=== PATIENT | male | born 1945 | race Caucasian/White ===

== ENCOUNTER 2019-12-29 09:58 | Outpatient (REF) | payer OTHER, MEDICARE, SELFPAY ==
[2019-12-29 11:57] LABS: Prostate Specific Antigen 2.06 ng/mL (<0.05-4.0)
== END 2019-12-29 09:59 | disposition home or self-care (01) ==
LOC: HO.LAB 09:58
PROVIDERS: PCP Internal Medicine; Visit Provider Urology
DX: C61 Malignant neoplasm of prostate (principal)
CPT/HCPCS: 84153

== ENCOUNTER 2020-01-21 16:55 | Outpatient (REF) | payer OTHER, MEDICARE, SELFPAY | END 2020-01-21 16:56 | disposition home or self-care (01) | LOC: HO.LAB 16:55 | PROVIDERS: Visit Provider Internal Medicine | DX: Z20.828 Contact with and (suspected) exposure to other viral communicable diseases (principal) | CPT/HCPCS: U0003 ==

== ENCOUNTER 2020-01-23 10:54 | Outpatient (REF) | payer OTHER, MEDICARE, SELFPAY | END 2020-01-23 10:55 | disposition home or self-care (01) | LOC: HO.LAB 10:54 | PROVIDERS: Visit Provider Internal Medicine | DX: Z20.828 Contact with and (suspected) exposure to other viral communicable diseases (principal) | CPT/HCPCS: C9803; U0003 ==

== ENCOUNTER 2020-03-13 07:36 | Outpatient (REF) | payer OTHER, MEDICARE, SELFPAY | END 2020-03-13 07:37 | disposition home or self-care (01) | LOC: HO.LAB 07:36 | PROVIDERS: Visit Provider Internal Medicine | DX: Z20.828 Contact with and (suspected) exposure to other viral communicable diseases (principal) | CPT/HCPCS: C9803; U0003 ==

== ENCOUNTER 2020-04-07 16:53 | Outpatient (REF) | payer OTHER, MEDICARE, SELFPAY ==
[2020-04-07 19:07] LABS: Prostate Specific Antigen 2.17 ng/mL (<0.05-4.0)
== END 2020-04-07 16:54 | disposition home or self-care (01) ==
LOC: HO.LAB 16:53
PROVIDERS: PCP Internal Medicine; Visit Provider Urology
DX: C61 Malignant neoplasm of prostate (principal)
CPT/HCPCS: 36415; 84153

== ENCOUNTER 2020-04-12 11:00 | Outpatient (REF) | payer OTHER, MEDICARE, SELFPAY | END 2020-04-12 11:01 | disposition home or self-care (01) | LOC: HO.LAB 11:00 | PROVIDERS: PCP Internal Medicine; Visit Provider Internal Medicine | DX: Z20.822 Contact with and (suspected) exposure to COVID-19 (principal) | CPT/HCPCS: 36415; C9803; U0003 ==

== ENCOUNTER → 2020-06-04 15:07 | Outpatient (BNVA) | payer MEDICARE, OTHER, SELFPAY | PROVIDERS: PCP Internal Medicine; Visit Provider Urology | CPT/HCPCS: Q3014 ==

== ENCOUNTER 2020-07-11 07:40 | Outpatient (REF) | payer OTHER, MEDICARE, SELFPAY ==
[2020-07-11 08:16] LABS: COVID-19 Test Negative (Negative); IDNOW Serial# 55D5AD1C
== END 2020-07-11 07:41 | disposition home or self-care (01) ==
LOC: HO.LAB 07:40
PROVIDERS: Visit Provider Internal Medicine
DX: Z20.822 Contact with and (suspected) exposure to COVID-19 (principal)
CPT/HCPCS: 36415; 87635; C9803

== ENCOUNTER 2020-12-04 07:24 | Outpatient (REF) | payer OTHER, MEDICARE, SELFPAY ==
[2020-12-04 09:37] LABS: Prostate Specific Antigen 2.95 ng/mL (<0.05-4.0)
== END 2020-12-04 07:25 | disposition home or self-care (01) ==
LOC: HO.LAB 07:24
PROVIDERS: PCP Internal Medicine; Visit Provider Urology
DX: Z12.5 Encounter for screening for malignant neoplasm of prostate (principal); N13.8 Other obstructive and reflux uropathy; N40.1 Benign prostatic hyperplasia with lower urinary tract symptoms
CPT/HCPCS: 36415; 84153

== ENCOUNTER → 2020-12-09 13:29 | Outpatient (BNVA) | payer OTHER, MEDICARE, SELFPAY | PROVIDERS: PCP Internal Medicine; Visit Provider Urology ==

== ENCOUNTER 2021-03-03 11:50 | Emergency (ER) | payer OTHER, MEDICARE, SELFPAY ==
--- NOTE | ~2021-03-03 | US_ITS ---
EXAMINATION: US VENOUS ULTRASOUND WITH DOPPLER LOWER EXTREMITY, RIGHT CLINICAL INFORMATION: Right leg pain. Suspected DVT. COMPARISON: None TECHNIQUE: Ultrasound of the deep veins is performed from the hip to the calf with compression sonography and color and pulse Doppler assessment. Spectral analysis with color-flow imaging is performed. FINDINGS: There is normal venous compression and respiratory variation and augmented flow. The visualized common femoral vein, superficial femoral vein, profunda femoral vein, popliteal vein, and the trifurcation region shows no evidence of deep venous thrombosis. There is no significant popliteal fossa cyst. If the patient's symptoms persist, followup ultrasound in 5 days 7 days might be of value to exclude proximal propagation from a non-visualized calf vein. US/US venous duplex LE RT IMPRESSION: No DVT demonstrated in the right lower extremity.
--- NOTE | ~2021-03-03 | XR_ITS ---
EXAMINATION: XR KNEE, RIGHT CLINICAL INFORMATION: Right knee pain COMPARISON: None TECHNIQUE: Four views of the right knee. FINDINGS: There is no fracture or dislocation or destructive process. There is thickening of the distal quadriceps with spurring at the patellar insertion. Hoffa's fat pad appears normal. There is no focal joint narrowing or erosive change or chondrocalcinosis. Scattered atherosclerotic calcifications vasculature is seen. XR/XR knee RT 4V IMPRESSION: Spurring at quadriceps insertion patella.
[2021-03-03 11:57] VITALS: BP 146/74; PULSE 65; RESP 18; TEMP 36.6; O2SAT 98; BMI 23.3
[2021-03-03 15:47] LABS: Basophils Percent Auto 0.1 % (0-2); Eosinophils Absolute Auto 0.7 X10*3/uL (0.0-0.4); Eosinophils Percent Auto 10.7 % (0-4); Hematocrit 43.6 % (42.0-52.0); Hemoglobin 14.9 g/dl (14.0-18.0); Imm Gran Abs Auto 0.01 X10*3/uL (0.00-0.03); Imm Gran Pct Auto 0.1 % (0.0-0.4); Lymphocytes Absolute Auto 1.3 X10*3/uL (1.2-4.9); Lymphocytes Percent Auto 18.5 % (20-40); MANUAL DIFF FLAG NO; Mean Corpuscular HGB Conc 34.2 g/dl (31.0-36.0); Mean Corpuscular Hemoglobin 30.8 pg (27.0-33.0); Mean Corpuscular Volume 90.3 fL (80.0-98.0); Monocytes Absolute Auto 0.5 X10*3/uL (0.1-1.2); Monocytes Percent Auto 7.9 % (2-11); Neutrophils Absolute Auto 4.3 x10*3/uL (2.0-8.3); Neutrophils Percent Auto 62.7 % (45-73); Platelet Count 191 X10*3/uL (160-400); Red Blood Count 4.83 X10*6/uL (4.60-5.80); Red Cell Distribution Width 12.9 % (11.0-16.0); White Blood Count 6.9 X10*3/uL (4.8-10.8)
[2021-03-03 15:53] LABS: Partial Thromboplastin Time 36.4 SEC (24.1-38.0)
[2021-03-03 16:09] VITALS: BP 137/77; PULSE 60; RESP 17; TEMP 36.2; O2SAT 98
[2021-03-03 16:18] LABS: Anion Gap 11 (12-20); Blood Urea Nitrogen 16 mg/dL (9-16); Calcium 9.2 mg/dL (8.4-10.2); Carbon Dioxide 29 mmol/L (22-29); Chloride 105 mmol/L (96-108); Creatinine Clr Calc Pharmacy 57.9; Estimated Glomerular Filt Rate > 60; Glucose Random 93 mg/dL (60-115); Potassium 4.8 mmol/L (3.3-5.1); Sodium 140 mmol/L (135-145)
--- NOTE | 2021-03-03 16:44 | ED_ITS ---
HPI - Extremity Problem General Chief complaint: General Medical Stated complaint: Blood clot R leg? 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 Denies any fevers, chills, dizziness, headaches, neck pain / stiffness, chest pain or shortness of breath, dyspnea on exertion, orthopnea, palpitations, nausea/ vomiting/ diarrhea, abdominal pain, lower extremity edema or calf tenderness, recent travel or sick contacts, recent falls, paresthesias, numbness / tingling, rashes, surrounding erythema, swelling, Cyanosis, trauma or any other symptoms complaints or concerns at this time. MD Complaint: extremity pain Onset (ago): day(s) (5) Pain Consistency: constant Location: right Quality: aching Radiation: none Relieving factors: nothing Exacerbating factors: palpation ( or flexion of the knee) Associated symptoms: denies other symptoms Context: history of DVT ( on Eliquis due to DVT to left lower extremity) Related Data Home Medications Medication Instructions Recorded Confirmed apixaban 5 mg tablet 5 mg PO BID 06/04/20 peg 3350-electrolytes 236 8 ml PO DIRECTED 06/04/20 gram-22.74 gram-6.74 gram-5.86 gram solution Previous Rx's Medication Instructions Recorded tramadol 50 mg tablet 50 mg PO Q8H PRN #14 tab 03/03/21 Allergies Allergy/AdvReac Type Severity Reaction Status Date / Time No Known Allergies Allergy Verified 06/04/20 15:31 Review of Systems Review of Systems: Constitutional : No Weight loss, No Fever, No Chills, No Night Sweats, No Fatigue, No Malaise ENT/Mouth : No Hearing loss, No Ear Pain, No Nasal Congestion, No Sinus Pain, No Hoarseness, No sore throat, No Rhinorrhea, No Swallowing Difficulty Eyes: No Eye Pain, No Swelling, No Redness, No Foreign Body, No Discharge, No Vision Changes Cardiovascular : No Chest Pain, No SOB, No Dyspnea on Exertion, No Orthopnea, No Edema, No Palpitations Respiratory : No Cough, No Sputum, No Wheezing, No Smoke Exposure, No Dyspnea Gastrointestinal : No Nausea, No Vomiting, No Diarrhea, No Constipation, No abdominal Pain, No Hematochezia, No Melena Genitourinary : no irregular bleeding, No Dysuria, No Urinary Frequency, No Hematuria, No Urinary Incontinence, No Urgency, No Flank Pain, No Urinary Flow Changes, No Hesitancy Musculoskeletal : + right knee joint pain, No Myalgias, No Joint Swelling Skin : No Skin Lesions, No rash Neuro : No Weakness, No Numbness, No Paresthesias, No Loss of Consciousness, No Dizziness, No Headache Psych : No Anxiety/Panic, No Depression, No SI/HI/AH/VH, No Social Issues, Heme/Lymph: No Bruising, No Bleeding,No Lymphadenopathy Endocrine : No Polyuria, No Polydipsia, No Temperature Intolerance Yes all other systems are reviewed and are negative [facility] Past Medical History Attestation statement: The following information was validated with the patient. Medical History Elevated PSA Prostate cancer Social History Social History Advance Directives: No Advance Directives Information Provided: No Physical Exam Vital Signs: Vital Signs: Last Vital Signs Temp 97.2 F 03/03/21 16:09 Pulse 60 03/03/21 16:09 Resp 17 03/03/21 16:09 BP 137/77 03/03/21 16:09 Pulse Ox 98 03/03/21 16:09 BMI result Body Mass Index 23.3 vital signs have been reviewed as normal and appeared to be correct. Blood pressure 146/74. Heart rate normal. Respiration rate normal. Temperature normal. Oxygen saturation normal. Appearance: Alert. Oriented X3. No acute distress. Head: Normal external exam. Normocephalic. Atraumatic. Eyes: PERRLA. EOMI. Conjunctiva and sclera normal. Eyelids normal. ENT: Pharynx normal. Uvula midline. Moist mucous membranes. Neck: Normal inspection. Neck supple. FROM. No adenopathy. No meningeal signs. CVS: Normal heart rate and rhythm. Heart sound normal. Pulses normal throughout. No murmurs/rales/gallops. Respiratory: No respiratory distress. Painless inspiration. Breath sounds normal. No wheezes/rales/rhonchi noted. Chest nontender. No accessory muscle usage noted or decreased air movement noted. Back: Full range of motion noted. No rashes/lesion/induration/fluctuance or signs of infection noted. Skin: Skin warm and dry. Normal skin color. Normal skin turgor. No rashes/lesions/lacerations noted. Extremities: No lower extremity edema. no calf tenderness is noted. Patient noted to have mild tenderness to palpation with flexion of the knee at the medial aspect no obvious ligamentous or tendon injury. No signs of infection. No joint effusion noted. No fluctuance/induration/ rashes noted. Otherwise patient has full range of motion of the right knee. And otherwise all other Extremities exhibit normal range of motion and nontender. Neuro: Oriented X 3. No motor deficit. No sensory deficit. Reflexes normal. Normal steady gait. No focal neuro deficits noted. Vascular: + radial pulses/+ 2 distal pedal pulses/+2 dorsalis pedis b/l. Normal cap refill. No cyanosis noted to upper extremity nails and lower extremity toes nails. Course Course Course Narrative: x-ray revealed bone spur/chronic changes no acute processes. Therefore will DC home with symptomatic treatment instructions follow-up with PCP. Patient understands agrees with this plan. 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 on exam patient has mild tenderness no obvious ligamentous to tenderness or signs of infection no joint effusion. No calf tenderness. No lower extremity edema noted. ultrasound ordered while the patient was in the waiting room and negative for DVT. Therefore x-ray of right knee ordered at this time. Will re- evaluate. If x-ray negative will DC home with symptomatic treatment instructions follow up with his PCP and to return if any new or worsening symptoms. Patient understands agrees this time. Differential Diagnosis Differential diagnosis: Likely gout, superficial thrombophlebitis and deep vein thrombosis of lower extremity Medical Records Attestation: I reviewed the patient's medical records. Lab Data Result diagrams: 03/03/21 15:38 03/03/21 15:38 Labs: Lab Results 03/03/21 03/03/21 03/03/21 Range/Units 15:38 15:38 15:38 WBC 6.9 (4.8-10.8) X10*3/uL RBC 4.83 (4.60-5.80) X10*6/uL Hgb 14.9 (14.0-18.0) g/dl Hct 43.6 (42.0-52.0) % MCV 90.3 (80.0-98.0) fL MCH 30.8 (27.0-33.0) pg MCHC 34.2 (31.0-36.0) g/dl RDW 12.9 (11.0-16.0) % Plt Count 191 (160-400) X10*3/uL MPV 10.0 (9.4-12.4) fL Immature Gran % (Auto) 0.1 (0.0-0.4) % Neut % (Auto) 62.7 (45-73) % Lymph % (Auto) 18.5 L (20-40) % [place] % (Auto) 7.9 (2-11) % Eos % (Auto) 10.7 H (0-4) % Baso % (Auto) 0.1 (0-2) % Lymph # (Auto) 1.3 (1.2-4.9) X10*3/uL [place] # (Auto) 0.5 (0.1-1.2) X10*3/uL Eos # (Auto) 0.7 H (0.0-0.4) X10*3/uL Baso # (Auto) 0.0 (0.0-0.2) X10*3/uL Abs Immat Gran (auto) 0.01 (0.00-0.03) X10*3/uL Absolute Neuts (auto) 4.3 (2.0-8.3) x10*3/uL Absolute Nucleated RBC 0.000 (0.0-0.012) X10*3/uL Nucleated RBC % (auto) 0.0 (0.0-0.2) /100WBC APTT 36.4 (24.1-38.0) SEC Sodium 140 (135-145) mmol/L Potassium 4.8 (3.3-5.1) mmol/L Chloride 105 (96-108) mmol/L Carbon Dioxide 29 (22-29) mmol/L Anion Gap 11 L (12-20) BUN 16 (9-16) mg/dL Creatinine 1.01 (0.5-1.4) mg/dL Estim Creat Clear Calc 57.9 Estimated GFR > 60 Random Glucose 93 (60-115) mg/dL Calcium 9.2 (8.4-10.2) mg/dL Imaging Data Right knee x-ray: Attestation: I personally reviewed and interpreted this imaging study as follows: Radiologist's impression: FINDINGS: There is no fracture or dislocation or destructive process. There is thickening of the distal quadriceps with spurring at the patellar insertion. Hoffa's fat pad appears normal. There is no focal joint narrowing or erosive change or chondrocalcinosis. Scattered atherosclerotic calcifications vasculature is seen.? XR/XR knee RT 4V IMPRESSION: Spurring at quadriceps insertion patella. venous duplex ultrasound of right lower extremity: Attestation: I personally reviewed and interpreted this imaging study as follows: Radiologist's impression: FINDINGS: There is normal venous compression and respiratory variation and augmented flow. The visualized common femoral vein, superficial femoral vein, profunda femoral vein, popliteal vein, and the trifurcation region shows no evidence of deep venous thrombosis. ? There is no significant popliteal fossa cyst. If the patient's symptoms persist, followup ultrasound in 5 days 7 days might be of value to exclude proximal propagation from a non-visualized calf vein. US/US venous duplex LE RT IMPRESSION: No DVT demonstrated in the right lower extremity. Discharge Plan Discharge Clinical Impression: Osteoarthritis, Bone spur Patient Disposition: Home, Self-Care Instructions: Osteoarthritis (ED), Tendinitis (ED) Prescriptions: New tramadol 50 mg tablet 50 mg PO Q8H PRN (Reason: pain) Qty: 14 RF: 0 Referrals: Zeke Herrera MD [Primary Care Provider] - 2 days Print Language: Ukrainian
== END 2021-03-03 18:25 | disposition home or self-care (01) ==
PROVIDERS: Emergency Provider Emergency Medicine; PCP Internal Medicine
DX: M25.561 Pain in right knee (principal); M17.11 Unilateral primary osteoarthritis, right knee; M77.9 Enthesopathy, unspecified; Z86.718 Personal history of other venous thrombosis and embolism; Z79.01 Long term (current) use of anticoagulants; Z85.46 Personal history of malignant neoplasm of prostate
CPT/HCPCS: 36415; 73564; 80048; 85025; 85730; 93971; 99284

== ENCOUNTER 2021-03-16 09:13 | Outpatient (REF) | payer OTHER, MEDICARE, SELFPAY ==
[2021-03-16 11:04] LABS: COVID-19 Test Negative (Negative)
== END 2021-03-16 09:14 | disposition home or self-care (01) ==
LOC: HO.LAB 09:13
PROVIDERS: Visit Provider Internal Medicine
DX: Z20.822 Contact with and (suspected) exposure to COVID-19 (principal)
CPT/HCPCS: 36415; 87635; C9803

== ENCOUNTER 2021-03-18 11:44 | Outpatient (REF) | payer OTHER, MEDICARE, SELFPAY ==
[2021-03-18 14:31] LABS: COVID-19 Test Positive (Negative)
== END 2021-03-18 11:45 | disposition home or self-care (01) ==
LOC: HO.LAB 11:44
PROVIDERS: Visit Provider Internal Medicine
DX: Z20.822 Contact with and (suspected) exposure to COVID-19 (principal)
CPT/HCPCS: 36415; 87635; C9803

== ENCOUNTER 2021-04-09 07:17 | Outpatient (REF) | payer OTHER, MEDICARE, SELFPAY | END 2021-04-09 07:18 | disposition home or self-care (01) | LOC: HO.LAB 07:17 | PROVIDERS: PCP Internal Medicine; Visit Provider Urology | DX: Z12.5 Encounter for screening for malignant neoplasm of prostate (principal); C61 Malignant neoplasm of prostate | CPT/HCPCS: 36415; 84153 ==

== ENCOUNTER 2021-04-10 13:54 | Outpatient (REF) | payer OTHER, MEDICARE, SELFPAY ==
[2021-04-10 16:19] LABS: Urine Cytology See Pathology rpt
== END 2021-04-10 13:55 | disposition home or self-care (01) ==
LOC: HO.LAB 13:54
PROVIDERS: PCP Internal Medicine; Visit Provider Urology
DX: C61 Malignant neoplasm of prostate (principal); Z13.9 Encounter for screening, unspecified
CPT/HCPCS: 88112

== ENCOUNTER 2021-04-27 14:58 | Outpatient (REF) | payer OTHER, MEDICARE, SELFPAY ==
[2021-04-29 13:54] LABS: Vitamin B12 572 pg/mL (200-900)
== END 2021-04-27 14:59 | disposition home or self-care (01) ==
LOC: HO.LAB 14:58
PROVIDERS: PCP Internal Medicine; Visit Provider Psychiatry & Neurology Neurology
DX: G31.84 Mild cognitive impairment of uncertain or unknown etiology (principal)
CPT/HCPCS: 36415; 82607

== ENCOUNTER 2021-06-25 09:37 | Emergency (ER) | payer OTHER, MEDICARE, SELFPAY ==
--- NOTE | ~2021-06-25 | XR_ITS ---
EXAMINATION: XR CHEST CLINICAL INFORMATION: Cough COMPARISON: None TECHNIQUE: 2 views of the chest were obtained. FINDINGS: The lungs are well expanded. There is no focal consolidation, edema, or effusion. No pneumothorax. The cardiomediastinal silhouette is within normal limits. No acute osseous abnormality. Degenerative changes of the spine. XR/XR chest 2V IMPRESSION: Unremarkable examination.
[2021-06-25 09:50] VITALS: BP 137/76; PULSE 82; RESP 16; TEMP 37.2; O2SAT 98; BMI 22.8
[2021-06-25 10:42] LABS: COVID-19 Test Negative (Negative)
[2021-06-25 10:46] LABS: Influenza A Negative (Negative); Influenza B2 Negative (Negative)
[2021-06-25 12:42] VITALS: PULSE 69; RESP 20; O2SAT 99
[2021-06-25] MEDS: Albuterol/Iprat 2.5/0.5MG 3 ML AMPUL.NEB INHALE (12:42)
[2021-06-25] MEDS: Benzonatate 100 MG CAPSULE PO (12:50)
[2021-06-25] MEDS: HYDROcodone/Homat 5/1.5/5 ML 5 ML SYRUP PO (12:50)
--- NOTE | 2021-06-25 14:22 | ED.URI ---
HPI - URI/Sore Throat General Chief Complaint: Upper Respiratory Symptoms Stated Complaint: cough Time Seen by Provider: 06/25/21 12:18 Source: patient Mode of arrival: ambulatory History of Present Illness HPI Narrative: 76-year-old male with a past medical history of prostate CA, presenting to the ED complaining of nonproductive cough, rhinorrhea/nasal congestion x few days. Admits to taking at home COVID test that was negative. Denies fever, chills, ear pain, sore throat, SOB, CP, pedal edema, calf pain, recent travel, sick contacts. MD elicited complaint: cough, rhinorrhea and nasal congestion Onset (ago): day(s) Related Data Home Medications Medication Instructions Recorded Confirmed apixaban 5 mg tablet 5 mg PO BID 06/04/20 peg 3350-electrolytes 236 8 ml PO DIRECTED 06/04/20 gram-22.74 gram-6.74 gram-5.86 gram solution Previous Rx's Medication Instructions Recorded tramadol 50 mg tablet 50 mg PO Q8H PRN #14 tab 03/03/21 albuterol sulfate 90 mcg/actuation 2 puff INHALATION Q4-6H PRN #6.7 g 06/25/21 aerosol inhaler azithromycin 250 mg tablet See Rx Instructions .ROUTE 06/25/21 .COMPLEX #6 tab benzonatate 100 mg capsule 100 mg PO TID PRN #14 cap 06/25/21 fluticasone propionate 50 2 spray INTRANASAL DAILY #16 g 06/25/21 mcg/actuation nasal spray,suspension (Flonase Allergy Relief) Allergies Allergy/AdvReac Type Severity Reaction Status Date / Time No Known Allergies Allergy Verified 04/10/21 14:02 Review of Systems Review of Systems: Constitutional: No Fever, No Chills ENT/Mouth: No Ear Pain, + Nasal Congestion, No Sinus Pain, No Hoarseness, No sore throat, + Rhinorrhea, No Swallowing Difficulty Cardiovascular: No Chest Pain, No SOB Respiratory: + Cough, No Sputum, No Wheezing Gastrointestinal: No Nausea, No Vomiting, No Diarrhea, No Constipation, No Abdominal pain Genitourinary: No Dysuria, No Urinary Frequency, No Urgency, No Flank Pain Musculoskeletal: No joint pain, No Myalgias, No Joint Swelling Skin: No Skin Lesions, No rash Neuro: No Weakness, No Numbness, No Paresthesias Yes all other systems are reviewed and are negative COUNTS INCLUDE 234 BEDS AT THE [facility] Past Medical History Attestation statement: The following information was validated with the patient. Medical History Elevated PSA Prostate cancer Social History Social History Advance Directives: Yes Advance Directives Information Provided: Yes Advance Directives on File: No Physical Exam Vital Signs: Vital Signs: Last Vital Signs Temp 98.9 F 06/25/21 09:50 Pulse 69 06/25/21 12:42 Resp 20 06/25/21 12:42 BP 137/76 06/25/21 09:50 Pulse Ox 98 06/25/21 09:50 BMI result Body Mass Index 22.8 Const: General: cooperative, healthy appearing and no acute distress Orientation/consciousness: patient oriented x3 Limitations: no limitations HEENT: Head: Yes normal to inspection Ears: hearing grossly normal bilaterally, external ears normal, TM's normal bilaterally and mastoids normal General nose exam: Normal external nose present Face and sinus: Yes normal facial exam Mouth: Normal oral and palatal mucosa present Throat: Yes posterior oropharynx normal, Yes uvula midline, No peritonsillar mass, No uvula laterally displaced and No uvular edema Eyes: General: appearance normal, both eyes and all related structures EOM: EOMs intact bilaterally Neck: Neck: Yes normal visual inspection and Yes no meningeal signs Resp: Other: Coarse lung sounds throughout. Good air movement. Effort & Inspection: normal respiratory effort, no respiratory distress, no stridor and not tachypneic Auscultation: no wheezes Cardio: Rate: regular rate Heart sounds: S1 normal heart sound present and S2 normal heart sound present Skin: Rashes: no rashes Wounds: no wounds Neuro: General: patient oriented x3 and no meningeal signs Gait exam (Neuro): Normal gait present Extrem: General: Yes normal to inspection, Yes no pedal edema and Yes no calf tenderness Course Course Course Narrative: -COVID-19/influenza negative XR chest 2V IMPRESSION: Unremarkable examination. >> results discussed with patient including worrisome signs and symptoms and strict return precautions MDM - URI/Sore Throat MDM Narrative Medical decision making narrative: 76-year-old male with a past medical history of prostate CA, presenting to the ED complaining of nonproductive cough, rhinorrhea/nasal congestion x few days. On exam vital signs stable, NAD/nontoxic-appearing, physical exam as above. Concern for viral syndrome including COVID-19/influenza vs pneumonia vs bronchitis. Low concern for ACS/PE Plan: CXR, COVID-19/influenza testing, DuoNeb, Tessalon Perles/Hycodan Differential Diagnosis Differential diagnosis: Likely upper respiratory infection, sinusitis, viral infection, bronchitis and influenza Medical Records Attestation: I reviewed the patient's medical records. Lab Data Attestation: I reviewed the patient's lab results. Labs: Lab Results 06/25/21 06/25/21 Range/Units 09:56 09:56 COVID-19 ([facility]) Negative (Negative) COVID-19 Clin Com See Note Influenza Type A (CUONG) Negative (Negative) Influenza Type B (CUONG) Negative (Negative) Influenza A & B Note See Note Discharge Plan Discharge Clinical Impression: Upper respiratory infection Patient Disposition: Home, Self-Care Instructions: Upper Respiratory Infection (DC) Additional Instructions: You tested negative for COVID-19 and the flu. your chest x-ray was unremarkable Azithromycin is an antibiotic please take as prescribed. Tessalon Perles are for cough. Flonase is a nasal decongestion, take as needed Albuterol is an inhaler which will help open your airways, use for wheezing/shortness of breath If her symptoms persist or worsen, you develop fever, shortness of breath, chest pain please return to the emergency department. Please follow-up with your doctor Prescriptions: New azithromycin 250 mg tablet See Rx Instructions .ROUTE .COMPLEX Qty: 6 0RF Rx Instructions: take 500 mg today (day 1), then 250 mg for 4 days (days 2-5) albuterol sulfate 90 mcg/actuation HFA aerosol inhaler 2 puff inhalation Q4-6H PRN (Reason: shortness of breath or wheezing) Qty: 6.7 0RF fluticasone propionate [Flonase Allergy Relief] 50 mcg/actuation spray,suspension 2 spray intranasal DAILY Qty: 16 0RF Rx Instructions: administer into each nostril benzonatate 100 mg capsule 100 mg PO TID PRN (Reason: cough) Qty: 14 0RF No Action tramadol 50 mg tablet 50 mg PO Q8H PRN (Reason: pain) Qty: 14 0RF Rx Instructions: May partially fill upon patient request Eliquis 5 mg tablet 5 mg PO BID 0RF peg 3350-electrolytes 236-22.74-6.74 -5.86 gram recon soln 8 ml PO DIRECTED 0RF Referrals: Zeke Herrera III, MD [Primary Care Provider] - 3 days Stand Alone Forms: Work/School Release Interventions: ED Discharge Assessment Last Done: 06/25/21 14:35 Discharge Date/Time: 06/25/21 14:36
== END 2021-06-25 14:36 | disposition home or self-care (01) ==
PROVIDERS: Emergency Provider Emergency Medicine Emergency Medical Services; PCP Internal Medicine
DX: J06.9 Acute upper respiratory infection, unspecified (principal); Z20.822 Contact with and (suspected) exposure to COVID-19
CPT/HCPCS: 71046; 87502; 87635; 94640; 99284

== ENCOUNTER 2021-08-06 06:56 | Outpatient (REF) | payer OTHER, MEDICARE, SELFPAY ==
[2021-08-06 07:58] LABS: Prostate Specific Antigen 2.68 ng/mL (<0.05-4.0)
== END 2021-08-06 06:57 | disposition home or self-care (01) ==
LOC: HO.LAB 06:56
PROVIDERS: PCP Internal Medicine; Visit Provider Urology
DX: Z12.5 Encounter for screening for malignant neoplasm of prostate (principal); C61 Malignant neoplasm of prostate
CPT/HCPCS: 36415; 84153

== ENCOUNTER → 2021-08-07 14:51 | Outpatient (BNVA) | payer OTHER, MEDICARE, SELFPAY | PROVIDERS: PCP Internal Medicine; Visit Provider Urology | DX: C61 Malignant neoplasm of prostate (principal) ==

== ENCOUNTER 2021-11-25 14:36 | Outpatient (REF) | payer OTHER, MEDICARE, SELFPAY ==
[2021-11-25 16:12] LABS: Vitamin B12 566 pg/mL (200-900)
[2021-11-27 05:56] LABS: Prolactin 5.5 ng/mL (2.0-18.0)
== END 2021-11-25 14:37 | disposition home or self-care (01) ==
LOC: HO.LAB 14:36
PROVIDERS: PCP Internal Medicine; Visit Provider Psychiatry & Neurology Neurology
DX: G31.84 Mild cognitive impairment of uncertain or unknown etiology (principal); E23.7 Disorder of pituitary gland, unspecified
CPT/HCPCS: 36415; 82607; 84146

== ENCOUNTER 2022-02-08 09:52 | Outpatient (REF) | payer OTHER, MEDICARE, SELFPAY | END 2022-02-08 09:53 | disposition home or self-care (01) | LOC: HO.LAB 09:52 | PROVIDERS: PCP Internal Medicine; Visit Provider Urology | DX: Z12.5 Encounter for screening for malignant neoplasm of prostate (principal); C61 Malignant neoplasm of prostate; N40.1 Benign prostatic hyperplasia with lower urinary tract symptoms; N13.8 Other obstructive and reflux uropathy | CPT/HCPCS: 36415; 84153 ==

== ENCOUNTER 2022-02-27 11:41 | Emergency (ER) | payer OTHER, MEDICARE, SELFPAY ==
--- NOTE | ~2022-02-27 | XR_ITS ---
EXAMINATION: XR FOOT, RIGHT CLINICAL INFORMATION: Right foot pain. COMPARISON: None TECHNIQUE: AP, lateral, and oblique views of the right foot. FINDINGS: There is no acute fracture or dislocation. Mild first metatarsophalangeal degenerative joint changes are seen. The tarsal bones are normally aligned. Very small plantar and retrocalcaneal spurs are seen. Moderate to severe atherosclerosis is seen. XR/XR foot RT 2V IMPRESSION: 1. Mild first metatarsophalangeal osteoarthritis. 2. Very small degenerative calcaneal spurs. 3. Moderate to severe atherosclerosis.
[2022-02-27 11:47] VITALS: BP 167/86; PULSE 70; RESP 18; TEMP 36.9; O2SAT 99; BMI 23.9
--- NOTE | 2022-02-27 11:57 | ED_ITS ---
HPI - Extremity Problem General Chief complaint: Extremity Injury, Lower Stated complaint: r foot pain Time Seen by Provider: 02/27/22 11:55 Source: patient Mode of arrival: ambulatory Limitations: no limitations History of Present Illness HPI Narrative: 76 yo male with history of LLE DVT on Eliquis and prostate cancer who presents to the ER for evaluation of nontraumatic right foot pain that started a couple of days ago. He states yesterday the pain was worse after he was on his feet all day. 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 He states the pain is right in the arch of his foot and he denies any injury. Denies any numbness, tingling or coolness of the extremity. He states it is tender to touch and tender when he plantar flexes. No swelling or redness. He is ambulatory. MD Complaint: extremity pain Onset (ago): day(s) Location: right and lower extremity Quality: aching Radiation: none Relieving factors: immobilization and rest Exacerbating factors: weight bearing, walking and palpation Associated symptoms: denies other symptoms Related Data Home Medications Medication Instructions Recorded Confirmed apixaban 5 mg tablet 5 mg PO BID 06/04/20 02/09/22 peg 3350-electrolytes 236 8 ml PO DIRECTED 06/04/20 02/09/22 gram-22.74 gram-6.74 gram-5.86 gram solution Previous Rx's Medication Instructions Recorded tramadol 50 mg tablet 50 mg PO Q8H PRN pain #14 tabs 03/03/21 albuterol sulfate 90 mcg/actuation 2 puff inhalation Q4-6H PRN 06/25/21 aerosol inhaler shortness of breath or wheezing #6.7 grams azithromycin 250 mg tablet See Rx Instructions PO .COMPLEX #6 06/25/21 tabs benzonatate 100 mg capsule 100 mg PO TID PRN cough #14 caps 06/25/21 fluticasone propionate 50 2 spray intranasal DAILY #16 grams 06/25/21 mcg/actuation nasal spray,suspension (Flonase Allergy Relief) finasteride 5 mg tablet 5 mg PO DAILY 90 days #90 tabs 02/09/22 Allergies Allergy/AdvReac Type Severity Reaction Status Date / Time No Known Allergies Allergy Verified 02/09/22 14:33 Review of Systems Review of Systems: Constitutional: No Fever, No Chills Cardiovascular: No Chest Pain, No SOB Gastrointestinal: No Nausea, No Vomiting Musculoskeletal: + joint pain, + Myalgias Skin: No Skin Lesions, No rash Neuro: No Weakness, No Numbness, No Dizziness, No Headache Heme/Lymph: No Bruising, No Lymphadenopathy PMFSH Past Medical History Medical History Elevated PSA Prostate cancer Social History Social History Advance Directives: No Advance Directives Information Provided: No Physical Exam Vital Signs: Vital Signs: Last Vital Signs Temp 98.5 F 02/27/22 11:47 Pulse 70 02/27/22 11:47 Resp 18 02/27/22 11:47 BP 167/86 H 02/27/22 11:47 Pulse Ox 99 02/27/22 11:47 O2 Del Method 02/27/22 11:47 BMI result Body Mass Index 23.9 Appearance: Alert. Oriented X3. No acute distress. HEENT: normal inspection CVS: Normal heart rate and rhythm. Pulses normal. Respiratory: No respiratory distress. Skin: Skin warm and dry. Normal skin color. Normal skin turgor. No rashes. Extremities: Normal inspection of the right foot. Foot is warm and well perfused with 2+ DP pulses. There is tenderness of the arch without any overlying skin changes or wounds. No sensory deficit. Normal range of motion of the foot and ankle with pain upon plantar flexion. Normal inspection and pal pation of the ankle. Neuro: Oriented X 3. No motor deficit. No sensory deficit. Steady gait. 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 X-ray reviewed. Showing some osteoarthritis, degenerative changes and atherosclerosis. His foot is warm and well perfused with no evidence of vascular compromise. His signs and symptoms are most consistent with plantar fasciitis. We discussed management of this and will provide plantar fasciitis exercises. He was encouraged to get inserts for his shoes and follow-up with the news library director if pain process. Stable for discharge home. Discharge Plan Discharge Clinical Impression: Plantar fasciitis Patient Disposition: Home, Self-Care Instructions: Plantar Fasciitis (ED), Plantar Fasciitis Exercises (ED) Additional Instructions: Your x-ray today showed: 1.? Mild first metatarsophalangeal osteoarthritis. 2.? Very small degenerative calcaneal spurs. 3.? Moderate to severe atherosclerosis. Recommend getting Dr. Maxwell inserts for your shoes and work boots. You may be better wearing supportive sneaker to work rather than the boots. You can roll your foot on a tennis ball or a frozen water bottle to help stretch out the foot and the plantar fascia. Take Tylenol as needed for pain Recommend following up with your doctor and a Tour Driver if pain persists. Prescriptions: No Action tramadol 50 mg tablet 50 mg PO Q8H PRN (Reason: pain) Qty: 14 0RF Rx Instructions: May partially fill upon patient request azithromycin 250 mg tablet See Rx Instructions .ROUTE .COMPLEX Qty: 6 0RF Rx Instructions: take 500 mg today (day 1), then 250 mg for 4 days (days 2-5) albuterol sulfate 90 mcg/actuation HFA aerosol inhaler 2 puff inhalation Q4-6H PRN (Reason: shortness of breath or wheezing) Qty: 6.7 0RF fluticasone propionate [Flonase Allergy Relief] 50 mcg/actuation spray,suspension 2 spray intranasal DAILY Qty: 16 0RF Rx Instructions: administer into each nostril benzonatate 100 mg capsule 100 mg PO TID PRN (Reason: cough) Qty: 14 0RF Eliquis 5 mg tablet 5 mg PO BID peg 3350-electrolytes 236-22.74-6.74 -5.86 gram recon soln 8 ml PO DIRECTED finasteride 5 mg tablet 5 mg PO DAILY 90 Days Qty: 90 1RF Referrals: Carlos Tracy MD [Physician] -
== END 2022-02-27 12:38 | disposition home or self-care (01) ==
PROVIDERS: Emergency Provider Emergency Medicine; PCP Internal Medicine
DX: M72.2 Plantar fascial fibromatosis (principal); Z86.718 Personal history of other venous thrombosis and embolism; Z79.01 Long term (current) use of anticoagulants; Z85.46 Personal history of malignant neoplasm of prostate
CPT/HCPCS: 73620; 99282; 99283

== ENCOUNTER 2022-07-29 09:43 | Emergency (ER) | payer OTHER, MEDICARE, SELFPAY ==
--- NOTE | ~2022-07-29 | CT_ITS ---
CT ANGIOGRAM BRAIN, HEAD CLINICAL INFORMATION: Double vision. COMPARISON: None available. TECHNIQUE: Test bolus sequences followed by intravenous administration 70 mL of Omnipaque 350 intravenous contrast. Helical imaging was performed in the axial plane from the skull base to the vertex. Delayed postcontrast imaging of the head was also performed. The data was processed at the technologist infectious disease workstation for generation of MIP sequences. Three-dimensional volume rendered reformatted images were also generated at an offline 3-D workstation. The degree of stenosis determined by NASCET criteria. This CT examination was performed using dose optimization techniques as appropriate, variously including the following: *Automated exposure control *Adjustment of mA and/or kV according to patient size (this includes techniques or standardized protocols for targeted exams where dose is matched to indication/reason for exam; i.e. extremities or head) *Use of iterative reconstruction technique FINDINGS: The anterior and posterior intracranial arterial circulations are normal in caliber. No significant arterial stenoses and no acute arterial occlusions. No aneurysms and no high flow vascular malformations. Possible nodular thickening of the lower infundibular stalk that would be better assessed with a pituitary protocol MRI with and without IV contrast. There is no intracranial hemorrhage, hydrocephalus, extra-axial surface collection, midline shift, or other herniation pattern. Payne to white matter differentiation is diffusely maintained without evidence of an evolved acute territorial infarct. The basilar cisterns are preserved. No significant soft tissue abnormality. No acute osseous abnormality. The paranasal sinuses and the mastoid air cells are well aerated. CT/CT angio head IMPRESSION: - Possible nodular thickening of the lower infundibular stalk that would be better assessed with a pituitary protocol MRI with and without IV contrast. - Otherwise unremarkable CTA of the head.
[2022-07-29 09:51] VITALS: BP 133/72; PULSE 64; RESP 17; TEMP 36.6; O2SAT 98; BMI 23.7
[2022-07-29 10:00] VITALS: BP 124/65; PULSE 51; O2SAT 96
--- NOTE | 2022-07-29 10:25 | ED_ITS ---
HPI - General Adult General Chief complaint: Eye Problems Stated complaint: seeing double Time Seen by Provider: 07/29/22 10:11 Source: patient Mode of arrival: ambulatory Limitations: no limitations History of Present Illness HPI narrative: 77-year-old male presents with double vision. Symptoms started 2 days ago. There is no clear relieving or exacerbating features. The symptoms are intermittent. Denies any focal deficits. Denies any nausea vomiting. Denies any recent weight loss media or cold intolerance or anterior neck pain. He is describing some slight left-sided eye pain/headache. Patient describes the symptoms as mild to moderate nature. He has never had this before. He reports that if he closes each eye, his vision is fine but when he opens both eyes, that is when he develops a double vision. Related Data Home Medications Medication Instructions Recorded Confirmed apixaban 5 mg tablet 5 mg PO BID 06/04/20 02/09/22 peg 3350-electrolytes 236 8 ml PO DIRECTED 06/04/20 02/09/22 gram-22.74 gram-6.74 gram-5.86 gram solution Previous Rx's Medication Instructions Recorded tramadol 50 mg tablet 50 mg PO Q8H PRN pain #14 tabs 03/03/21 albuterol sulfate 90 mcg/actuation 2 puff inhalation Q4-6H PRN 06/25/21 aerosol inhaler shortness of breath or wheezing #6.7 grams azithromycin 250 mg tablet See Rx Instructions PO .COMPLEX #6 06/25/21 tabs benzonatate 100 mg capsule 100 mg PO TID PRN cough #14 caps 06/25/21 fluticasone propionate 50 2 spray intranasal DAILY #16 grams 06/25/21 mcg/actuation nasal spray,suspension (Flonase Allergy Relief) finasteride 5 mg tablet 5 mg PO DAILY 90 days #90 tabs 02/09/22 Allergies Allergy/AdvReac Type Severity Reaction Status Date / Time No Known Allergies Allergy Verified 02/09/22 14:33 [facility] Past Medical History Medical History Elevated PSA Prostate cancer Social History Social History Smoked in Last 30 Days: No Use of substances other than those prescribed or required for medical reasons: No Advance Directives: No Physical Exam ED Vital Signs: Vital Signs - 24 hr 07/29/22 09:51 07/29/22 10:00 Temperature 97.8 F Pulse Rate 64 51 Respiratory Rate 17 Blood Pressure 133/72 124/65 Pulse Oximetry 98 96 Oxygen Delivery Method Room Air Room Air BMI result Body Mass Index 23.7 GEN: Well developed, no acute distress, alert, oriented HEENT: Normocephalic, atraumatic, normal external ears, nose appears normal, no oropharyngeal edema or exudates Eyes: Normal to appearance, EOMI Neck: Supple, no lymphadenopathy Respiratory: Talks in complete sentences, no respiratory distress, clear to auscultation bilaterally Cardiovascular: Regular rate and rhythm, no murmurs rubs or gallops Abdomen: Soft, nontender, nondistended, no guarding, no rebound Back: No CVA tenderness Extremities: No clubbing cyanosis or edema Neurologic: No focal neurologic deficits, cranial nerves 2-12 intact, strength is 5/5 bilaterally, no nystagmus, no exophthalmos, visual pickett intact Skin: No rash Course Course Course Narrative: Patient presents with double vision. The symptoms are intermittent. Does describe white left-sided headache. Patient will require some imaging and laboratory analysis. Patient denies any active symptoms at this time patient is on blood thinning medications Reevaluation(s) Reevaluation #1: CT scan only identified possible nodular thickening of the lower infundibular stock. Recommended follow-up with an MRI. I doubt this is the etiology of his diplopia. At this point there is no indication that there is temporal arteritis, mass, aneurysm causing the double vision. I would recommend following up with an director long term care and neurologist. I will discuss this with the patient. Time: 13:15 Medications Administered Discontinued Medications Generic Name Dose Route Start Last Admin Trade Name Freq PRN Reason Stop Dose Admin Iohexol 100 ml 07/29/22 12:04 07/29/22 12:05 Iohexol 350 Mg/Ml 100 Ml Infus..Btl IV 07/29/22 12:05 75 ml ONCE ONE Administration Medical Decision Making Medical Decision Making MDM Narrative: Patient presents with double vision. Symptoms started 2 days ago. They are intermittent. His examination is benign without any evidence of exophthalmos, nystagmus, his extraocular muscles are in fact intact. There is no focal deficits, no cerebellar symptoms. Differential diagnosis includes ocular etiology, thyroid dysfunction, temporal arteritis, intracranial mass, mass effect, aneurysm, migraine Plan: CT scan angiogram of the head, TSH, ESR Differential Diagnosis Differential Diagnoses: The differential diagnosis associated with the presentation includes (See above) Lab Data MDM Lab Attestation statement: I reviewed the patient's lab results. 07/29/22 10:54 07/29/22 10:54 Labs: Lab Results 07/29/22 07/29/22 07/29/22 Range/Units 10:54 10:54 10:54 WBC 5.2 (4.8-10.8) X10*3/uL RBC 4.78 (4.60-5.80) X10*6/uL Hgb 14.6 (14.0-18.0) g/dl Hct 42.5 (42.0-52.0) % MCV 88.9 (80.0-98.0) fL MCH 30.5 (27.0-33.0) pg MCHC 34.4 (31.0-36.0) g/dl RDW 12.6 (11.0-16.0) % Plt Count 182 (160-400) X10*3/uL MPV 10.3 (9.4-12.4) fL Immature Gran % (Auto) 0.2 (0.0-0.4) % Neut % (Auto) 48.9 (45-73) % Lymph % (Auto) 19.8 L (20-40) % Morrill % (Auto) 12.8 H (2-11) % Eos % (Auto) 18.1 H (0-4) % Baso % (Auto) 0.2 (0-2) % Lymph # (Auto) 1.0 L (1.2-4.9) X10*3/uL Morrill # (Auto) 0.7 (0.1-1.2) X10*3/uL Eos # (Auto) 0.9 H (0.0-0.4) X10*3/uL Baso # (Auto) 0.0 (0.0-0.2) X10*3/uL Abs Immat Gran (auto) 0.01 (0.00-0.03) X10*3/uL Absolute Neuts (auto) 2.5 (2.0-8.3) x10*3/uL Absolute Nucleated RBC 0.000 (0.0-0.012) X10*3/uL Nucleated RBC % (auto) 0.0 (0.0-0.2) /100WBC ESR 6 (0-15) MM/HR Sodium 139 (135-145) mmol/L Potassium 4.4 (3.3-5.1) mmol/L Chloride 105 (96-108) mmol/L Carbon Dioxide 30 H (22-29) mmol/L Anion Gap 8 L (12-20) BUN 22 H (9-16) mg/dL Creatinine 0.96 (0.5-1.4) mg/dL Estim Creat Clear Calc 59.0 Estimated GFR > 60 Random Glucose 95 (60-115) mg/dL Calcium 8.8 (8.4-10.2) mg/dL C-Reactive Protein 0.35 (< or = 0.50) mg/dL TSH (0.32-4.0) uIU/mL 07/29/22 Range/Units 10:54 WBC (4.8-10.8) X10*3/uL RBC (4.60-5.80) X10*6/uL Hgb (14.0-18.0) g/dl Hct (42.0-52.0) % MCV (80.0-98.0) fL MCH (27.0-33.0) pg MCHC (31.0-36.0) g/dl RDW (11.0-16.0) % Plt Count (160-400) X10*3/uL MPV (9.4-12.4) fL Immature Gran % (Auto) (0.0-0.4) % Neut % (Auto) (45-73) % Lymph % (Auto) (20-40) % Morrill % (Auto) (2-11) % Eos % (Auto) (0-4) % Baso % (Auto) (0-2) % Lymph # (Auto) (1.2-4.9) X10*3/uL Morrill # (Auto) (0.1-1.2) X10*3/uL Eos # (Auto) (0.0-0.4) X10*3/uL Baso # (Auto) (0.0-0.2) X10*3/uL Abs Immat Gran (auto) (0.00-0.03) X10*3/uL Absolute Neuts (auto) (2.0-8.3) x10*3/uL Absolute Nucleated RBC (0.0-0.012) X10*3/uL Nucleated RBC % (auto) (0.0-0.2) /100WBC ESR (0-15) MM/HR Sodium (135-145) mmol/L Potassium (3.3-5.1) mmol/L Chloride (96-108) mmol/L Carbon Dioxide (22-29) mmol/L Anion Gap (12-20) BUN (9-16) mg/dL Creatinine (0.5-1.4) mg/dL Estim Creat Clear Calc Estimated GFR Random Glucose (60-115) mg/dL Calcium (8.4-10.2) mg/dL C-Reactive Protein (< or = 0.50) mg/dL TSH 0.60 (0.32-4.0) uIU/mL Independent Interpretation I performed an independent interpretation of an: CT Scan ( CT/CT angio head IMPRESSION: - Possible nodular thickening of the lower infundibular stalk that would be better assessed with a pituitary protocol MRI with and without IV contrast. - Otherwise unremarkable CTA of the head.) Radiology Impression Discussion of test interpretation with radiology: I have reviewed the radiologist's reading. Tests considered The following testing was considered but not selected: MRI brain Discharge Plan Discharge Clinical Impression: Diplopia, Abnormal CT of the head Patient Disposition: Home, Self-Care Instructions: Computed Tomography Scan (ED), Diplopia (ED) Additional Instructions: You were seen today for double vision. The symptoms are intermittent. Our workup has not clearly identified a cause of your symptoms. However, I am recommending follow-up with a neurologist and a an director long term care. It should be noted that you did have an abnormal finding on the CT scan which may in fact be artifact at. Is recommended that you follow-up with an MRI dedicated to the pituitary. Skin or be ordered by your primary care provider or 1 of the consultants I am referring you to. I do not believe this finding is the etiology of your double vision. Should her symptoms worsen or developing any other concerning symptoms, please return immediately to the emergency department for re-evaluation. Prescriptions: No Action tramadol 50 mg tablet 50 mg PO Q8H PRN (Reason: pain) Qty: 14 0RF Rx Instructions: May partially fill upon patient request azithromycin 250 mg tablet See Rx Instructions .ROUTE .COMPLEX Qty: 6 0RF Rx Instructions: take 500 mg today (day 1), then 250 mg for 4 days (days 2-5) albuterol sulfate 90 mcg/actuation HFA aerosol inhaler 2 puff inhalation Q4-6H PRN (Reason: shortness of breath or wheezing) Qty: 6.7 0RF fluticasone propionate [Flonase Allergy Relief] 50 mcg/actuation spray,suspension 2 spray intranasal DAILY Qty: 16 0RF Rx Instructions: administer into each nostril benzonatate 100 mg capsule 100 mg PO TID PRN (Reason: cough) Qty: 14 0RF Eliquis 5 mg tablet 5 mg PO BID peg 3350-electrolytes 236-22.74-6.74 -5.86 gram recon soln 8 ml PO DIRECTED finasteride 5 mg tablet 5 mg PO DAILY 90 Days Qty: 90 1RF Referrals: Zeke Herrera III, MD [Primary Care Provider] - 5 days Abel Iqbal [Physician] - 1 week Khushbu Alfonso MD [Physician] - 1 week
[2022-07-29 11:04] LABS: MANUAL DIFF FLAG NO
--- NOTE | 2022-07-29 11:06 | PC.NURSE ---
pt c/o 2/10 L eye pain and blurriness that has been happening on and off for a while. he reports that his vision has gotten progressively blurred to the point of not seeing without squinting. denies headache/dizziness/numbness/tingling. hx of prostate cancer. vss. 20g iv inserted L forearm, labs drawn. pt's at his bedside.
[2022-07-29 11:11] LABS: Basophils Percent Auto 0.2 % (0-2); Eosinophils Absolute Auto 0.9 X10*3/uL (0.0-0.4); Eosinophils Percent Auto 18.1 % (0-4); Hematocrit 42.5 % (42.0-52.0); Hemoglobin 14.6 g/dl (14.0-18.0); Imm Gran Abs Auto 0.01 X10*3/uL (0.00-0.03); Imm Gran Pct Auto 0.2 % (0.0-0.4); Lymphocytes Percent Auto 19.8 % (20-40); Mean Corpuscular HGB Conc 34.4 g/dl (31.0-36.0); Mean Corpuscular Hemoglobin 30.5 pg (27.0-33.0); Mean Corpuscular Volume 88.9 fL (80.0-98.0); Mean Platelet Volume 10.3 fL (9.4-12.4); Monocytes Absolute Auto 0.7 X10*3/uL (0.1-1.2); Monocytes Percent Auto 12.8 % (2-11); Neutrophils Absolute Auto 2.5 x10*3/uL (2.0-8.3); Neutrophils Percent Auto 48.9 % (45-73); Platelet Count 182 X10*3/uL (160-400); Red Blood Count 4.78 X10*6/uL (4.60-5.80); Red Cell Distribution Width 12.6 % (11.0-16.0); White Blood Count 5.2 X10*3/uL (4.8-10.8)
[2022-07-29 11:23] LABS: Anion Gap 8 (12-20); Blood Urea Nitrogen 22 mg/dL (9-16); C Reactive Protein 0.35 mg/dL (< or = 0.50); Calcium 8.8 mg/dL (8.4-10.2); Carbon Dioxide 30 mmol/L (22-29); Chloride 105 mmol/L (96-108); Estimated Glomerular Filt Rate > 60; Glucose Random 95 mg/dL (60-115); Potassium 4.4 mmol/L (3.3-5.1); Sodium 139 mmol/L (135-145)
[2022-07-29] MEDS: iohexoL 350 MG/ML 100 ML INFUS..BTL IV (12:05)
[2022-07-29 12:08] LABS: Erythrocyte Sedimentation Rate 6 MM/HR (0-15)
[2022-07-29 13:39] VITALS: BP 139/79; PULSE 71; O2SAT 97
== END 2022-07-29 13:40 | disposition home or self-care (01) ==
PROVIDERS: Emergency Provider Emergency Medicine; PCP Internal Medicine
DX: H53.2 Diplopia (principal); R93.0 Abnormal findings on diagnostic imaging of skull and head, not elsewhere classified; Z79.899 Other long term (current) drug therapy
CPT/HCPCS: 36415; 70496; 80048; 84443; 85025; 85652; 86140; 99284; Q9967

== ENCOUNTER 2022-07-29 13:44 | Outpatient (REF) | payer OTHER, MEDICARE, SELFPAY ==
[2022-07-29 15:55] LABS: Prostate Specific Antigen 2.45 ng/mL (<0.05-4.0)
== END 2022-07-29 13:45 | disposition home or self-care (01) ==
LOC: HO.LAB 13:44
PROVIDERS: PCP Internal Medicine; Visit Provider Urology
DX: Z12.5 Encounter for screening for malignant neoplasm of prostate (principal); C61 Malignant neoplasm of prostate
CPT/HCPCS: 36415; 84153

== ENCOUNTER 2022-08-02 11:32 | Outpatient (REF) | payer OTHER, MEDICARE, SELFPAY ==
[2022-08-06 19:49] LABS: Acetylcholine Recept. Blocking <15 (<15)
[2022-08-08 17:54] LABS: Acetylcholine Recep Modulating 4
[2022-08-10 20:12] LABS: Acetylcholine Receptor Binding <0.30 nmol/L
== END 2022-08-02 11:33 | disposition home or self-care (01) ==
LOC: HO.LDS 11:32
PROVIDERS: Visit Provider Psychiatry & Neurology Neurology
DX: H53.2 Diplopia (principal)
CPT/HCPCS: 36415; 83519

== ENCOUNTER → 2022-08-11 14:06 | Outpatient (BNVA) | payer OTHER, MEDICARE, SELFPAY | PROVIDERS: PCP Internal Medicine; Visit Provider Urology ==

== ENCOUNTER 2022-09-01 09:18 | Outpatient (REF) | payer OTHER, MEDICARE, SELFPAY ==
[2022-09-10 19:44] LABS: Acetylcholine Receptor Binding <0.30 nmol/L
[2022-09-11 16:33] LABS: Acetylcholine Recept. Blocking <15 (<15)
[2022-09-22 16:14] LABS: Acetylcholine Recep Modulating 22
== END 2022-09-01 09:19 | disposition home or self-care (01) ==
LOC: HO.LAB 09:18
PROVIDERS: Psychiatry & Neurology Neurology; PCP Internal Medicine; Visit Provider Internal Medicine
DX: H53.2 Diplopia (principal)
CPT/HCPCS: 36415; 83519

== ENCOUNTER 2023-02-08 16:54 | Outpatient (REF) | payer OTHER, MEDICARE, SELFPAY ==
[2023-02-08 18:17] LABS: Prostate Specific Antigen 3.13 ng/mL (<0.05-4.0)
== END 2023-02-08 16:55 | disposition home or self-care (01) ==
LOC: HO.LAB 16:54
PROVIDERS: PCP Internal Medicine; Visit Provider Urology
DX: Z12.5 Encounter for screening for malignant neoplasm of prostate (principal); C61 Malignant neoplasm of prostate
CPT/HCPCS: 36415; 84153

== ENCOUNTER 2023-02-16 10:54 | Outpatient (AMB) | payer OTHER, MEDICARE, SELFPAY ==
--- NOTE | 2023-02-16 10:58 | A.OFFVIS_ITS ---
Intake Intake Visit Reasons: 6M PSA(set) Intake Note: Patient is present for Telephone PSA Results: 02/08/23 PSA: 3.13 ng/mL, Total 2.40 ng/mL Urology Med: Finasteride, Antibiotic Allergy: None Blood Thinner: Eliquis Scraper Tender Required: No Accompanied by: Self / Same As Patient Allergies No Known Allergies Allergy (Verified 02/16/23 10:59) HPI HPI Comments History of Present Illness Details Jn is a pleasant male. He is a patient of Dr. Herrera. He is seen for the following urologic conditions - prostate cancer low volume low-grade d isease PSA remains stable Discussed with patient and Slight rise on PSA Recommend prostate MRI with repeat PSA 4 months Restart finasteride Prostate cancer - grade group 1 low volume disease 12/05 Current therapy finasteride and surveillance Prostate cancer diagnosed by Dr. Cagle Pathology at diagnosis 2 cores. Lawn 3 + 3. No more than 10%. PSA at diagnosis 4.6 Family history prostate cancer Current therapy active surveillance - 2nd opinion obtained at [facility] agreement for course of action PSA - 10/07 3.2, 12/09 2.9, 04/11 2.6, 08/09 2.7 , 02/09 2.4, 08/10 2.4, 03/12 3.1 Therapeutic plan -above [facility] Medical History Prostate cancer Elevated PSA Review of Systems Const Denies chills and Denies fever(s) Card Reports no additional complaints and Denies syncope Resp Denies cough GI Denies abdominal pain and Denies heartburn Reports as per HPI and Denies change in libido Neuro Denies syncope Psych Denies change in libido Endo Denies change in libido Physical Exam Const General: cooperative, healthy appearing, comfortable and no acute distress Orientation/consciousness: patient oriented x3 HEENT Face and sinus: Yes normal facial exam Mouth: moist mucous membranes Neck Neck: Yes normal visual inspection, Yes full ROM and Yes trachea midline Chest Chest palpation & inspection: normal inspection of the chest Resp Effort & Inspection: normal respiratory effort, able to speak in complete sentences and no respiratory distress GI Inspection: Yes normal to inspection Back/Spine/Pelvis Cervical Spine: normal cervical lordosis Thoracic/Lumbar Spine: thoracic and lumbar spine normal to inspection Skin General skin exam: no rashes or lesions noted Neuro General: patient oriented x3, gait normal, tone normal and moves all extremities Extrem General: Yes normal to inspection and Yes capillary refill normal Assessment & Plan Assessment & Plan (1) Prostate cancer: Comment: [id number] Grade group 1 low volume Code(s): C61 - Malignant neoplasm of prostate Plan Four month follow-up PSA with prostate MRI Orders: Orders Prostate Specific Antigen 4 Months C61 - Malignant neoplasm of prostate Blood Urea Nitrogen 4 Months C61 - Malignant neoplasm of prostate Creatinine 4 Months C61 - Malignant neoplasm of prostate MR pelvis wo/w con 4 Months C61 - Malignant neoplasm of prostate Patient Instructions: Imaging studies, laboratory and physical exam results were discussed and reviewed in detail. No major barriers to patient understanding were identified. An opportunity to ask questions regarding the treatment plan was provided. All questions were answered. The patient expressed understanding and agreement with the above treatment plan. The patient is aware they should contact our office by phone for worsening of their current condition or the appearance of new urologic symptoms. Compliance is encouraged with any medications and followup testing that is ordered. It is a privilege to participate in the urologic care of your patient. If you have any questions or concerns regarding treatment for the above conditions, or other urologic issues, please do not hesitate to contact me. The office telephone contact is [phone]. This note is constructed using voice recognition software. While every effort has been made to ensure accuracy nursery attendant errors may have been included. Yours sincerely, Dr Johnny Pearson MD, [facility] - Urology Providers of Expert, Compassionate Care for the Genitourinary System Coding Level of Care Code Est Pt Level 4 (81530) Diagnoses Prostate cancer C61
== END 2023-02-16 11:22 | disposition home or self-care (01) ==
LOC: HO.HUSH 10:54
PROVIDERS: PCP Internal Medicine; Visit Provider Urology
DX: C61 Malignant neoplasm of prostate (principal)
CPT/HCPCS: 99214

== ENCOUNTER → 2023-02-16 10:54 | Outpatient (BNVA) | payer OTHER, MEDICARE, SELFPAY | PROVIDERS: PCP Internal Medicine; Visit Provider Urology ==

== ENCOUNTER 2023-06-14 12:23 | Outpatient (REF) | payer OTHER, MEDICARE, SELFPAY ==
[2023-06-14 14:28] LABS: Prostate Specific Antigen 1.83 ng/mL (<0.05-4.0)
== END 2023-06-14 12:24 | disposition home or self-care (01) ==
LOC: HO.LAB 12:23
PROVIDERS: PCP Internal Medicine; Visit Provider Urology
DX: Z12.5 Encounter for screening for malignant neoplasm of prostate (principal); C61 Malignant neoplasm of prostate
CPT/HCPCS: 36415; 84153

== ENCOUNTER 2023-06-17 11:19 | Outpatient (AMB) | payer OTHER, MEDICARE, SELFPAY ==
--- NOTE | 2023-06-17 11:53 | A.OFFVIS_ITS ---
Intake Intake Visit Reasons: 4m/MRI/PSA([place] 04/04 psa?) Intake Note: Patient presents today for a telehealth follow up on MRI/PSA Meds- Finasteride Allergies to Antibiotic- No Known Allergies Blood Thinner- Apixaban Lead Custodian Required: No Allergies No Known Allergies Allergy (Verified 06/17/23 11:56) Medication List - Last Reconciled 06/17/23 by Johnny Pearson MD albuterol sulfate 90 mcg/actuation 2 puffs inhalation Q4-6H PRN apixaban 5 mg PO BID azithromycin take 500 mg today (day 1), then 250 mg for 4 days (days 2-5) benzonatate 100 mg PO TID PRN finasteride 5 mg PO DAILY 90 days fluticasone propionate 50 mcg/actuation (Flonase Allergy Relief) 2 sprays intranasal DAILY peg 3350-electrolytes 236-22.74-6.74 -5.86 gram 8 mL PO DIRECTED tramadol 50 mg PO Q8H PRN HPI HPI Comments History of Present Illness Details Jn is a pleasant male. He is a patient of Dr. Herrera. He is seen for the following urologic conditions - prostate cancer low volume low-grade d isease Telemedicine Evaluation 15 min Consultation Doximity Logan Video attempted PSA remains stable Prostate MRI shows no disease consistent with PI-RADS 2 or greater Six-month follow-up PSA Prostate cancer - grade group 1 low volume disease 12/05 Current therapy finasteride and surveillance Prostate cancer diagnosed by Dr. Cagle Pathology at diagnosis 2 cores. Subhash 3 + 3. No more than 10%. PSA at diagnosis 4.6 Family history prostate cancer Current therapy active surveillance - 2nd opinion obtained at [facility] agreement for course of action PSA - 10/07 3.2, 12/09 2.9, 04/11 2.6, 08/09 2.7 , 02/09 2.4, 08/10 2.4, 03/12 3.1, 06/11 1.8 Imaging 06/11 prostate MRI. 35 g gland. No susp icious lesion PI-RADS 2 or greater shown on imaging Therapeutic plan -above [facility] Medical History Prostate cancer Elevated PSA Review of Systems Const All systems reviewed & are unremarkable except as noted in HPI and below Reports no additional complaints Resp Reports no additional complaints GI Reports no additional complaints Reports as per HPI Musc Reports no additional complaints Physical Exam Telemedicine evaluation Appropriate responses Regular breathing rate and rhythm HEENT Head: Yes normal to inspection Ears: hearing grossly normal bilaterally Eyes General: appearance normal, both eyes and all related structures Neck Neck: Yes normal visual inspection Chest Chest palpation & inspection: normal inspection of the chest Resp Effort & Inspection: normal respiratory effort and able to speak in complete sentences Assessment & Plan Assessment & Plan (1) Prostate cancer: Comment: 11/201617 Grade group 1 low volume Code(s): C61 - Malignant neoplasm of prostate Plan Six-month follow-up Orders: Orders Prostate Specific Antigen 6 Months C61 - Malignant neoplasm of prostate Medications: Refilled finasteride 5 mg PO DAILY 90 tabs 1RF 90 days C61 - Malignant neoplasm of prostate, N13.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 No major barriers to patient understanding were identified. An opportunity to ask questions regarding the treatment plan was provided. All questions were answered. The patient expressed understanding and agreement with the above treatment plan. The patient is aware they should contact our office by phone for worsening of their current condition or the appearance of new urologic symptoms. Compliance is encouraged with any medications and followup testing that is ordered. It is a privilege to participate in the urologic care of your patient. If you have any questions or concerns regarding treatment for the above conditions, or other urologic issues, please do not hesitate to contact me. The office telephone contact is [phone]. This note is constructed using voice recognition software. While every effort has been made to ensure accuracy business services analyst errors may have been included. Yours sincerely, Dr Johnny Pearson MD, [facility] - Urology Providers of Expert, Compassionate Care for the Genitourinary System Telehealth Telehealth Location of provider rendering services: practice address Location of patient: address on file Patient Identification confirmed using: Name, : Yes Telehealth method: video Patient verbally consented to treatment: Yes Patient verbally consented to billing insurance company: Yes Patient informed of any privacy concerns related to visit: Yes Coding Level of Care Code Tele Est Pt Level 3 (70006) Diagnoses Prostate cancer C61
== END 2023-06-17 12:20 | disposition home or self-care (01) ==
LOC: HO.HUSH 11:31
PROVIDERS: PCP Internal Medicine; Visit Provider Urology
DX: C61 Malignant neoplasm of prostate (principal)
CPT/HCPCS: 99213

== ENCOUNTER → 2023-06-17 11:19 | Outpatient (BNVA) | payer OTHER, MEDICARE, SELFPAY | PROVIDERS: PCP Internal Medicine; Visit Provider Urology ==

== ENCOUNTER 2023-08-12 10:18 | Emergency (ER) | payer OTHER, SELFPAY ==
[2023-08-12 11:04] VITALS: BP 124/79; PULSE 63; RESP 18; TEMP 35.9; O2SAT 96; BMI 24.5
--- NOTE | 2023-08-12 11:09 | ED_ITS ---
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 Patient states that while he was at work a small chain fell off a door and hit him in the right cheek. Patient denies loss of consciousness. He is feeling well, denies any dizziness, changes in vision, headaches, blurred vision, chest pain, shortness breath, abdominal pain, nausea, vomiting or diarrhea. He is unsure when his last tetanus was. No other complaints or concerns at this time. MD complaint: laceration Onset (ago): day(s) Tetanus up to date: unsure Location: face Severity: mild Relieving factors: none Exacerbating factors: none Context: none Associated symptoms: denies other symptoms Treatments prior to arrival: none Related Data Home Medications ?Medication ?Instructions ?Recorded ?Confirmed apixaban 5 mg tablet 5 mg PO BID 06/04/20 06/17/23 peg 3350-electrolytes 236 8 ml PO DIRECTED 06/04/20 06/17/23 gram-22.74 gram-6.74 gram-5.86 gram solution Previous Rx's ?Medication ?Instructions ?Recorded tramadol 50 mg tablet 50 mg PO Q8H PRN pain #14 tabs 03/03/21 albuterol sulfate 90 mcg/actuation 2 puff inhalation Q4-6H PRN 06/25/21 aerosol inhaler shortness of breath or wheezing #6.7 grams azithromycin 250 mg tablet See Rx Instructions PO .COMPLEX #6 06/25/21 tabs benzonatate 100 mg capsule 100 mg PO TID PRN cough #14 caps 06/25/21 fluticasone propionate 50 2 spray intranasal DAILY #16 grams 06/25/21 mcg/actuation nasal spray,suspension (Flonase Allergy Relief) finasteride 5 mg tablet 5 mg PO DAILY 90 days #90 tabs 06/17/23 Allergies Allergy/AdvReac Type Severity Reaction Status Date / Time No Known Allergies Allergy Verified 08/12/23 11:06 Review of Systems Review of Systems: Yes all other systems are reviewed and are negative Constitutional: Constitutional: Reports as per [facility] Past Medical History Attestation statement: The following information was validated with the patient. Medical History Prostate cancer Elevated PSA Social History Social History Advance Directives: No Physical Exam Vital Signs: Vital Signs: Last Vital Signs Temp 96.7 F L 08/12/23 11:41 Pulse 63 08/12/23 11:41 Resp 18 08/12/23 11:41 BP 124/79 08/12/23 11:41 Pulse Ox 96 08/12/23 11:41 O2 Del Method Room Air 08/12/23 11:41 BMI result Body Mass Index 24.5 Const: General: cooperative, comfortable and no acute distress Orientation/consciousness: patient oriented x3 Limitations: no limitations HEENT: Head: Yes normal to inspection, Yes normocephalic and Yes atraumatic Ears: hearing grossly normal bilaterally General nose exam: Normal external nose present Face and sinus: Yes normal facial exam Mouth: Normal oral and palatal mucosa present, oropharynx normal and moist mucous membranes Throat: Yes posterior oropharynx normal Eyes: General: appearance normal, both eyes and all related structures Eyelids: Yes eyelids normal Conjunctivae: conjunctivae normal Sclerae: sclerae normal Pupils: Equal, round and reactive pupils present EOM: EOMs intact bilaterally Neck: Neck: Yes normal visual inspection, Yes full ROM and Yes no lymphadenopathy Lymphatic: no lymphadenopathy noted Chest: Chest palpation & inspection: normal inspection of the chest Resp: Effort & Inspection: normal respiratory effort and able to speak in complete sentences Auscultation: clear to auscultation bilaterally, no crackles, no rales, no rhonchi and no wheezes Cardio: Rate: regular rate Rhythm: regular rhythm Heart sounds: S1 norm al heart sound present and S2 normal heart sound present GI: Inspection: Yes normal to inspection Skin: Other: 2.5cm superficial laceration noted to ri ght side of face, no active bleeding General skin exam: no rashes or lesions noted Trauma: no lacerations or abrasions Wounds: no wounds Neuro: General: patient oriented x3 and moves all extremities Cranial nerves: Yes Equal, round and reactive pupils present Extrem: General: Yes normal to inspection Right upper extremity: normal to inspection Left upper extremity: normal to inspection Right lower extremity: normal to inspection Left lower extremity: normal to inspection Medications Administered Discontinued Medications Generic Name Dose Route Start Last Admin Trade Name Freq PRN Reason Stop Dose Admin Diphtheria/Tetanus/Acell Pertussis 0.5 ml 08/12/23 11:08 08/12/23 11:36 Diphth,Pertus(Acell),Tet Adult 0.5 Ml Syringe IM 08/12/23 11:09 0.5 ml .ONCE ONE Administration Medical Decision Making Medical Decision Making MDM Narrative: This is a 78-year-old male, with a history of DVT on Eliquis, who presents emergency department with complaints of right facial laceration since today. Patient is oriented x4. He did not lose consciousness. He has headaches. Wound appears to be superficial, it was cleansed, and closed with Dermabond. Patient tolerated procedure well, see procedure note. Patient did not lose consciousness, he has no dizziness, lightheadedness, blurred vision, therefore CT head was not indicated at this time. Given strict return precautions. He understands and agrees with plan. Updated tetanus. Stable for discharge Differential Diagnosis Differential Diagnoses: The differential diagnosis associated with the pre sentation includes Laceration, abrasion, contusion, puncture wound Procedures Laceration Laceration 1: Site: face Side (If applicable): right Size (cm): 2.5 Description: linear Depth: simple, single layer Skin layer closed with: other (Dermabond) Discharge Plan Discharge Clinical Impression: Abrasion of face Qualifiers: Encounter type: initial encounter Qualified Code(s): S00.81XA - Abrasion of other part of head, initial encounter Patient Disposition: Home, Self-Care Instructions: Abrasion (ED) Additional Instructions: You were seen in the emergency department after cutting your face on a metal chain at work. This wound was able to be closed with skin glue. Please allow wound to heal on its own with the skin glue and Steri-Strips. Do not pick at wound. Do not submerge wound, you may use gentle soap and water, pat dry. No swimming until this heals. If any new or worsening symptoms occur including but not limited to severe headache, dizziness, increased redness or swelling to your face, please return for re-evaluation. Prescriptions: No Action tramadol 50 mg tablet 50 mg PO Q8H PRN (Reason: pain) Qty: 14 0RF Rx Instructions: May partially fill upon patient request azithromycin 250 mg tablet See Rx Instructions .ROUTE .COMPLEX Qty: 6 0RF Rx Instructions: take 500 mg today (day 1), then 250 mg for 4 days (days 2-5) albuterol sulfate 90 mcg/actuation HFA aerosol inhaler 2 puff inhalation Q4-6H PRN (Reason: shortness of breath or wheezing) Qty: 6.7 0RF fluticasone propionate [Flonase Allergy Relief] 50 mcg/actuation spray,suspension 2 spray intranasal DAILY Qty: 16 0RF Rx Instructions: administer into each nostril benzonatate 100 mg capsule 100 mg PO TID PRN (Reason: cough) Qty: 14 0RF Eliquis 5 mg tablet 5 mg PO BID peg 3350-electrolytes 236-22.74-6.74 -5.86 gram recon soln 8 ml PO DIRECTED finasteride 5 mg tablet 5 mg PO DAILY 90 Days Qty: 90 1RF Interventions: ED Discharge Assessment Last Done: 08/12/23 11:41 Discharge Date/Time: 08/12/23 11:42 Print Language: Setswana
[2023-08-12] MEDS: Diphth,Pertus(ACell),Tet Adult 0.5 ML SYRINGE IM (11:36)
[2023-08-12 11:41] VITALS: BP 124/79; PULSE 63; RESP 18; TEMP 35.9; O2SAT 96
== END 2023-08-12 11:42 | disposition home or self-care (01) ==
PROVIDERS: Emergency Provider Emergency Medicine Emergency Medical Services; PCP Internal Medicine
DX: S01.411A Laceration without foreign body of right cheek and temporomandibular area, initial encounter (principal); W45.8XXA Other foreign body or object entering through skin, initial encounter; W22.8XXA Striking against or struck by other objects, initial encounter; Y93.9 Activity, unspecified; Y92.9 Unspecified place or not applicable; Y99.0 Civilian activity done for income or pay; Z23 Encounter for immunization
CPT/HCPCS: 12001; 90471; 90715; 99282; 99284

== ENCOUNTER 2023-11-15 13:31 | Inpatient (IN) | payer OTHER, MEDICARE, SELFPAY ==
[2023-11-15] VITALS (7 sets, daily range): BP systolic 114–134; BP diastolic 61–82; PULSE 52–75; RESP 12–24; TEMP 36.6–37.1; O2SAT 95–98; BMI 23.5
--- NOTE | ~2023-11-15 | FL_ITS ---
EXAMINATION: FLUOROSCOPY GUIDANCE FOR ORIF LEFT HIP CLINICAL INFORMATION: Fracture left hip. COMPARISON: CT left hip November 15, 2023. TECHNIQUE: C-arm imaging. DOSE-14.5 mGy DAP-0.251 mGym2 TIME-0.5 min IMAGES-4 Findings/ FL/FL guidance in OR impression: Intraoperative imaging.. Placement of compression screw transfixing intertrochanteric fracture of the hip. Electronically signed by: John Salas MD 11/18/2023 09:21 PM EDT
--- NOTE | ~2023-11-15 | CT_ITS ---
EXAMINATION: CT HEAD WITHOUT CONTRAST CLINICAL INFORMATION: Head pain after falling COMPARISON: None available. TECHNIQUE: Contiguous axial imaging was performed from the skull base to vertex without intravenous administration of contrast. This CT examination was performed using dose optimization techniques as appropriate, variously including the following: *Automated exposure control *Adjustment of mA and/or kV according to patient size (this includes techniques or standardized protocols for targeted exams where dose is matched to indication/reason for exam; i.e. extremities or head) *Use of iterative reconstruction technique DLP: 633 mGy-cm FINDINGS: Very subtle tiny areas of high density are seen, midline near the vertex and falx. (). It is uncertain whether this reflects petechial hemorrhage but I suspect this most likely reflects perforating vessels. I would recommend an MRI for further evaluation. If no intra or extra-axial fluid collection, mass, or mass effect. Sulci and ventricles are slightly prominent and there is mild deep white matter clearances. Calvarium is intact. No fracture seen. CT/CT head/brain wo IV con IMPRESSION: Probable dense perforating vessels near the vertex and falx. Petechial bleed is considered less likely. MRI advised for further evaluation. Electronically signed by: Jeremi Trejo MD 11/15/2023 04:29 PM EDT
--- NOTE | ~2023-11-15 | CT_ITS ---
EXAMINATION: CT CERVICAL SPINE WITHOUT CONTRAST CLINICAL INFORMATION: Pain after falling COMPARISON: None available. TECHNIQUE: Thin section axial images with sagittal and coronal reformats. This CT examination was performed using dose optimization techniques as appropriate, variously including the following: *Automated exposure control *Adjustment of mA and/or kV according to patient size (this includes techniques or standardized protocols for targeted exams where dose is matched to indication/reason for exam; i.e. extremities or head) *Use of iterative reconstruction technique DLP: 276 mGy-cm FINDINGS: There is advanced disc space narrowing C5-6 and C6-7 with anterior and posterior spurring. No fracture or destructive lesion. No significant encroachment on the spinal canal. Prevertebral soft tissues are normal. CT/CT cervical spine wo IV con IMPRESSION: Degenerative changes observed without acute abnormalities noted. Fleischner guidelines were followed. Electronically signed by: Jeremi Trejo MD 11/15/2023 04:25 PM EDT
--- NOTE | ~2023-11-15 | MR_ITS ---
EXAMINATION: MR BRAIN WITHOUT CONTRAST CLINICAL INFORMATION: Evaluate for intracranial hemorrhage COMPARISON: Same day CT head without contrast TECHNIQUE: Multiplanar multisequence MR imaging of the brain was obtained without intravenous contrast. FINDINGS: There is no acute infarct on diffusion-weighted imaging. There is no intracranial hemorrhage on iron-sensitive imaging. No extra-axial collection or mass effect/herniation. Scattered periventricular and deep white matter T2 FLAIR hyperintensities consistent with mild underlying microangiopathy. No hydrocephalus. Mild generalized cerebral volume loss with commensurate sulcal and ventricular prominence. The major flow voids at the skull base are preserved. The midline structures are normal. The cerebellar tonsils are normally positioned. The craniocervical junction is normal. Marrow signal is within normal limits. The visualized soft tissues are without significant abnormality. Small bilateral mastoid fluid and mild ethmoid sinus mucosal thickening. MR/MR head/brain wo con IMPRESSION: No evidence of acute intracranial hemorrhage or other acute intracranial abnormality. Electronically signed by: Blue Alvarado MD 11/15/2023 08:46 PM EDT
--- NOTE | ~2023-11-15 | CT_ITS ---
EXAMINATION: CT HIP WITHOUT CONTRAST, LEFT CLINICAL INFORMATION: Fall pain COMPARISON: None available. TECHNIQUE: Multidetector volumetric imaging was obtained through the left hip without contrast material. Multiplanar reformatted images were submitted in coronal and sagittal planes. This CT examination was performed using dose optimization techniques as appropriate, variously including the following: *Automated exposure control *Adjustment of mA and/or kV according to patient size (this includes techniques or standardized protocols for targeted exams where dose is matched to indication/reason for exam; i.e. extremities or head) *Use of iterative reconstruction technique DLP: 1098 mGy-cm FINDINGS: There is a moderate to severely comminuted displaced intertrochanteric fracture of the femur. The lesser trochanteric fragment is displaced medially by 8 mm. A greater tuberosity fragment is displaced posteriorly 4 mm. No surrounding soft tissue changes compatible with hemorrhage/hematoma related to the fracture. 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 Additional findings: There is bridging osteophytes along the anterior aspect of the partially visualized left sacroiliac joint. Mild degenerative changes of the symphysis pubis. Small left fat-containing inguinal hernia. CT/CT hip LT wo IV con IMPRESSION: Moderate to severely comminuted displaced intertrochanteric left femur fracture. Electronically signed by: Abimael Becerra MD 11/15/2023 04:19 PM EDT
--- NOTE | ~2023-11-15 | XR_ITS ---
EXAMINATION: XR PELVIS CLINICAL INFORMATION: Left hip pain. Fracture COMPARISON: 11/15/2023 TECHNIQUE: AP view of the pelvis. FINDINGS: Previously noted left hip intertrochanteric fracture, with involvement of the greater and lesser trochanters is again observed. The left hip itself is intact and not dislocated. Pelvis and right hip intact. XR/XR pelvis 1-2V IMPRESSION: Stable left hip fracture. Pelvis intact. Electronically signed by: Jeremi Trejo MD 11/16/2023 08:09 AM EDT
--- NOTE | ~2023-11-15 | XR_ITS ---
EXAMINATION: XR CHEST CLINICAL INFORMATION: Fall COMPARISON: Chest radiograph 06/25/2021 TECHNIQUE: Frontal view of the chest was obtained. FINDINGS: The lungs are hypoexpanded. Mild bilateral interstitial thickening. No focal consolidation. No pleural effusions or pneumothorax. 1.8 cm rounded opacity at the right lower paratracheal region. The cardiomediastinal silhouette is mildly prominent likely exaggerated by low lung volumes. Degenerative changes of the thoracic spine and bilateral acromioclavicular joints. No acute osseous abnormality. XR/XR chest 1V IMPRESSION: Mild bilateral interstitial thickening which can be seen with reactive airways disease, atypical/viral infection or mild edema. 1.8 cm rounded opacity in the right lower paratracheal region. Unclear if this represents a lymph node. Correlation with CT chest can be considered as clinically dictated. Electronically signed by: Stewart Bergeron MD 11/15/2023 04:07 PM EDT
[2023-11-15 14:08] LABS: MANUAL DIFF FLAG NO
[2023-11-15 14:13] LABS: Basophils Percent Auto 0.1 % (0-2); Eosinophils Absolute Auto 0.5 X10*3/uL (0.0-0.4); Eosinophils Percent Auto 7.1 % (0-4); Hematocrit 41.5 % (42.0-52.0); Hemoglobin 14.6 g/dl (14.0-18.0); Imm Gran Abs Auto 0.02 X10*3/uL (0.00-0.03); Imm Gran Pct Auto 0.3 % (0.0-0.4); Lymphocytes Absolute Auto 0.9 X10*3/uL (1.2-4.9); Lymphocytes Percent Auto 12.6 % (20-40); Mean Corpuscular HGB Conc 35.2 g/dl (31.0-36.0); Mean Corpuscular Hemoglobin 31.8 pg (27.0-33.0); Mean Corpuscular Volume 90.4 fL (80.0-98.0); Mean Platelet Volume 10.2 fL (9.4-12.4); Monocytes Absolute Auto 0.6 X10*3/uL (0.1-1.2); Monocytes Percent Auto 8.8 % (2-11); Neutrophils Absolute Auto 4.9 x10*3/uL (2.0-8.3); Neutrophils Percent Auto 71.1 % (45-73); Platelet Count 199 X10*3/uL (160-400); Red Blood Count 4.59 X10*6/uL (4.60-5.80); White Blood Count 6.9 X10*3/uL (4.8-10.8)
[2023-11-15 14:23] LABS: Alanine Aminotransferase 20 U/L (0-40); Albumin Level 3.6 g/dL (3.5-5.0); Alkaline Phosphatase 115 U/L (39-117); Anion Gap 9 (12-20); Aspartate Amino Transferase 22 U/L (5-37); Bilirubin Total 0.3 mg/dL (0.0-1.0); Blood Urea Nitrogen 17 mg/dL (9-16); Calcium 8.7 mg/dL (8.4-10.2); Carbon Dioxide 29 mmol/L (22-29); Chloride 106 mmol/L (96-108); Creatinine Clr Calc Pharmacy 49.4; Estimated Glomerular Filt Rate > 60; Glucose Random 201 mg/dL (60-115); Potassium 4.4 mmol/L (3.3-5.1); Sodium 140 mmol/L (135-145); Total Protein 6.3 g/dL (6.5-8.0)
--- NOTE | 2023-11-15 14:52 | ED_ITS ---
HPI - Fall General Chief Complaint: Fall Stated Complaint: MECH FALL,LT HIP PAIN,-HS,+THIN PER EMS Time Seen by Provider: 11/15/23 14:44 Source: patient and EMS Mode of arrival: EMS Limitations: no limitations History of Present Illness ED Provider: Dr. Margoth Paez HPI Narrative: Patient comes to the emergency room complaining of a fall. Patient states that he was at work, patient was trying to open a drawer, as he was opening it, he slipped backwards and landed on the right side of his hip. Patient states that he was not able to get up due to localized pain. Patient takes Eliquis for history of DVTs. Patient states that he does not believe he hit his head or lost consciousness. Related Data Home Medications ?Medication ?Instructions ?Recorded ?Confirmed apixaban 5 mg tablet 5 mg PO BID 06/04/20 06/17/23 peg 3350-electrolytes 236 8 ml PO DIRECTED 06/04/20 06/17/23 gram-22.74 gram-6.74 gram-5.86 gram solution Previous Rx's ?Medication ?Instructions ?Recorded tramadol 50 mg tablet 50 mg PO Q8H PRN pain #14 tabs 03/03/21 albuterol sulfate 90 mcg/actuation 2 puff inhalation Q4-6H PRN 06/25/21 aerosol inhaler shortness of breath or wheezing #6.7 grams azithromycin 250 mg tablet See Rx Instructions PO .COMPLEX #6 06/25/21 tabs benzonatate 100 mg capsule 100 mg PO TID PRN cough #14 caps 06/25/21 fluticasone propionate 50 2 spray intranasal DAILY #16 grams 06/25/21 mcg/actuation nasal spray,suspension (Flonase Allergy Relief) finasteride 5 mg tablet 5 mg PO DAILY 90 days #90 tabs 06/17/23 Allergies Allergy/AdvReac Type Severity Reaction Status Date / Time No Known Allergies Allergy Verified 11/15/23 13:49 Review of Systems 2 Review of Systems: Constitutional : No Weight loss, No Fever, No Chills, No Night Sweats, No Fatigue, No Malaise ENT/Mouth : No Hearing loss, No Ear Pain, No Nasal Congestion, No Sinus Pain, No Hoarseness, No sore throat, No Rhinorrhea, No Swallowing Difficulty Eyes: No Eye Pain, No Swelling, No Redness, No Foreign Body, No Discharge, No Vision Changes Cardiovascular : No Chest Pain, No SOB, No Dyspnea on Exertion, No Orthopnea, No Edema, No Palpitations Respiratory : No Cough, No Sputum, No Wheezing, No Smoke Exposure, No Dyspnea Gastrointestinal : No Nausea, No Vomiting, No Diarrhea, No Constipation, No abdominal Pain, No Hematochezia, No Melena Genitourinary : no irregular bleeding, No Dysuria, No Urinary Frequency, No Hematuria, No Urinary Incontinence, No Urgency, No Flank Pain, No Urinary Flow Changes, No Hesitancy Musculoskeletal : Complaining of left hip pain No Myalgias, No Joint Swelling Skin : No Skin Lesions, No rash Neuro : No Weakness, No Numbness, No Paresthesias, No Loss of Consciousness, No Dizziness, No Headache Psych : No Anxiety/Panic, No Depression, No SI/HI/AH/VH, No Social Issues, Heme/Lymph: No Bruising, No Bleeding,No Lymphadenopathy Endocrine : No Polyuria, No Polydipsia, No Temperature Intolerance [facility] Past Medical History Medical History (Updated 11/15/23 @ 16:48 by Margoth Paez MD) Chronic anticoagulation Left leg DVT Prostate cancer Elevated PSA Social History Social History Smoked in Last 30 Days: No Use of substances other than those prescribed or required for medical reasons: No Advance Directives: Yes Advance Directives Information Provided: Yes Advance Directives on File: No Do you have a plan to hurt others: No Plan Physical Exam 2 Vital Signs: Vital Signs: Last Vital Signs Temp 98.8 F 11/15/23 16:00 Pulse 69 11/15/23 16:00 Resp 16 11/15/23 16:00 BP 128/65 11/15/23 16:00 Pulse Ox 97 11/15/23 16:00 O2 Del Method Room Air 11/15/23 16:00 BMI result Body Mass Index 23.5 Const: Other: Appearance: Alert. Oriented X3. No acute distress. Eyes: Pupils equal, round and reactive to light. ENT: Pharynx normal. Neck: Normal inspection. Neck supple. No lymph nodes noted. No crepitus CVS: Normal heart rate and rhythm. Pulses normal. Normal S1 and S2 Respiratory: No respiratory distress. Breath sounds normal. No Wheezing. No rales Abdomen: Soft and nontender. No rigidity. No distention. Skin: Skin warm and dry. Normal skin color. Normal skin turgor. Extremities: No lower extremity edema. No Lacerations. No Rash as an externally rotated left lower extremity, patient unable to move his leg due to pain. Neuro: Oriented X 3. No motor deficit. No sensory deficit. Moving all extremities. No slurred speech. CN 2 through 12 grossly intact Psych: calm, cooperative, normal affect Course Course Course Narrative: -giving IV morphine -labs and imaging pending Medications Administered Discontinued Medications Generic Name Dose Route Start Last Admin Trade Name Nuvia PRN Reason Stop Dose Admin Morphine Sulfate 4 mg 11/15/23 14:44 11/15/23 15:00 Morphine Sulfate 4 Mg/Ml Cartridge IVPUSH 11/15/23 14:45 4 mg ONCE ONE Administration Protocol Medical Decision Making Medical Decision Making [facility] Narrative: My interpretation of labs: Hematology and chemistry did not show any significant abnormality. LFTs within normal limits -my interpretation of CT scan of the head: No acute intracranial abnormality. -my interpretation of CT scan of the left hip: Comminuted displaced fracture of the femur -I discussed the patient with orthopedics, to be admitted by medicine, Eliis to be held -I discussed the patient with Dr. Koenig, patient being admitted -The radiology report for the head CT was read as probable dense perforating vessels near the vertex and falls, petechial bleed is considered but less likely. Patient did not hit his head, no headache. Logical deficits Differential Diagnosis Differential Diagnoses: The differential diagnosis associated with the presentation includes (Hip fracture, contusion, dislocation) Admission/Observation Consideration of admission/observation: Escalation of care including admission/observation considered Consult Healthcare Provider Management of the patient was discussed with: Hospitalist and Water Treatment Plant Engineer Lab Data [facility] Lab Attestation statement: I reviewed the patient's lab results. 11/15/23 14:04 11/15/23 14:04 Labs: Lab Results 11/15/23 Range/Units 14:04 WBC 6.9 (4.8-10.8) X10*3/uL RBC 4.59 L (4.60-5.80) X10*6/uL Hgb 14.6 (14.0-18.0) g/dl Hct 41.5 L (42.0-52.0) % MCV 90.4 (80.0-98.0) fL MCH 31.8 (27.0-33.0) pg MCHC 35.2 (31.0-36.0) g/dl RDW 13.0 (11.0-16.0) % Plt Count 199 (160-400) X10*3/uL MPV 10.2 (9.4-12.4) fL Immature Gran % (Auto) 0.3 (0.0-0.4) % Neut % (Auto) 71.1 (45-73) % Lymph % (Auto) 12.6 L (20-40) % [place] % (Auto) 8.8 (2-11) % Eos % (Auto) 7.1 H (0-4) % Baso % (Auto) 0.1 (0-2) % Lymph # (Auto) 0.9 L (1.2-4.9) X10*3/uL [place] # (Auto) 0.6 (0.1-1.2) X10*3/uL Eos # (Auto) 0.5 H (0.0-0.4) X10*3/uL Baso # (Auto) 0.0 (0.0-0.2) X10*3/uL Abs Immat Gran (auto) 0.02 (0.00-0.03) X10*3/uL Absolute Neuts (auto) 4.9 (2.0-8.3) x10*3/uL Absolute Nucleated RBC 0.000 (0.0-0.012) X10*3/uL Nucleated RBC % (auto) 0.0 (0.0-0.2) /100WBC Sodium 140 (135-145) mmol/L Potassium 4.4 (3.3-5.1) mmol/L Chloride 106 (96-108) mmol/L Carbon Dioxide 29 (22-29) mmol/L Anion Gap 9 L (12-20) BUN 17 H (9-16) mg/dL Creatinine 1.17 (0.5-1.4) mg/dL Estim Creat Clear Calc 49.4 Estimated GFR > 60 Random Glucose 201 H (60-115) mg/dL Calcium 8.7 (8.4-10.2) mg/dL Total Bilirubin 0.3 (0.0-1.0) mg/dL AST 22 (5-37) U/L ALT 20 (0-40) U/L Alkaline Phosphatase 115 (39-117) U/L Total Protein 6.3 L (6.5-8.0) g/dL Albumin 3.6 (3.5-5.0) g/dL Independent Interpretation I performed an independent interpretation of an: CT Scan Radiology Impression Discussion of test interpretation with radiology: I have reviewed the radiologist's reading. Radiologist Impression: There is advanced disc space narrowing C5-6 and C6-7 with anterior and posterior spurring. No fracture or destructive lesion. No significant encroachment on the spinal canal. Prevertebral soft tissues are normal. CT/CT cervical spine wo IV con IMPRESSION: Degenerative changes observed without acute abnormalities noted. Fleischner guidelines were followed. Probable dense perforating vessels near the vertex and falx. Petechial bleed is considered less likely. MRI advised for further evaluation. FINDINGS: There is a moderate to severely comminuted displaced intertrochanteric fracture of the femur. The lesser trochanteric fragment is displaced medially by 8 mm. A greater tuberosity fragment is displaced posteriorly 4 mm. No surrounding soft tissue changes compatible with hemorrhage/hematoma related to the fracture. 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 Additional findings: There is bridging osteophytes along the anterior aspect of the partially visualized left sacroiliac joint. Mild degenerative changes of the symphysis pubis. Small left fat-containing inguinal hernia. CT/CT hip LT wo IV con IMPRESSION: Moderate to severely comminuted displaced intertrochanteric left femur fracture. Independent Historian Clinical information obtained from an independent historian. History obtained from or confirmed by: Spouse Critical Care Time Critical Care Time Critical Care Time: Yes Total Critical Care Time: 60 Attestation: I have personally provided critical care time. Time includes review of lab data, radiology results, discussion with consultants, and monitoring for potential decompensation. Intervention performed as documented. Discharge Plan Discharge Clinical Impression: Closed intertrochanteric fracture of left femur Patient Disposition: Admitted As Inpatient Prescriptions: No Action tramadol 50 mg tablet 50 mg PO Q8H PRN (Reason: pain) Qty: 14 0RF Rx Instructions: May partially fill upon patient request azithromycin 250 mg tablet See Rx Instructions .ROUTE .COMPLEX Qty: 6 0RF Rx Instructions: take 500 mg today (day 1), then 250 mg for 4 days (days 2-5) albuterol sulfate 90 mcg/actuation HFA aerosol inhaler 2 puff inhalation Q4-6H PRN (Reason: shortness of breath or wheezing) Qty: 6.7 0RF fluticasone propionate [Flonase Allergy Relief] 50 mcg/actuation spray,suspension 2 spray intranasal DAILY Qty: 16 0RF Rx Instructions: administer into each nostril benzonatate 100 mg capsule 100 mg PO TID PRN (Reason: cough) Qty: 14 0RF Eliquis 5 mg tablet 5 mg PO BID peg 3350-electrolytes 236-22.74-6.74 -5.86 gram recon soln 8 ml PO DIRECTED finasteride 5 mg tablet 5 mg PO DAILY 90 Days Qty: 90 1RF Print Language: Italian
[2023-11-15] MEDS: Morphine Sulfate 4 MG/ML CARTRIDGE IVPUSH ×2 (15:00→17:41)
[2023-11-15 17:17] LABS: INTERNATIONAL NORM RATIO 1.2 (0.9-1.1)
[2023-11-15 17:20] LABS: Partial Thromboplastin Time 27.1 SEC (26.0-36.8)
--- NOTE | 2023-11-15 17:41 | P.HPHOSP_ITS ---
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 He sustained a moderate to severely comminuted displaced intertrochanteric fracture of the femur. with pain of 6/10 now, worst with movment Review of Systems 2 Review of Systems: left hip pain with movment [facility] Medical History Chronic anticoagulation Left leg DVT Prostate cancer Elevated PSA Social History Household Members: Family and Children Housing: House Do you presently have visiting nurse or other home services: No Patient Tobacco Use Status: Never used Tobacco Advance Directives Date on File: 11/16/23 service: No Meds Allergies Allergy/AdvReac Type Severity Reaction Status Date / Time No Known Allergies Allergy Verified 11/15/23 13:49 Home Medications ?Medication ?Instructions ?Recorded ?Confirmed ?Last Taken ?Type apixaban 5 mg tablet 5 mg PO BID 06/04/20 11/15/23 11/15/23 08:00 History calcium carbonate (Calcium 600) 600 mg PO BID 11/15/23 11/15/23 11/15/23 08:00 History memantine 7 mg capsule 7 mg PO BEDTIME 11/15/23 11/15/23 11/14/23 History sprinkle,extended release 24hr Physical Exam 2 Vital Signs and Narrative: Vital Signs: Last Vital Signs Temp 98.8 F 11/15/23 16:00 Pulse 69 11/15/23 17:40 Resp 18 11/15/23 17:40 BP 134/67 11/15/23 17:40 Pulse Ox 97 11/15/23 17:40 O2 Del Method Room Air 11/15/23 17:40 BMI result Body Mass Index 23.5 Const: Other: General: AO X 3, no acute distress Resp: CTA bilateral CVS: S1,S2,RRR GI: +BS, NT, no distention Skin: No rash MSK: external rotation of the LLE, and shortening of the leg Neuro: motor grossly intact Psych: appropriate affect Results Labs 11/16/23 05:05 11/16/23 05:05 Labs: Laboratory Results - last 24 hr 11/15/23 11/15/23 14:04 17:04 MCV 90.4 MCH 31.8 MCHC 35.2 RDW 13.0 Plt Count 199 MPV 10.2 Immature Gran % (Auto) 0.3 Neut % (Auto) 71.1 Lymph % (Auto) 12.6 L [place] % (Auto) 8.8 Eos % (Auto) 7.1 H Baso % (Auto) 0.1 Lymph # (Auto) 0.9 L [place] # (Auto) 0.6 Eos # (Auto) 0.5 H Baso # (Auto) 0.0 Abs Immat Gran (auto) 0.02 Absolute Neuts (auto) 4.9 Absolute Nucleated RBC 0.000 Nucleated RBC % (auto) 0.0 PT 14.0 H INR 1.2 H APTT 27.1 Anion Gap 9 L Estim Creat Clear Calc 49.4 Estimated GFR > 60 Random Glucose 201 H Calcium 8.7 Total Bilirubin 0.3 AST 22 ALT 20 Alkaline Phosphatase 115 Total Protein 6.3 L Albumin 3.6 Imaging Radiologist's Impressions: Impressions Head CT 11/15/23 14:45 IMPRESSION: Probable dense perforating vessels near the vertex and falx. Petechial bleed is considered less likely. MRI advised for further evaluation. Electronically signed by: Jeremi Trejo MD 11/15/2023 04:29 PM EDT RP Hip CT 11/15/23 14:45 IMPRESSION: Moderate to severely comminuted displaced intertrochanteric left femur fracture. Electronically signed by: Abimael Becerra MD 11/15/2023 04:19 PM EDT RP Cervical Spine CT 11/15/23 15:13 IMPRESSION: Degenerative changes observed without acute abnormalities noted. Fleischner guidelines were followed. Electronically signed by: Jeremi Trejo MD 11/15/2023 04:25 PM EDT RP Chest X-Ray 11/15/23 15:24 IMPRESSION: Mild bilateral interstitial thickening which can be seen with reactive airways disease, atypical/viral infection or mild edema. 1.8 cm rounded opacity in the right lower paratracheal region. Unclear if this represents a lymph node. Correlation with CT chest can be considered as clinically dictated. Electronically signed by: Stewart Bergeron MD 11/15/2023 04:07 PM EDT RP Assessment and Plan (1) Closed intertrochanteric fracture of left femur: Status: Acute Plan 78/m with h/o DVT on xarelto here with accidental fall resulting in left hip fracture Left hip fracture d/t accidental fall -ortho consult -morphine for pain -hold eliquis h/o DVT--xarelto -levenox for mild intermittent asthma--inhaler Probable dense perforating vessels near the vertex and falx. Petechial bleed is considered less likely. MRI advised for further evaluation. -MRI of brain dvt compression device, resume xarelto after surgery full code admission for at least 2 midnights for management fall with left hip fracture Quality Stroke Does the patient have a stroke diagnosis?: No VTE Prior VTE?: No VTE Risk Level:: Surgical - very high VTE Device Contraindication: Treatment Not Indicated VTE Drug Contraindication: N/A - Med Ordered
--- NOTE | 2023-11-15 19:36 | PHA.MEDREC ---
Addendum entered by Cornelius Matos [facility] 11/15/23 19:40: med rec reviewed Original Note: Pharmacy Consult ? Medication Reconciliation Pharmacy has completed the medication reconciliation. Confirmed medications with patient and then came in with some family and she was able to help confirm more. The patient confirmed his Eliquis 5mg tab BID, Finasteride 5mg tab once daily in the AM and his confirmed his Memantine 7mg at bedtime and a Calcium 600mg tab BID. The patient states he took his medicine this morning.
--- NOTE | 2023-11-15 19:36 | PC.NURSE ---
pt to MRI at this time.
[2023-11-15 21:11] LABS: Glucose, Whole Blood 150 mg/dL (60-115)
[2023-11-15] MEDS: Morphine Sulfate 4 MG/ML CARTRIDGE 2 MG IVPUSH (23:05)
--- NOTE | 2023-11-15 23:06 | PC.NURSE ---
pt reporting 10/10 pain at this time, pt is tearful. pt medicated per mar with PRN pain medication.
[2023-11-16 02:40] VITALS: BP 112/60; PULSE 64; RESP 16; TEMP 36.6; O2SAT 95
[2023-11-16 05:58] VITALS: BP 122/63; PULSE 58; RESP 16; TEMP 36.4; O2SAT 96
[2023-11-16 06:21] LABS: Hematocrit 40.9 % (42.0-52.0); Hemoglobin 13.8 g/dl (14.0-18.0); Mean Corpuscular HGB Conc 33.7 g/dl (31.0-36.0); Mean Corpuscular Hemoglobin 30.9 pg (27.0-33.0); Mean Corpuscular Volume 91.5 fL (80.0-98.0); Mean Platelet Volume 10.1 fL (9.4-12.4); Platelet Count 200 X10*3/uL (160-400); Red Blood Count 4.47 X10*6/uL (4.60-5.80); Red Cell Distribution Width 13.1 % (11.0-16.0); White Blood Count 11.9 X10*3/uL (4.8-10.8)
--- NOTE | 2023-11-16 06:21 | MHC.EDTECH ---
Pt placed into hospital bed for comfort. Call fisher within reach.
--- NOTE | 2023-11-16 06:23 | PC.NURSE ---
pt placed on hospital bed for comfort, pt reporting 10/10 pain from movement at this time. pt medicated per may.
[2023-11-16] MEDS: Morphine Sulfate 4 MG/ML CARTRIDGE 2 MG IVPUSH ×4 (06:24→20:31)
[2023-11-16 06:29] LABS: Anion Gap 13 (12-20); Blood Urea Nitrogen 13 mg/dL (9-16); Calcium 8.7 mg/dL (8.4-10.2); Carbon Dioxide 25 mmol/L (22-29); Chloride 105 mmol/L (96-108); Creatinine Clr Calc Pharmacy 58.4; Estimated Glomerular Filt Rate > 60; Glucose Random 137 mg/dL (60-115); Potassium 4.3 mmol/L (3.3-5.1); Sodium 139 mmol/L (135-145)
--- NOTE | 2023-11-16 07:24 | PM.EVENT ---
Event Note Date of Service: 11/16/23 Event Note: No x-rays obtained, only CT scan ordered X-Rays ordered Attempted to see patient, not in ED bay, likely taken for hip x-rays. Will reattempt consult later today Time Spent With Patient Time: Total time managing care of this patient today ____ minutes.
--- NOTE | 2023-11-16 07:43 | PM.HPOR ---
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 The door was stuck closed and caused him to lose his balance and fall backwards landing on the left hip. He felt immediate left hip pain and was unable to ambulate. He presented to the ED were a CT scan was obtained and he was found to have a left hip intertrochanteric fracture. The patient was admitted to the medicine service with orthopedic consult. Plain films were ordered this morning. Review of Systems Review of Systems: Yes all other systems are reviewed and are negative PMFSH Past Medical History Medical History Chronic anticoagulation Left leg DVT Prostate cancer Elevated PSA Social History Social History Patient Tobacco Use Status: Never used Tobacco Smoked in Last 30 Days: No Use of substances other than those prescribed or required for medical reasons: No Advance Directives: Yes Advance Directives Information Provided: Yes Advance Directives on File: No Do you have a plan to hurt others: No Plan Nutrition Risks: No Nutritional Risk Meds Allergies Allergy/AdvReac Type Severity Reaction Status Date / Time No Known Allergies Allergy Verified 11/15/23 13:49 Active Medications: Current Medications Acetaminophen (Acetaminophen 325 Mg Tablet) 650 mg PO Q6H PRN PRN Reason: Pain, Mild (Pain Scale 1-3), fever or headache Al Hydroxide/Mg Hydroxide (Magnesium Hydrox/Alum Hydrox 30 Ml Oral.Susp) 30 ml PO Q4H PRN PRN Reason: Heartburn Calcium Carbonate (Calcium Carbonate 750 Mg Tab.Chew) 750 mg PO Q4H PRN PRN Reason: Heartburn Magnesium Hydroxide (Milk Of Magnesia 30 Ml Oral.Susp) 30 ml PO DAILY PRN PRN Reason: Constipation Melatonin (Melatonin 3 Mg Tablet) 6 mg PO BEDTIME PRN PRN Reason: Insomnia Morphine Sulfate (Morphine Sulfate 4 Mg/Ml Cartridge) 2 mg IVPUSH Q4H PRN; Protocol PRN Reason: Pain, Severe (Pain Scale 7-10) Last Admin: 08/28/24 06:24 Dose: 2 mg Ondansetron HCl (Ondansetron Hcl 4 Mg/2 Ml Vial) 4 mg IVPUSH Q8H PRN PRN Reason: Nausea and Vomiting Polyethylene Glycol (Polyethylene Glycol 3350 17 Gm Powd.Pack) 17 gm PO DAILY PRN PRN Reason: Constipation Sodium Chloride (0.9 % Sodium Chloride Flush 3 Ml Syringe) [facility] Last Admin: 11/16/23 00:00 Dose: 3 ml Home Medications ?Medication ?Instructions ?Recorded ?Confirmed ?Last Taken ?Type apixaban 5 mg tablet 5 mg PO BID 06/04/20 11/15/23 11/15/23 08:00 History calcium carbonate (Calcium 600) 600 mg PO BID 11/15/23 11/15/23 11/15/23 08:00 History memantine 7 mg capsule 7 mg PO BEDTIME 11/15/23 11/15/23 11/14/23 History sprinkle,extended release 24hr Physical Exam Vital Signs: Vital Signs: Last Vital Signs Temp 97.5 F 11/16/23 05:58 Pulse 58 11/16/23 05:58 Resp 16 11/16/23 05:58 BP 122/63 11/16/23 05:58 Pulse Ox 96 11/16/23 05:58 O2 Del Method Room Air 11/16/23 05:58 BMI result Body Mass Index 23.5 Const: General: cooperative, healthy appearing and no acute distress Resp: Effort & Inspection: normal respiratory effort and able to speak in complete sentences Cardio: Rate: regular rate Peripheral pulses: Peripheral pulses 2+ throughout GI: Palpation (GI): Soft to palpation Skin: Lesions: no lesions Rashes: no rashes Extrem: Other: Left lower extremity is shortened and externally rotated. Able to dorsi/plantar flex. NVI. Results Labs 11/16/23 05:05 11/16/23 05:05 Labs: Abnormal lab results 11/15/23 11/15/23 11/15/23 Range/Units 14:04 17:04 21:05 WBC (4.8-10.8) X10*3/uL RBC 4.59 L (4.60-5.80) X10*6/uL Hgb (14.0-18.0) g/dl Hct 41.5 L (42.0-52.0) % Lymph % (Auto) 12.6 L (20-40) % Eos % (Auto) 7.1 H (0-4) % Lymph # (Auto) 0.9 L (1.2-4.9) X10*3/uL Eos # (Auto) 0.5 H (0.0-0.4) X10*3/uL PT 14.0 H (11.1-13.3) SEC INR 1.2 H (0.9-1.1) Anion Gap 9 L (12-20) BUN 17 H (9-16) mg/dL POC Glucose 150 H (60-115) mg/dL Random Glucose 201 H (60-115) mg/dL Total Protein 6.3 L (6.5-8.0) g/dL 11/16/23 Range/Units 05:05 WBC 11.9 H (4.8-10.8) X10*3/uL RBC 4.47 L (4.60-5.80) X10*6/uL Hgb 13.8 L (14.0-18.0) g/dl Hct 40.9 L (42.0-52.0) % Lymph % (Auto) (20-40) % Eos % (Auto) (0-4) % Lymph # (Auto) (1.2-4.9) X10*3/uL Eos # (Auto) (0.0-0.4) X10*3/uL PT (11.1-13.3) SEC INR (0.9-1.1) Anion Gap (12-20) BUN (9-16) mg/dL POC Glucose (60-115) mg/dL Random Glucose 137 H (60-115) mg/dL Total Protein (6.5-8.0) g/dL H & H 11/15/23 11/16/23 Range/Units 14:04 05:05 Hgb 14.6 13.8 L (14.0-18.0) g/dl Hct 41.5 L 40.9 L (42.0-52.0) % Coagulation 11/15/23 Range/Units 17:04 INR 1.2 H (0.9-1.1) All other labs normal. Assessment and Plan (1) Closed intertrochanteric fracture of left femur: Status: Acute I discussed the case with Dr. Churchill and explained the extent of the injury to the patient and options available which include surgical intervention. I explained the procedure in detail along with the length of recovery and rehab course. I explained the risk, benefits and alternatives. Risk including, but not limited to infection, blood clots, bleeding, non union or malunion and nerve/tissue damage to surrounding areas. I answered all their questions and with their understanding they have consented to move forward with Operative Fixation of the left hip. The patient will be T&S, med clearance obtained and hold Everest. Plan for OR Tuesday due to anticoagulant use. Quality Stroke Does the patient have a stroke diagnosis?: No VTE Prior VTE?: No VTE Risk Level:: Surgical - very high VTE Device Contraindication: Treatment Not Indicated VTE Drug Contraindication: N/A - Med Ordered Procedures Date of Service Date of Service: 11/16/23
--- NOTE | 2023-11-16 07:47 | PC.NURSE ---
patient resting quietly in bed, respirations equal and unlabored, skin dry and intact. patient is alert and oriented. patient denies any needs at this time, call fisher within reach. ate a banana this morning for breakfast, does not want to eat anymore.
[2023-11-16 09:23] VITALS: BP 134/72; PULSE 70; RESP 18; TEMP 36.8; O2SAT 94
--- NOTE | 2023-11-16 09:28 | MHC.CM.PN ---
CM spoke with Daughter @ listed #. 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 Patient will benefit from a PT EVal to assist with disposition; Daughter & are agreeable to a local SNF search (STR appears likely r/t Hip FX). Daughter & are HCPs, copy requested.PCP is Dr. Zeke Herrera.
--- NOTE | 2023-11-16 10:21 | HO.PM.IMPN ---
Subjective Subjective Date of Service: 11/16/23 Interval History: f/u on hip fracture pain is controlled Review of Systems left hip pain with movment Physical Exam Vital Signs: Vital Signs: Last Vital Signs Temp 98.2 F 11/16/23 09:23 Pulse 70 11/16/23 09:23 Resp 18 11/16/23 09:23 BP 134/72 11/16/23 09:23 Pulse Ox 94 11/16/23 09:23 O2 Del Method Room Air 11/16/23 09:23 BMI result Body Mass Index 23.5 Const: Other: General: AO X 3, no acute distress Resp: CTA bilateral CVS: S1,S2,RRR GI: +BS, NT, no distention Skin: No rash MSK: external rotation of the LLE, and shortening of the leg Neuro: motor grossly intact Psych: appropriate affect Objective Data Active Medications Acetaminophen (Acetaminophen 325 Mg Tablet) 650 mg PO Q6H PRN PRN Reason: Pain, Mild (Pain Scale 1-3), fever or headache Al Hydroxide/Mg Hydroxide (Magnesium Hydrox/Alum Hydrox 30 Ml Oral.Susp) 30 ml PO Q4H PRN PRN Reason: Heartburn Calcium Carbonate (Calcium Carbonate 750 Mg Tab.Chew) 750 mg PO Q4H PRN PRN Reason: Heartburn Cefazolin Sodium/Dextrose (Ancef) 2 gm in 50 mls @ 100 mls/hr IV PREOP ONE Stop: 11/18/23 05:33 Magnesium Hydroxide (Milk Of Magnesia 30 Ml Oral.Susp) 30 ml PO DAILY PRN PRN Reason: Constipation Melatonin (Melatonin 3 Mg Tablet) 6 mg PO BEDTIME PRN PRN Reason: Insomnia Morphine Sulfate (Morphine Sulfate 4 Mg/Ml Cartridge) 2 mg IVPUSH Q4H PRN; Protocol PRN Reason: Pain, Severe (Pain Scale 7-10) Last Admin: 11/16/23 06:24 Dose: 2 mg Documented By: NAILA Ondansetron HCl (Ondansetron Hcl 4 Mg/2 Ml Vial) 4 mg IVPUSH Q8H PRN PRN Reason: Nausea and Vomiting Polyethylene Glycol (Polyethylene Glycol 3350 17 Gm Powd.Pack) 17 gm PO DAILY PRN PRN Reason: Constipation Sodium Chloride (0.9 % Sodium Chloride Flush 3 Ml Syringe) 3 ml IVFLUSH [facility] Last Admin: 11/16/23 07:49 Dose: Not Given Documented By: STEVE Non-Admin Reason: See Note Labs 11/16/23 05:05 11/16/23 05:05 Labs: Laboratory Results - last 24 hr 11/15/23 11/15/23 11/15/23 14:04 17:04 17:18 MCV 90.4 MCH 31.8 MCHC 35.2 RDW 13.0 Plt Count 199 MPV 10.2 Immature Gran % (Auto) 0.3 Neut % (Auto) 71.1 Lymph % (Auto) 12.6 L [place] % (Auto) 8.8 Eos % (Auto) 7.1 H Baso % (Auto) 0.1 Lymph # (Auto) 0.9 L [place] # (Auto) 0.6 Eos # (Auto) 0.5 H Baso # (Auto) 0.0 Abs Immat Gran (auto) 0.02 Absolute Neuts (auto) 4.9 Absolute Nucleated RBC 0.000 Nucleated RBC % (auto) 0.0 PT 14.0 H INR 1.2 H APTT 27.1 Anion Gap 9 L Estim Creat Clear Calc 49.4 Estimated GFR > 60 POC Glucose Random Glucose 201 H Calcium 8.7 Total Bilirubin 0.3 AST 22 ALT 20 Alkaline Phosphatase 115 Total Protein 6.3 L Albumin 3.6 Blood Type B Positive Antibody Screen NEGATIVE 11/15/23 11/16/23 21:05 05:05 MCV 91.5 MCH 30.9 MCHC 33.7 RDW 13.1 Plt Count 200 MPV 10.1 Immature Gran % (Auto) Neut % (Auto) Lymph % (Auto) [place] % (Auto) Eos % (Auto) Baso % (Auto) Lymph # (Auto) [place] # (Auto) Eos # (Auto) Baso # (Auto) Abs Immat Gran (auto) Absolute Neuts (auto) Absolute Nucleated RBC 0.000 Nucleated RBC % (auto) 0.0 PT INR APTT Anion Gap 13 Estim Creat Clear Calc 58.4 Estimated GFR > 60 POC Glucose 150 H Random Glucose 137 H Calcium 8.7 Total Bilirubin AST ALT Alkaline Phosphatase Total Protein Albumin Blood Type Antibody Screen Assessment and Plan (1) Closed intertrochanteric fracture of left femur: Status: Acute (2) Chronic anticoagulation: Status: Acute (3) Left leg DVT: Status: Acute Plan 78/m with h/o DVT on xarelto here with accidental fall resulting in left hip fracture Left hip fracture d/t accidental fall -ortho consult -morphine for pain -hold eliquis before surgery h/o Left leg DVT--on eliquis -levenox for dvt prophylaxis, pharmacy record show eliquis was started stem2022, therefore not acute dvt mild intermittent asthma--inhaler Probable dense perforating vessels near the vertex and falx. Petechial bleed is considered less likely. MRI advised for further evaluation. -MRI of brain no acute finding dvt compression device, resume xarelto after surgery full code Quality Stroke Does the patient have a stroke diagnosis?: No VTE Prior VTE?: No VTE Risk Level:: Surgical - very high VTE Device Contraindication: Treatment Not Indicated VTE Drug Contraindication: N/A - Med Ordered
[2023-11-16] MEDS: Enoxaparin Sodium 40 MG/0.4 ML SYRINGE SUBCUT (10:48)
[2023-11-16] MEDS: Finasteride 5 MG TABLET PO (10:48)
[2023-11-16 15:48] VITALS: BP 128/83; PULSE 87; RESP 18; TEMP 36.6; O2SAT 95
[2023-11-16] MEDS: 0.9 % Sodium Chloride Flush 3 ML SYRINGE IVFLUSH ×3 (16:12→19:30)
[2023-11-16 19:13] VITALS: BP 139/74; PULSE 74; RESP 18; TEMP 36.6; O2SAT 95
--- NOTE | 2023-11-16 19:45 | PC.NURSE ---
Addendum entered by Rocio Forrest RN 11/17/23 02:37: Patient impulsive overnight, removing [place] catheter and attempting to get out of bed despite redirecting and reorientation, bed alarm and other high-fall risk safety measures. Discussed with nursing supervisor taping. In-room camera placed and discussed with VMT. Original Note: Assumed care of patient at 19:00. Patient and his Della were offered a janitor helper per handoff report though both politely declined, and were able to coomunicate with singer songwriter in [place] and make pt's needs knwon. Pt's at bedside with home 14mg memantine capsules. Med rec done by pharmacy care coordinator reviewed showing 7mg. states dose was changed by provider to 1mg in September. Covering Dr. Macario notified and order changed. This was discussed with pharmacy who advised to placed home med bottle in patient specific bin to await pickup by pharmacy care coordinator for pharmacy verification, done as requested.
[2023-11-16 21:02] VITALS: RESP 16
[2023-11-17 03:57] VITALS: BP 134/69; PULSE 70; RESP 18; TEMP 36.6; O2SAT 96
[2023-11-17 05:26] VITALS: RESP 16
[2023-11-17 08:02] LABS: Hematocrit 37.8 % (42.0-52.0); Hemoglobin 13.2 g/dl (14.0-18.0); Mean Corpuscular HGB Conc 34.9 g/dl (31.0-36.0); Mean Corpuscular Hemoglobin 31.9 pg (27.0-33.0); Mean Corpuscular Volume 91.3 fL (80.0-98.0); Mean Platelet Volume 10.3 fL (9.4-12.4); Platelet Count 172 X10*3/uL (160-400); Red Blood Count 4.14 X10*6/uL (4.60-5.80); Red Cell Distribution Width 13.1 % (11.0-16.0); White Blood Count 10.7 X10*3/uL (4.8-10.8)
[2023-11-17 08:07] LABS: Anion Gap 10 (12-20); Blood Urea Nitrogen 12 mg/dL (9-16); Calcium 8.5 mg/dL (8.4-10.2); Carbon Dioxide 31 mmol/L (22-29); Chloride 103 mmol/L (96-108); Creatinine Clr Calc Pharmacy 57.8; Estimated Glomerular Filt Rate > 60; Glucose Random 139 mg/dL (60-115); Potassium 4.8 mmol/L (3.3-5.1); Sodium 139 mmol/L (135-145)
[2023-11-17 08:57] VITALS: BP 133/64; PULSE 80; RESP 18; TEMP 36.7; O2SAT 96
--- NOTE | 2023-11-17 09:37 | PM.PNORT ---
Subjective Subjective Date of Service: 11/17/23 Interval history: Patient is a 78-year-old male who was admitted to the hospital for treatment of intertrochanteric fracture of the left hip However, due to patient being on Eliquis, plan is for surgery Tuesday Patient reports that he is feeling all right today, but is still experiencing significant discomfort in the left hip Patient reports that he has normal sensation in the distal left lower extremity No other acute complaints or concerns at this time. Physical Exam Vital Signs: Vital Signs: Last Vital Signs Temp 98.1 F 11/17/23 08:57 Pulse 80 11/17/23 08:57 Resp 18 11/17/23 08:57 BP 133/64 11/17/23 08:57 Pulse Ox 96 11/17/23 08:57 O2 Del Method Room Air 11/17/23 08:57 BMI result Body Mass Index 23.5 Extrem: Other: On inspection, left lower extremity is shortened and externally rotated Distal sensation intact Capillary refill brisk Patient is able to dorsiflex and plantar flex the left foot without difficulty Procedures Date of Service Date of Service: 11/17/23 Progress Note: A&P Assessment and plan (1) Closed intertrochanteric fracture of left femur: Status: Acute Plan 1. Intertrochanteric fracture of the left hip Due to patient's anticoagulation therapy with Eliquis, plan is to proceed with ORIF on 11/18/2023 Continue holding Eliquis until that time Until then, patient should continue with all recommendations per Medicine Patient is amenable to this plan Time Spent With Patient Time: Total time managing care of this patient today ____ minutes. Quality Stroke Does the patient have a stroke diagnosis?: No VTE Prior VTE?: No VTE Risk Level:: Surgical - very high VTE Device Contraindication: Treatment Not Indicated VTE Drug Contraindication: N/A - Med Ordered
[2023-11-17] MEDS: 0.9 % Sodium Chloride Flush 3 ML SYRINGE IVFLUSH ×3 (09:51→21:09)
[2023-11-17] MEDS: Enoxaparin Sodium 40 MG/0.4 ML SYRINGE SUBCUT (09:52)
[2023-11-17] MEDS: Finasteride 5 MG TABLET PO (09:52)
--- NOTE | 2023-11-17 10:28 | HO.PM.IMPN ---
Subjective Subjective Date of Service: 11/17/23 Interval History: f/u on hip fracture pain is controlled surgery tommorrow Review of Systems left hip pain with movment Physical Exam Vital Signs: Vital Signs: Last Vital Signs Temp 98.1 F 11/17/23 08:57 Pulse 80 11/17/23 08:57 Resp 18 11/17/23 08:57 BP 133/64 11/17/23 08:57 Pulse Ox 96 11/17/23 08:57 O2 Del Method Room Air 11/17/23 08:57 BMI result Body Mass Index 23.5 Objective Data Active Medications Acetaminophen (Acetaminophen 325 Mg Tablet) 650 mg PO Q6H PRN PRN Reason: Pain, Mild (Pain Scale 1-3), fever or headache Al Hydroxide/Mg Hydroxide (Magnesium Hydrox/Alum Hydrox 30 Ml Oral.Susp) 30 ml PO Q4H PRN PRN Reason: Heartburn Calcium Carbonate (Calcium Carbonate 750 Mg Tab.Chew) 750 mg PO Q4H PRN PRN Reason: Heartburn Enoxaparin Sodium (Enoxaparin Sodium 40 Mg/0.4 Ml Syringe) 40 mg SUBCUT Q24H [facility] Last Admin: 11/17/23 09:52 Dose: 40 mg Documented By: ZEV Finasteride (Finasteride 5 Mg Tablet) 5 mg PO DAILY [facility] Last Admin: 11/17/23 09:52 Dose: 5 mg Documented By: ZEV Cefazolin Sodium/Dextrose (Ancef) 2 gm in 50 mls @ 100 mls/hr IV PREOP ONE Stop: 11/18/23 05:33 Magnesium Hydroxide (Milk Of Magnesia 30 Ml Oral.Susp) 30 ml PO DAILY PRN PRN Reason: Constipation Melatonin (Melatonin 3 Mg Tablet) 6 mg PO BEDTIME PRN PRN Reason: Insomnia Morphine Sulfate (Morphine Sulfate 4 Mg/Ml Cartridge) 2 mg IVPUSH Q4H PRN; Protocol PRN Reason: Pain, Severe (Pain Scale 7-10) Last Admin: 11/16/23 20:31 Dose: 2 mg Documented By: AVI Pt Own (Memantine Er (14 Mg)) 14 mg PO BEDTIME [facility] Last Admin: 11/16/23 21:41 Dose: 14 mg Documented By: AVI Ondansetron HCl (Ondansetron Hcl 4 Mg/2 Ml Vial) 4 mg IVPUSH Q8H PRN PRN Reason: Nausea and Vomiting Polyethylene Glycol (Polyethylene Glycol 3350 17 Gm Powd.Pack) 17 gm PO DAILY PRN PRN Reason: Constipation Sodium Chloride (0.9 % Sodium Chloride Flush 3 Ml Syringe) 3 ml IVFLUSH QSHIFT [facility] Last Admin: 11/17/23 09:51 Dose: 3 ml Documented By: ZEV Labs 11/17/23 07:33 11/17/23 07:33 Labs: Laboratory Results - last 24 hr 11/17/23 07:33 MCV 91.3 MCH 31.9 MCHC 34.9 RDW 13.1 Plt Count 172 MPV 10.3 Absolute Nucleated RBC 0.000 Nucleated RBC % (auto) 0.0 Anion Gap 10 L Estim Creat Clear Calc 57.8 Estimated GFR > 60 Random Glucose 139 H Calcium 8.5 Assessment and Plan (1) Closed intertrochanteric fracture of left femur: Status: Acute (2) Chronic anticoagulation: Status: Acute (3) Left leg DVT: Status: Acute Plan 78/m with h/o DVT on xarelto here with accidental fall resulting in left hip fracture Left hip fracture d/t accidental fall -operative repair tommorrow -morphine for pain -hold eliquis before surgery, resume 48 hrs after surgery h/o Left leg DVT--on eliquis -levenox for dvt prophylaxis, pharmacy record show eliquis was started November 2022, therefore not acute dvt mild intermittent asthma- no exacerbation -inhaler Probable dense perforating vessels near the vertex and falx. Petechial bleed is considered less likely. MRI advised for further evaluation. -MRI of brain no acute finding dvt compression device, resume xarelto after surgery, lovenox full code Quality Stroke Does the patient have a stroke diagnosis?: No VTE Prior VTE?: No VTE Risk Level:: Surgical - very high VTE Device Contraindication: Treatment Not Indicated VTE Drug Contraindication: N/A - Med Ordered
[2023-11-17] MEDS: Milk of Magnesia 30 ML ORAL.SUSP PO (11:18)
[2023-11-17] MEDS: Morphine Sulfate 4 MG/ML CARTRIDGE 2 MG IVPUSH ×3 (11:18→23:09)
[2023-11-17 15:36] VITALS: BP 156/78; PULSE 77; RESP 16; TEMP 36.8; O2SAT 96
[2023-11-17 19:17] VITALS: BP 145/72; PULSE 81; RESP 18; TEMP 36.6; O2SAT 95
[2023-11-17] MEDS: polyethylene glycoL 3350 17 GM POWD.PACK PO (21:18)
[2023-11-18] VITALS (14 sets, daily range): BP systolic 110–154; BP diastolic 58–85; PULSE 68–96; RESP 12–24; TEMP 36.2–36.8; O2SAT 93–100
[2023-11-18 06:21] LABS: Hematocrit 37.4 % (42.0-52.0); Hemoglobin 12.8 g/dl (14.0-18.0); Mean Corpuscular HGB Conc 34.2 g/dl (31.0-36.0); Mean Corpuscular Hemoglobin 31.1 pg (27.0-33.0); Mean Platelet Volume 10.1 fL (9.4-12.4); Platelet Count 167 X10*3/uL (160-400); Red Blood Count 4.11 X10*6/uL (4.60-5.80); Red Cell Distribution Width 12.9 % (11.0-16.0); White Blood Count 10.1 X10*3/uL (4.8-10.8)
--- NOTE | 2023-11-18 06:49 | P.PNIM_ITS ---
Subjective Subjective Date of Service: 11/19/23 Interval History: f/u on hip fracture pain is controlled surgery done today pain controlled Review of Systems left hip pain with movment Physical Exam 2 Vital Signs: Vital Signs: Last Vital Signs Temp 97.3 F 11/18/23 03:18 Pulse 73 11/18/23 03:18 Resp 16 11/18/23 03:18 BP 141/70 H 11/18/23 03:18 Pulse Ox 96 11/18/23 03:18 O2 Del Method Room Air 11/18/23 03:18 BMI result Body Mass Index 23.5 Const: Other: General: AO X 3, no acute distress Resp: CTA bilateral CVS: S1,S2,RRR GI: +BS, NT, no distention Skin: No rash MSK: surgery sitge d/c/i Neuro: motor grossly intact Psych: appropriate affect Objective Data Active Medications Acetaminophen (Acetaminophen 325 Mg Tablet) 650 mg PO Q6H PRN PRN Reason: Pain, Mild (Pain Scale 1-3), fever or headache Al Hydroxide/Mg Hydroxide (Magnesium Hydrox/Alum Hydrox 30 Ml Oral.Susp) 30 ml PO Q4H PRN PRN Reason: Heartburn Calcium Carbonate (Calcium Carbonate 750 Mg Tab.Chew) 750 mg PO Q4H PRN PRN Reason: Heartburn Enoxaparin Sodium (Enoxaparin Sodium 40 Mg/0.4 Ml Syringe) 40 mg SUBCUT Q24H [facility] Last Admin: 11/17/23 09:52 Dose: 40 mg Documented By: ZEV Finasteride (Finasteride 5 Mg Tablet) 5 mg PO DAILY [facility] Last Admin: 11/17/23 09:52 Dose: 5 mg Documented By: ZEV Magnesium Hydroxide (Milk Of Magnesia 30 Ml Oral.Susp) 30 ml PO DAILY PRN PRN Reason: Constipation Last Admin: 11/17/23 11:18 Dose: 30 ml Documented By: ZEV Melatonin (Melatonin 3 Mg Tablet) 6 mg PO BEDTIME PRN PRN Reason: Insomnia Morphine Sulfate (Morphine Sulfate 4 Mg/Ml Cartridge) 2 mg IVPUSH Q4H PRN; Protocol PRN Reason: Pain, Severe (Pain Scale 7-10) Last Admin: 11/17/23 23:09 Dose: 2 mg Documented By: MELVA Pt Own (Memantine Er (14 Mg)) 14 mg PO BEDTIME [facility] Last Admin: 11/17/23 21:08 Dose: 14 mg Documented By: MELVA Ondansetron HCl (Ondansetron Hcl 4 Mg/2 Ml Vial) 4 mg IVPUSH Q8H PRN PRN Reason: Nausea and Vomiting Polyethylene Glycol (Polyethylene Glycol 3350 17 Gm Powd.Pack) 17 gm PO DAILY PRN PRN Reason: Constipation Last Admin: 11/17/23 21:18 Dose: 17 gm Documented By: MELVA Sodium Chloride (0.9 % Sodium Chloride Flush 3 Ml Syringe) 3 ml IVFLUSH QSHIFT [facility] Last Admin: 11/17/23 21:09 Dose: 3 ml Documented By: MELVA Labs 11/19/23 07:49 11/19/23 07:49 Labs: Laboratory Results - last 24 hr 11/17/23 11/18/23 07:33 06:13 MCV 91.3 91.0 MCH 31.9 31.1 MCHC 34.9 34.2 RDW 13.1 12.9 Plt Count 172 167 MPV 10.3 10.1 Absolute Nucleated RBC 0.000 0.000 Nucleated RBC % (auto) 0.0 0.0 Anion Gap 10 L Estim Creat Clear Calc 57.8 Estimated GFR > 60 Random Glucose 139 H Calcium 8.5 Assessment and Plan (1) Closed intertrochanteric fracture of left femur: Status: Acute (2) Chronic anticoagulation: Status: Acute (3) Left leg DVT: Status: Acute Plan 78/m with h/o DVT on xarelto here with accidental fall resulting in left hip fracture Left hip fracture d/t accidental fall -operative repair today -morphine for pain -hold eliquis before surgery, resume 48 hrs after surgery h/o Left leg DVT--on eliquis -levenox for dvt prophylaxis, pharmacy record show eliquis was started November 2022, therefore not acute dvt mild intermittent asthma- no exacerbation -inhaler Probable dense perforating vessels near the vertex and falx. Petechial bleed is considered less likely. MRI advised for further evaluation. -MRI of brain no acute finding dvt compression device, resume xarelto after surgery, lovenox full code Quality Stroke Does the patient have a stroke diagnosis?: No VTE Prior VTE?: No VTE Risk Level:: Surgical - very high VTE Device Contraindication: Treatment Not Indicated VTE Drug Contraindication: N/A - Med Ordered
[2023-11-18 06:50] LABS: Anion Gap 12 (12-20); Blood Urea Nitrogen 14 mg/dL (9-16); Calcium 8.3 mg/dL (8.4-10.2); Carbon Dioxide 28 mmol/L (22-29); Chloride 102 mmol/L (96-108); Creatinine Clr Calc Pharmacy 64.2; Estimated Glomerular Filt Rate > 60; Glucose Random 142 mg/dL (60-115); Potassium 4.6 mmol/L (3.3-5.1); Sodium 137 mmol/L (135-145)
--- NOTE | 2023-11-18 07:06 | ECG_ITS ---
Test Reason : postop Blood Pressure : / mmHG Vent. Rate : 068 BPM Atrial Rate : 068 BPM P-R Int : 146 ms QRS Dur : 136 ms QT Int : 408 ms P-R-T Axes : 060 016 026 degrees QTc Int : 433 ms Normal sinus rhythm Right bundle branch block Abnormal ECG No previous ECGs available Referred By: Irene Carter Electronically Signed By:TRACY PRAJAPATI
[2023-11-18] MEDS: Lactated Ringers 1,000 ML 50 ML IVCONT (07:10)
[2023-11-18] MEDS: ceFAZolin Sodium/Dextrose,Iso 2 GM/50 ML PIGGYBACK IV ×3 (08:25→23:57)
--- NOTE | 2023-11-18 08:31 | HO.ANESPROP2 ---
HPI - Anesthesia Eval Consult details Narrative: fem nailing, left PMFSH Active Problems Active Problems: All Active Problems Closed intertrochanteric fracture of left femur (Acute) Chronic anticoagulation (Acute) Left leg DVT (Acute) Prostate cancer (Acute) Elevated PSA (Acute) Past Medical History Medical History Kidney stones Chronic anticoagulation Left leg DVT Prostate cancer Elevated PSA Family History Family history of problems with anesthesia: No Surgical History Surgical History History of cystoscopy History of Problems with Anesthesia: No Social History Social History Household Members: Family and Children Housing: House Are you a primary youth career specialist to a significant other at home: No Do you presently have visiting nurse or other home services: No Patient Tobacco Use Status: Never used Tobacco Advance Directives Date on File: 11/16/23 service: No Meds Allergies Allergy/AdvReac Type Severity Reaction Status Date / Time No Known Allergies Allergy Verified 11/18/23 06:38 Active Medications: Current Medications Acetaminophen (Acetaminophen 325 Mg Tablet) 650 mg PO Q6H PRN PRN Reason: Pain, Mild (Pain Scale 1-3), fever or headache Al Hydroxide/Mg Hydroxide (Magnesium Hydrox/Alum Hydrox 30 Ml Oral.Susp) 30 ml PO Q4H PRN PRN Reason: Heartburn Calcium Carbonate (Calcium Carbonate 750 Mg Tab.Chew) 750 mg PO Q4H PRN PRN Reason: Heartburn Enoxaparin Sodium (Enoxaparin Sodium 40 Mg/0.4 Ml Syringe) 40 mg SUBCUT Q24H [facility] Last Admin: 11/17/23 09:52 Dose: 40 mg Finasteride (Finasteride 5 Mg Tablet) 5 mg PO DAILY [facility] Last Admin: 11/17/23 09:52 Dose: 5 mg Lactated Ringer's (Lr) 1,000 mls @ 50 mls/hr IVCONT .Q20H [facility] Last Admin: 11/18/23 07:10 Dose: 50 mls/hr Magnesium Hydroxide (Milk Of Magnesia 30 Ml Oral.Susp) 30 ml PO DAILY PRN PRN Reason: Constipation Last Admin: 11/17/23 11:18 Dose: 30 ml Melatonin (Melatonin 3 Mg Tablet) 6 mg PO BEDTIME PRN PRN Reason: Insomnia Morphine Sulfate (Morphine Sulfate 4 Mg/Ml Cartridge) 2 mg IVPUSH Q4H PRN; Protocol PRN Reason: Pain, Severe (Pain Scale 7-10) Last Admin: 11/17/23 23:09 Dose: 2 mg Pt Own (Memantine Er (14 Mg)) 14 mg PO BEDTIME [facility] Last Admin: 11/17/23 21:08 Dose: 14 mg Ondansetron HCl (Ondansetron Hcl 4 Mg/2 Ml Vial) 4 mg IVPUSH Q8H PRN PRN Reason: Nausea and Vomiting Polyethylene Glycol (Polyethylene Glycol 3350 17 Gm Powd.Pack) 17 gm PO DAILY PRN PRN Reason: Constipation Last Admin: 11/17/23 21:18 Dose: 17 gm Sodium Chloride (0.9 % Sodium Chloride Flush 3 Ml [facility]) [facility] Last Admin: 11/18/23 08:20 Dose: Not Given Home Medications ?Medication ?Instructions ?Recorded ?Confirmed ?Last Taken ?Type apixaban 5 mg tablet 5 mg PO BID 06/04/20 11/15/23 11/15/23 08:00 History calcium carbonate (Calcium 600) 600 mg PO BID 11/15/23 11/15/23 11/15/23 08:00 History memantine 7 mg capsule 7 mg PO BEDTIME 11/15/23 11/15/23 11/14/23 History sprinkle,extended release 24hr Exam Height,Weight and Vital Signs: Height 5 ft 7 in Weight 68.039 kg Last Vital Signs Temp 98.2 F 11/18/23 06:53 Pulse 73 11/18/23 06:53 Resp 20 11/18/23 06:53 BP 125/66 11/18/23 06:53 Pulse Ox 97 11/18/23 06:53 O2 Del Method Room Air 11/18/23 06:53 Pertinent Lab Results Pertinent Lab Results: Laboratory Tests 11/15/23 11/15/23 11/15/23 14:04 17:04 17:18 WBC 6.9 RBC 4.59 L Hgb 14.6 Hct 41.5 L MCV 90.4 MCH 31.8 MCHC 35.2 RDW 13.0 Plt Count 199 MPV 10.2 Immature Gran % (Auto) 0.3 Neut % (Auto) 71.1 Lymph % (Auto) 12.6 L Banks % (Auto) 8.8 Eos % (Auto) 7.1 H Baso % (Auto) 0.1 Lymph # (Auto) 0.9 L Banks # (Auto) 0.6 Eos # (Auto) 0.5 H Baso # (Auto) 0.0 Abs Immat Gran (auto) 0.02 Absolute Neuts (auto) 4.9 Absolute Nucleated RBC 0.000 Nucleated RBC % (auto) 0.0 PT 14.0 H INR 1.2 H APTT 27.1 Sodium 140 Potassium 4.4 Chloride 106 Carbon Dioxide 29 Anion Gap 9 L BUN 17 H Creatinine 1.17 Estim Creat Clear Calc 49.4 Estimated GFR > 60 POC Glucose Random Glucose 201 H Calcium 8.7 Total Bilirubin 0.3 AST 22 ALT 20 Alkaline Phosphatase 115 Total Protein 6.3 L Albumin 3.6 Blood Type B Positive Antibody Screen NEGATIVE 11/15/23 11/16/23 11/17/23 21:05 05:05 07:33 WBC 11.9 H 10.7 RBC 4.47 L 4.14 L Hgb 13.8 L 13.2 L Hct 40.9 L 37.8 L MCV 91.5 91.3 MCH 30.9 31.9 MCHC 33.7 34.9 RDW 13.1 13.1 Plt Count 200 172 MPV 10.1 10.3 Immature Gran % (Auto) Neut % (Auto) Lymph % (Auto) Banks % (Auto) Eos % (Auto) Baso % (Auto) Lymph # (Auto) Banks # (Auto) Eos # (Auto) Baso # (Auto) Abs Immat Gran (auto) Absolute Neuts (auto) Absolute Nucleated RBC 0.000 0.000 Nucleated RBC % (auto) 0.0 0.0 PT INR APTT Sodium 139 139 Potassium 4.3 4.8 Chloride 105 103 Carbon Dioxide 25 31 H Anion Gap 13 10 L BUN 13 12 Creatinine 0.99 1.00 Estim Creat Clear Calc 58.4 57.8 Estimated GFR > 60 > 60 POC Glucose 150 H Random Glucose 137 H 139 H Calcium 8.7 8.5 Total Bilirubin AST ALT Alkaline Phosphatase Total Protein Albumin Blood Type Antibody Screen 11/18/23 06:13 WBC 10.1 RBC 4.11 L Hgb 12.8 L Hct 37.4 L MCV 91.0 MCH 31.1 MCHC 34.2 RDW 12.9 Plt Count 167 MPV 10.1 Immature Gran % (Auto) Neut % (Auto) Lymph % (Auto) Banks % (Auto) Eos % (Auto) Baso % (Auto) Lymph # (Auto) Banks # (Auto) Eos # (Auto) Baso # (Auto) Abs Immat Gran (auto) Absolute Neuts (auto) Absolute Nucleated RBC 0.000 Nucleated RBC % (auto) 0.0 PT INR APTT Sodium 137 Potassium 4.6 Chloride 102 Carbon Dioxide 28 Anion Gap 12 BUN 14 Creatinine 0.90 Estim Creat Clear Calc 64.2 Estimated GFR > 60 POC Glucose Random Glucose 142 H Calcium 8.3 L Total Bilirubin AST ALT Alkaline Phosphatase Total Protein Albumin Blood Type Antibody Screen Airway Mallampati Class: II TM Dist: >3cm Neck ROM: Full Heart: rrr Lungs: cta Assessment and Plan Assessment Anesthesia Assessment: Anesthesia Plan Discussed Final Anesthetic Review Family History of Problems with Anesthesia: No History of Problems with Anesthesia: No NPO: Yes ASA Class: III Final Preanesthetic Review: No Changes in Pt Med Stat, Meds/Allgs Chart Reviewed, Consent Obtained/Reviewed and Anes Risks/Benef Reviewed Patient Risk: Intermediate Procedure Risk: Intermediate Anesthetic Plan Anesthetic Plan: GA Disposition: Standard PACU
--- NOTE | 2023-11-18 10:03 | PM.OP ---
Brief Operative Note Date of Service: 11/18/23 Pre-op diagnosis: Left hip intertrochanteric fracture Post-op diagnosis: same Procedure: Open reduction and internal fixation of left hip intertrochanteric fracture with placement of a short gamma nail Implants: Von short gamma nail measuring 180 mm in length by 10 mm in diameter with a 125 degree neck-shaft angle, lag screw measuring 100 mm in length, a standard set screw, distal locking bolt measuring 37.5 mm in length Surgeon: Waqas Churchill MD Anesthesia: GETA Was an Gang Vibrator Operator used for this Procedure?: No Estimated blood loss (mL): 100 Pathology: none sent Condition: stable Disposition: PACU
--- NOTE | 2023-11-18 10:04 | P.OP_ITS ---
Operative Note Operative Note Date of Service: 11/18/23 Narrative: After the patient was identified as Jn Sargent and his left hip was initialed by myself they were brought to the operating room where general anesthesia via endotracheal tube was induced by the anesthesiologist in routine fashion. The patient was given 2 g of IV Ancef for infection prophylaxis. The patient was then gently transferred from the hospital bed onto the fracture table. The patient's right lower extremity was placed into the well leg obrien. The patient's left lower extremity was placed in gentle in-line traction with their patella parallel to the floor. All bony prominences were well padded. C- arm AP and lateral radiographs were taken to confirm good fracture reduction. The patient's left hip region was prepped and draped in sterile fashion. A formal time-out was completed. A #10 scalpel blade was used to make a 5 cm incision just proximal to the tip of the greater trochanter. A curved cannulated awl was introduced into the proximal femur in routine fashion. A ball-tipped guidewire was then placed through the cannula and into the femoral canal. The awl was removed. Reaming was begun with a 9 mm reamer. Reaming was increased incrementally up to a size 13 reamer distally. The proximal canal was reamed with a 15.5 mm reamer. The gamma nail measuring 11 mm in diameter by 180 mm in length was passed over the guidewire. Good fracture reduction and nail positioning were confirmed using C-arm AP and lateral radiographs. A 2 cm incision was then made where the lag screw trocar met the patient's lateral thigh. The subcutaneous tissues and fascia monica were split down to the lateral cortex of the femur using a hemostat. The lag screw trocar was passed down to the lateral cortex of the femur. A threaded guidewire was then placed into the inferior aspect of the femoral head on the AP x-ray and the center of the femoral head on the lateral x-ray. The guidewire measured 100 mm in length. Reaming was then performed over the guidewire to a depth of 100 mm. The lag screw measuring 100 mm in length was then placed over the guidewire. The guidewire was removed. The set screw was then placed into the nail and tightened fully. It was then turned 1/4 of a turn counter-clockwise to allow for fracture compression. The end cap was then put into place in routine fashion. A 2 cm incision was then made where the distal locking bolt trocar met the lateral aspect of the patient's thigh. The subcutaneous tissues and the fascia monica were split down to the lateral cortex of the femur. The locking bolt hole was drilled in routine fashion. The drill bit measured 37.5 mm in length. The distal locking bolt measuring 37.5 mm in length was put into place without difficulty. Final AP and lateral radiographs showed good fracture reduction and hardware positioning. All 3 wounds were irrigated with copious amounts of normal saline solution. The distal 2 wounds were closed with 2-0 Vicryl and skin maximiliano. The proximal wound was once again irrigated. The fascia monica was closed with 0 Vicryl [id number] interrupted suture. The wound was once again irrigated. The subcutaneous tissues were closed with 2-0 Vicryl interrupted suture. The skin was closed with skin maximiliano. Dry sterile dressing was placed over all incisions. The patient was gently transferred from the fracture table onto their hospital bed. The patient was awoken and extub ated in the operating room. The patient was transferred to the recovery room in stable condition.
[2023-11-18] MEDS: fentaNYL citrate/PF 100 MCG/2 ML VIAL 25 MCG IVPUSH ×2 (10:33→10:38)
--- NOTE | 2023-11-18 10:51 | MHC.CM.PN ---
PER MD ROUNDS, PT SURGERY PLANNED FOR TODAY DISPOSITION TBD PENDING PT EVAL STR VS HOME WITH SERVICES TRANSPORT TBD PENDING DISPO
[2023-11-18] MEDS: 0.9 % Sodium Chloride Flush 3 ML SYRINGE IVFLUSH ×2 (14:32→20:17)
[2023-11-18] MEDS: Apixaban 5 MG TABLET PO (20:15)
[2023-11-18] MEDS: polyethylene glycoL 3350 17 GM POWD.PACK PO (21:28)
[2023-11-18] MEDS: Milk of Magnesia 30 ML ORAL.SUSP PO (21:29)
[2023-11-18] MEDS: Acetaminophen 325 MG TABLET 650 MG PO (22:25)
[2023-11-19] VITALS (7 sets, daily range): BP systolic 116–153; BP diastolic 58–76; PULSE 67–95; RESP 12–18; TEMP 36.1–37; O2SAT 95–97
[2023-11-19 08:01] LABS: Hematocrit 32.4 % (42.0-52.0); Hemoglobin 11.6 g/dl (14.0-18.0)
[2023-11-19 08:14] LABS: Anion Gap 10 (12-20); Blood Urea Nitrogen 21 mg/dL (9-16); Carbon Dioxide 29 mmol/L (22-29); Chloride 103 mmol/L (96-108); Creatinine Clr Calc Pharmacy 65.7; Estimated Glomerular Filt Rate > 60; Glucose Random 195 mg/dL (60-115); Potassium 5.1 mmol/L (3.3-5.1); Sodium 137 mmol/L (135-145)
[2023-11-19] MEDS: Apixaban 5 MG TABLET PO ×2 (08:25→21:10)
[2023-11-19] MEDS: Acetaminophen 325 MG TABLET 650 MG PO (08:25)
[2023-11-19] MEDS: 0.9 % Sodium Chloride Flush 3 ML SYRINGE IVFLUSH ×3 (08:26→21:13)
[2023-11-19] MEDS: ceFAZolin Sodium/Dextrose,Iso 2 GM/50 ML PIGGYBACK IV (08:26)
[2023-11-19] MEDS: Finasteride 5 MG TABLET PO (08:27)
--- NOTE | 2023-11-19 09:41 | P.PNOP_ITS ---
Subjective Subjective Date of Service: 11/19/23 Interval history: POD 1 s/p Lt hip IMN no overnight events resting in bed, worked with PT denies sob, cp, palpitations Physical Exam Vital Signs: Vital Signs: Last Vital Signs Temp 97.5 F 11/19/23 08:00 Pulse 87 11/19/23 08:00 Resp 14 11/19/23 08:00 BP 137/76 11/19/23 08:00 Pulse Ox 96 11/19/23 08:32 O2 Del Method Room Air 11/19/23 08:32 O2 Flow Rate 2 11/18/23 15:26 BMI result Body Mass Index 23.5 Const: General: cooperative, healthy appearing and no acute distress Resp: Effort & Inspection: normal respiratory effort and able to speak in complete sentences Cardio: Rate: regular rate Peripheral pulses: Peripheral pulses 2+ throughout GI: Palpation (GI): Soft to palpation Skin: General skin exam: no rashes or lesions noted Extrem: Other: bandage clean dry and intact. Bill intact. No erythema or effusion. Calf supple nontender. Neurovascularly intact. Procedures Date of Service Date of Service: 11/19/23 Progress Note: A&P Assessment and plan (1) Closed intertrochanteric fracture of left femur: Status: Acute Assessment and Plan: * Continue pain mgmnt * Resume eliquis * begin PT /OT for LT hip IMN wbat * Dispo planning-Pending PT eval, pain mgmnt Time Spent With Patient Time: Total time managing care of this patient today ____ minutes. Quality Stroke Does the patient have a stroke diagnosis?: No VTE Prior VTE?: No VTE Risk Level:: Surgical - very high VTE Device Contraindication: Treatment Not Indicated VTE Drug Contraindication: N/A - Med Ordered
--- NOTE | 2023-11-19 10:33 | HO.POSTANES ---
Post Anesthesia Evaluation Post Anesthesia Evaluation Date of Service: 11/19/23 Vital Signs: Vital Signs Temp Pulse Resp BP Pulse Ox O2 Del Method 11/19/23 08:32 96 Room Air 11/19/23 08:00 97.5 F 87 14 137/76 96 Room Air 11/19/23 03:24 97.0 F 75 17 128/62 96 Room Air 11/18/23 23:21 97.4 F 82 17 129/60 94 Room Air Anesthesia: General Endotracheal-GETA Mental Status: Awake Pain Control: Satisfactory Nausea/Vomiting: None Hydration: Adequate Anesthesia-Related Issues: No Anes. Related Issues
--- NOTE | 2023-11-19 10:39 | P.PNIM_ITS ---
Subjective Subjective Date of Service: 11/19/23 Interval History: f/u on hip fracture pain is controlled surgery done yesterday pain controlled Review of Systems left hip pain with movment Physical Exam 2 Vital Signs: Vital Signs: Last Vital Signs Temp 97.5 F 11/19/23 08:00 Pulse 87 11/19/23 08:00 Resp 14 11/19/23 08:00 BP 137/76 11/19/23 08:00 Pulse Ox 96 11/19/23 08:32 O2 Del Method Room Air 11/19/23 08:32 O2 Flow Rate 2 11/18/23 15:26 BMI result Body Mass Index 23.5 Objective Data Active Medications Acetaminophen (Acetaminophen 325 Mg Tablet) 650 mg PO Q6H PRN PRN Reason: Pain, Mild (Pain Scale 1-3), fever or headache Last Admin: 11/19/23 08:25 Dose: 650 mg Documented By: KATY Acetaminophen (Acetaminophen 325 Mg Tablet) 650 mg PO Q6H PRN PRN Reason: Pain, Mild (Pain Scale 1-3), fever or headache Al Hydroxide/Mg Hydroxide (Magnesium Hydrox/Alum Hydrox 30 Ml Oral.Susp) 30 ml PO Q4H PRN PRN Reason: Heartburn Apixaban (Apixaban 5 Mg Tablet) 5 mg PO BID [facility] Last Admin: 11/19/23 08:25 Dose: 5 mg Documented By: KATY Calcium Carbonate (Calcium Carbonate 750 Mg Tab.Chew) 750 mg PO Q4H PRN PRN Reason: Heartburn Docusate Sodium (Docusate Sodium 100 Mg Capsule) 100 mg PO BID [facility] Finasteride (Finasteride 5 Mg Tablet) 5 mg PO DAILY [facility] Last Admin: 11/19/23 08:27 Dose: 5 mg Documented By: KATY Lactated Ringer's (Lr) 1,000 mls @ 50 mls/hr IVCONT .Q20H [facility] Last Admin: 11/19/23 02:48 Dose: Not Given Documented By: PINO Non-Admin Reason: medication discontinued per provider Gerri Cefazolin Sodium/Dextrose (Ancef) 2 gm in 50 mls @ 100 mls/hr IV Q8H [facility] Stop: 11/19/23 16:29 Last Infusion: 11/19/23 09:12 Dose: Infused Documented By: MAKENNA Magnesium Hydroxide (Milk Of Magnesia 30 Ml Oral.Susp) 30 ml PO DAILY PRN PRN Reason: Constipation Last Admin: 11/18/23 21:29 Dose: 30 ml Documented By: MELVA Magnesium Hydroxide (Milk Of Magnesia 30 Ml Oral.Susp) 30 ml PO DAILY PRN PRN Reason: Constipation Melatonin (Melatonin 3 Mg Tablet) 6 mg PO BEDTIME PRN PRN Reason: Insomnia Morphine Sulfate (Morphine Sulfate 4 Mg/Ml Cartridge) 2 mg IVPUSH Q4H PRN; Protocol PRN Reason: Pain, Severe (Pain Scale 7-10) Last Admin: 11/17/23 23:09 Dose: 2 mg Documented By: MELVA Pt Own (Memantine Er (14 Mg)) 14 mg PO BEDTIME [facility] Last Admin: 11/18/23 20:16 Dose: 14 mg Documented By: PINO Ondansetron HCl (Ondansetron Hcl 4 Mg/2 Ml Vial) 4 mg IVPUSH Q8H PRN PRN Reason: Nausea and Vomiting Polyethylene Glycol (Polyethylene Glycol 3350 17 Gm Powd.Pack) 17 gm PO DAILY PRN PRN Reason: Constipation Last Admin: 11/18/23 21:28 Dose: 17 gm Documented By: MELVA Sodium Chloride (0.9 % Sodium Chloride Flush 3 Ml Syringe) 3 ml IVFLUSH [facility] Last Admin: 11/19/23 08:26 Dose: 3 ml Documented By: MARTITAIH Labs 11/19/23 07:49 11/19/23 07:49 Labs: Laboratory Results - last 24 hr 11/19/23 07:49 Anion Gap 10 L Estim Creat Clear Calc 65.7 Estimated GFR > 60 Random Glucose 195 H Calcium 8.0 L Assessment and Plan (1) Closed intertrochanteric fracture of left femur: Status: Acute (2) Chronic anticoagulation: Status: Acute (3) Left leg DVT: Status: Acute Plan 78/m with h/o DVT on xarelto here with accidental fall resulting in left hip fracture Left hip fracture d/t accidental fall -s/p ORIF on 11/17 -morphine for pain - eliquis as ordered by surgery -pt recommends STR h/o Left leg DVT--on eliquis -eliquis restarted mild intermittent asthma- no exacerbation -inhaler Probable dense perforating vessels near the vertex and falx. Petechial bleed is considered less likely. MRI advised for further evaluation. -MRI of brain no acute finding Consitpation--bowel regimen dvt compression device, resume xarelto after surgery, lovenox full code Quality Stroke Does the patient have a stroke diagnosis?: No VTE Prior VTE?: No VTE Risk Level:: Surgical - very high VTE Device Contraindication: Treatment Not Indicated VTE Drug Contraindication: N/A - Med Ordered
[2023-11-19] MEDS: Docusate Sodium 100 MG CAPSULE PO ×2 (13:13→21:10)
[2023-11-19] MEDS: Milk of Magnesia 30 ML ORAL.SUSP PO (13:13)
[2023-11-19] MEDS: oxyCODONE HCl Immed Release 5 MG TABLET PO (17:12)
[2023-11-20 04:00] VITALS: BP 130/61; PULSE 71; RESP 16; TEMP 36.3; O2SAT 97
[2023-11-20 07:14] LABS: Hematocrit 34.1 % (42.0-52.0); Hemoglobin 11.7 g/dl (14.0-18.0); Mean Corpuscular HGB Conc 34.3 g/dl (31.0-36.0); Mean Corpuscular Hemoglobin 31.2 pg (27.0-33.0); Mean Corpuscular Volume 90.9 fL (80.0-98.0); Mean Platelet Volume 10.5 fL (9.4-12.4); Platelet Count 202 X10*3/uL (160-400); Red Blood Count 3.75 X10*6/uL (4.60-5.80); Red Cell Distribution Width 12.9 % (11.0-16.0); White Blood Count 11.9 X10*3/uL (4.8-10.8)
[2023-11-20 08:00] VITALS: BP 138/69; PULSE 78; RESP 12; TEMP 36.7; O2SAT 97
[2023-11-20] MEDS: Apixaban 5 MG TABLET PO ×2 (09:29→20:28)
[2023-11-20] MEDS: Docusate Sodium 100 MG CAPSULE PO ×2 (09:29→20:28)
[2023-11-20] MEDS: Finasteride 5 MG TABLET PO (09:29)
[2023-11-20] MEDS: polyethylene glycoL 3350 17 GM POWD.PACK PO (09:32)
[2023-11-20] MEDS: 0.9 % Sodium Chloride Flush 3 ML SYRINGE IVFLUSH ×3 (09:33→20:30)
--- NOTE | 2023-11-20 09:52 | P.PNIM_ITS ---
Subjective Subjective Date of Service: 11/20/23 Interval History: f/u on hip fracture pain is controlled Physical Exam 2 Vital Signs: Vital Signs: Last Vital Signs Temp 98.1 F 11/20/23 08:00 Pulse 78 11/20/23 08:00 Resp 12 11/20/23 08:00 BP 138/69 11/20/23 08:00 Pulse Ox 97 11/20/23 08:00 O2 Del Method Room Air 11/20/23 08:00 O2 Flow Rate 2 11/18/23 15:26 BMI result Body Mass Index 23.5 Const: Other: General: AO X 3, no acute distress Resp: CTA bilateral CVS: S1,S2,RRR GI: +BS, NT, no distention Skin: No rash MSK: surgery sitge d/c/i Neuro: motor grossly intact Psych: appropriate affect Objective Data Active Medications Acetaminophen (Acetaminophen 325 Mg Tablet) 650 mg PO Q6H PRN PRN Reason: Pain, Mild (Pain Scale 1-3), fever or headache Last Admin: 11/19/23 08:25 Dose: 650 mg Documented By: KATY Acetaminophen (Acetaminophen 325 Mg Tablet) 650 mg PO Q6H PRN PRN Reason: Pain, Mild (Pain Scale 1-3), fever or headache Al Hydroxide/Mg Hydroxide (Magnesium Hydrox/Alum Hydrox 30 Ml Oral.Susp) 30 ml PO Q4H PRN PRN Reason: Heartburn Apixaban (Apixaban 5 Mg Tablet) 5 mg PO BID [facility] Last Admin: 11/20/23 09:29 Dose: 5 mg Documented By: KRISH Calcium Carbonate (Calcium Carbonate 750 Mg Tab.Chew) 750 mg PO Q4H PRN PRN Reason: Heartburn Docusate Sodium (Docusate Sodium 100 Mg Capsule) 100 mg PO BID [facility] Last Admin: 11/20/23 09:29 Dose: 100 mg Documented By: KRISH Finasteride (Finasteride 5 Mg Tablet) 5 mg PO DAILY [facility] Last Admin: 11/20/23 09:29 Dose: 5 mg Documented By: KRISH Magnesium Hydroxide (Milk Of Magnesia 30 Ml Oral.Susp) 30 ml PO DAILY PRN PRN Reason: Constipation Last Admin: 11/19/23 13:13 Dose: 30 ml Documented By: KATY Magnesium Hydroxide (Milk Of Magnesia 30 Ml Oral.Susp) 30 ml PO DAILY PRN PRN Reason: Constipation Melatonin (Melatonin 3 Mg Tablet) 6 mg PO BEDTIME PRN PRN Reason: Insomnia Morphine Sulfate (Morphine Sulfate 4 Mg/Ml Cartridge) 2 mg IVPUSH Q4H PRN; Protocol PRN Reason: Pain, Severe (Pain Scale 7-10) Last Admin: 11/17/23 23:09 Dose: 2 mg Documented By: MELVA Pt Own (Memantine Er (14 Mg)) 14 mg PO BEDTIME [facility] Last Admin: 11/19/23 21:10 Dose: 14 mg Documented By: PINO Ondansetron HCl (Ondansetron Hcl 4 Mg/2 Ml Vial) 4 mg IVPUSH Q8H PRN PRN Reason: Nausea and Vomiting Oxycodone HCl (Oxycodone Hcl Immed Release 5 Mg Tablet) 5 mg PO Q6H PRN PRN Reason: Pain, Moderate(Pain Scale 4-6) Last Admin: 11/19/23 17:12 Dose: 5 mg Documented By: KATY Polyethylene Glycol (Polyethylene Glycol 3350 17 Gm Powd.Pack) 17 gm PO DAILY PRN PRN Reason: Constipation Last Admin: 11/20/23 09:32 Dose: 17 gm Documented By: KRISH Sodium Chloride (0.9 % Sodium Chloride Flush 3 Ml Syringe) [place] Last Admin: 11/20/23 09:33 Dose: 3 ml Documented By: KRISH Labs 11/20/23 05:28 11/19/23 07:49 Labs: Laboratory Results - last 24 hr 11/20/23 05:28 MCV 90.9 MCH 31.2 MCHC 34.3 RDW 12.9 Plt Count 202 MPV 10.5 Absolute Nucleated RBC 0.000 Nucleated RBC % (auto) 0.0 Assessment and Plan (1) Closed intertrochanteric fracture of left femur: Status: Acute (2) Chronic anticoagulation: Status: Acute (3) Left leg DVT: Status: Acute Plan 78/m with h/o DVT on xarelto here with accidental fall resulting in left hip fracture Left hip fracture d/t accidental fall -s/p ORIF on 11/17 -morphine for pain - eliquis as ordered by surgery -pt recommends STR h/o Left leg DVT--on eliquis -eliquis restarted mild intermittent asthma- no exacerbation -inhaler Probable dense perforating vessels near the vertex and falx. Petechial bleed is considered less likely. MRI advised for further evaluation. -MRI of brain no acute finding Consitpation--bowel regimen dvt compression device, xarelto full code Quality Stroke Does the patient have a stroke diagnosis?: No VTE Prior VTE?: No VTE Risk Level:: Surgical - very high VTE Device Contraindication: Treatment Not Indicated VTE Drug Contraindication: N/A - Med Ordered
[2023-11-20] MEDS: oxyCODONE HCl Immed Release 5 MG TABLET PO (14:34)
[2023-11-20] MEDS: Milk of Magnesia 30 ML ORAL.SUSP PO (14:34)
[2023-11-20 16:12] VITALS: BP 121/63; PULSE 70; RESP 12; TEMP 36.9; O2SAT 96
[2023-11-20 19:45] VITALS: BP 118/59; PULSE 85; RESP 18; TEMP 36.7; O2SAT 96
[2023-11-20 23:25] VITALS: BP 125/60; PULSE 80; RESP 17; TEMP 36.2; O2SAT 96
[2023-11-21 03:16] VITALS: BP 135/68; PULSE 72; RESP 18; TEMP 36.2; O2SAT 97
[2023-11-21 06:30] LABS: Hematocrit 34.4 % (42.0-52.0); Hemoglobin 11.9 g/dl (14.0-18.0); Mean Corpuscular HGB Conc 34.6 g/dl (31.0-36.0); Mean Corpuscular Hemoglobin 31.5 pg (27.0-33.0); Platelet Count 210 X10*3/uL (160-400); Red Blood Count 3.78 X10*6/uL (4.60-5.80); Red Cell Distribution Width 12.8 % (11.0-16.0); White Blood Count 11.7 X10*3/uL (4.8-10.8)
[2023-11-21 07:27] VITALS: BP 131/63; PULSE 64; RESP 16; TEMP 36.3; O2SAT 96
[2023-11-21] MEDS: Finasteride 5 MG TABLET PO (08:05)
[2023-11-21] MEDS: Docusate Sodium 100 MG CAPSULE PO ×2 (08:05→20:07)
[2023-11-21] MEDS: Apixaban 5 MG TABLET PO ×2 (08:05→20:07)
[2023-11-21] MEDS: 0.9 % Sodium Chloride Flush 3 ML SYRINGE IVFLUSH ×2 (08:05→14:56)
--- NOTE | 2023-11-21 08:46 | P.PNOP_ITS ---
Subjective Subjective Date of Service: 11/21/23 Principal diagnosis: left hip pain Interval history: Mr. Mal Sargent is seen resting comfortably in bed this morning with complaints of mild discomfort along the lateral aspect of his left hip. He denies any fevers or chills, shortness of breath or chest pain. He has been weight-bearing as tolerated on his left lower extremity. Physical Exam Vital Signs: Vital Signs: Last Vital Signs Temp 97.4 F 11/21/23 07:27 Pulse 64 11/21/23 07:27 Resp 16 11/21/23 07:27 BP 131/63 11/21/23 07:27 Pulse Ox 96 11/21/23 07:27 O2 Del Method Room Air 11/21/23 07:27 O2 Flow Rate 2 11/18/23 15:26 BMI result Body Mass Index 23.5 Extrem: Other: Left hip examination shows that the surgical dressing is clean, dry and intact, normal sensation to light touch, good capillary refill Procedures Date of Service Date of Service: 11/21/23 Progress Note: A&P Assessment and plan (1) Closed intertrochanteric fracture of left femur: Status: Acute Assessment and Plan: Mr. Mal Sargent continues to do well after undergoing left hip gamma nail placement on 11/18/2023. He can continue weight-bearing as tolerated. 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 The patient is stable at present. Time Spent With Patient Time: Total time managing care of this patient today 10 minutes. Quality Stroke Does the patient have a stroke diagnosis?: No VTE Prior VTE?: No VTE Risk Level:: Surgical - very high VTE Device Contraindication: Treatment Not Indicated VTE Drug Contraindication: N/A - Med Ordered
--- NOTE | 2023-11-21 10:23 | P.PNIM_ITS ---
Subjective Subjective Date of Service: 11/21/23 Interval History: f/u on hip fracture doing well, pain is controlled Physical Exam 2 Vital Signs: Vital Signs: Last Vital Signs Temp 97.4 F 11/21/23 07:27 Pulse 64 11/21/23 07:27 Resp 16 11/21/23 07:27 BP 131/63 11/21/23 07:27 Pulse Ox 96 11/21/23 07:27 O2 Del Method Room Air 11/21/23 07:27 O2 Flow Rate 2 11/18/23 15:26 BMI result Body Mass Index 23.5 Const: Other: General: AO X 3, no acute distress Resp: CTA bilateral CVS: S1,S2,RRR GI: +BS, NT, no distention Skin: No rash MSK: surgery sitge d/c/i Neuro: motor grossly intact Psych: appropriate affect Objective Data Active Medications Acetaminophen (Acetaminophen 325 Mg Tablet) 650 mg PO Q6H PRN PRN Reason: Pain, Mild (Pain Scale 1-3), fever or headache Last Admin: 11/19/23 08:25 Dose: 650 mg Documented By: KATY Acetaminophen (Acetaminophen 325 Mg Tablet) 650 mg PO Q6H PRN PRN Reason: Pain, Mild (Pain Scale 1-3), fever or headache Al Hydroxide/Mg Hydroxide (Magnesium Hydrox/Alum Hydrox 30 Ml Oral.Susp) 30 ml PO Q4H PRN PRN Reason: Heartburn Apixaban (Apixaban 5 Mg Tablet) 5 mg PO BID [facility] Last Admin: 11/21/23 08:05 Dose: 5 mg Documented By: MOE Calcium Carbonate (Calcium Carbonate 750 Mg Tab.Chew) 750 mg PO Q4H PRN PRN Reason: Heartburn Docusate Sodium (Docusate Sodium 100 Mg Capsule) 100 mg PO BID [facility] Last Admin: 11/21/23 08:05 Dose: 100 mg Documented By: MOE Finasteride (Finasteride 5 Mg Tablet) 5 mg PO DAILY [facility] Last Admin: 11/21/23 08:05 Dose: 5 mg Documented By: MOE Magnesium Hydroxide (Milk Of Magnesia 30 Ml Oral.Susp) 30 ml PO DAILY PRN PRN Reason: Constipation Last Admin: 11/20/23 14:34 Dose: 30 ml Documented By: KRISH Magnesium Hydroxide (Milk Of Magnesia 30 Ml Oral.Susp) 30 ml PO DAILY PRN PRN Reason: Constipation Melatonin (Melatonin 3 Mg Tablet) 6 mg PO BEDTIME PRN PRN Reason: Insomnia Morphine Sulfate (Morphine Sulfate 4 Mg/Ml Cartridge) 2 mg IVPUSH Q4H PRN; Protocol PRN Reason: Pain, Severe (Pain Scale 7-10) Last Admin: 11/17/23 23:09 Dose: 2 mg Documented By: MELVA Pt Own (Memantine Er (14 Mg)) 14 mg PO BEDTIME [facility] Last Admin: 11/20/23 20:29 Dose: 14 mg Documented By: PINO Ondansetron HCl (Ondansetron Hcl 4 Mg/2 Ml Vial) 4 mg IVPUSH Q8H PRN PRN Reason: Nausea and Vomiting Oxycodone HCl (Oxycodone Hcl Immed Release 5 Mg Tablet) 5 mg PO Q6H PRN PRN Reason: Pain, Moderate(Pain Scale 4-6) Last Admin: 11/20/23 14:34 Dose: 5 mg Documented By: KRISH Polyethylene Glycol (Polyethylene Glycol 3350 17 Gm Powd.Pack) 17 gm PO DAILY PRN PRN Reason: Constipation Last Admin: 11/20/23 09:32 Dose: 17 gm Documented By: KRISH Sodium Chloride (0.9 % Sodium Chloride Flush 3 Ml Syringe) 3 ml IVFLUSH [facility] Last Admin: 11/21/23 08:05 Dose: 3 ml Documented By: MOE Labs 11/21/23 06:11 11/19/23 07:49 Labs: Laboratory Results - last 24 hr 11/21/23 06:11 MCV 91.0 MCH 31.5 MCHC 34.6 RDW 12.8 Plt Count 210 MPV 10.0 Absolute Nucleated RBC 0.000 Nucleated RBC % (auto) 0.0 Assessment and Plan (1) Closed intertrochanteric fracture of left femur: Status: Acute Plan 78/m with h/o DVT on xarelto here with accidental fall resulting in left hip fracture Left hip fracture d/t accidental fall -s/p ORIF on 11/17 -morphine for pain and oxy for pain - eliquis for dvt prevention -pt recommends STR -h/h stable 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 Petechial bleed is considered less likely. MRI advised for further evaluation. -MRI of brain no acute finding Consitpation--bowel regimen dvt compression device, eliquis full code To STR when bed availabl Quality Stroke Does the patient have a stroke diagnosis?: No VTE Prior VTE?: No VTE Risk Level:: Surgical - very high VTE Device Contraindication: Treatment Not Indicated VTE Drug Contraindication: N/A - Med Ordered
[2023-11-21 11:23] VITALS: BP 137/65; PULSE 78; RESP 18; TEMP 36.5; O2SAT 96
[2023-11-21] MEDS: Acetaminophen 325 MG TABLET 650 MG PO (14:58)
--- NOTE | 2023-11-21 15:19 | PC.NURSE ---
Daughter at bedside asking for update, this RN and case management updated family and patient, instructions given to access patient portal, family and patient have no further questions at this time, Pt resting in bed comfortably, respirations even and unlabored, call fisher within reach.
[2023-11-21 15:22] VITALS: BP 127/63; PULSE 77; RESP 16; TEMP 36.6; O2SAT 97
[2023-11-21 19:13] VITALS: BP 129/66; PULSE 77; RESP 18; TEMP 36.1; O2SAT 97
[2023-11-21 23:11] VITALS: BP 124/61; PULSE 73; RESP 18; TEMP 36.6; O2SAT 97
[2023-11-22 02:20] VITALS: BP 129/66; PULSE 75; RESP 17; TEMP 36.4; O2SAT 96
[2023-11-22 06:14] LABS: Hematocrit 35.5 % (42.0-52.0); Hemoglobin 12.1 g/dl (14.0-18.0); Mean Corpuscular HGB Conc 34.1 g/dl (31.0-36.0); Mean Corpuscular Hemoglobin 31.3 pg (27.0-33.0); Mean Corpuscular Volume 91.7 fL (80.0-98.0); Mean Platelet Volume 9.7 fL (9.4-12.4); Platelet Count 237 X10*3/uL (160-400); Red Blood Count 3.87 X10*6/uL (4.60-5.80); Red Cell Distribution Width 12.7 % (11.0-16.0); White Blood Count 10.4 X10*3/uL (4.8-10.8)
[2023-11-22 07:35] VITALS: BP 146/75; PULSE 66; RESP 16; TEMP 36.3; O2SAT 97
[2023-11-22] MEDS: Finasteride 5 MG TABLET PO (08:46)
[2023-11-22] MEDS: 0.9 % Sodium Chloride Flush 3 ML SYRINGE IVFLUSH ×3 (08:47→21:04)
[2023-11-22] MEDS: Docusate Sodium 100 MG CAPSULE PO ×2 (08:47→19:51)
[2023-11-22] MEDS: Apixaban 5 MG TABLET PO ×2 (08:47→19:51)
[2023-11-22] MEDS: Acetaminophen 325 MG TABLET 650 MG PO ×2 (08:47→21:03)
[2023-11-22 11:28] VITALS: BP 138/72; PULSE 81; RESP 16; TEMP 36.4; O2SAT 98
--- NOTE | 2023-11-22 15:45 | HO.PM.IMPN ---
Subjective Subjective Date of Service: 11/22/23 Interval History: f/u on hip fracture Review of Systems denies new c/o Physical Exam Vital Signs: Vital Signs: Last Vital Signs Temp 97.6 F 11/22/23 11:28 Pulse 81 11/22/23 11:28 Resp 16 11/22/23 11:28 BP 138/72 11/22/23 11:28 Pulse Ox 98 11/22/23 11:28 O2 Del Method Room Air 11/22/23 11:28 O2 Flow Rate 2 11/18/23 15:26 BMI result Body Mass Index 23.5 General: AO X 3, no acute distress Resp: CTA bilateral CVS: S1,S2,RRR GI: +BS, NT, no distention Skin: No rash MSK: surgery sitge d/c/i Neuro: motor grossly intact Psych: appropriate affect Objective Data Active Medications Acetaminophen (Acetaminophen 325 Mg Tablet) 650 mg PO Q6H PRN PRN Reason: Pain, Mild (Pain Scale 1-3), fever or headache Last Admin: 11/22/23 08:47 Dose: 650 mg Documented By: MOE Acetaminophen (Acetaminophen 325 Mg Tablet) 650 mg PO Q6H PRN PRN Reason: Pain, Mild (Pain Scale 1-3), fever or headache Al Hydroxide/Mg Hydroxide (Magnesium Hydrox/Alum Hydrox 30 Ml Oral.Susp) 30 ml PO Q4H PRN PRN Reason: Heartburn Apixaban (Apixaban 5 Mg Tablet) 5 mg PO BID [facility] Last Admin: 11/22/23 08:47 Dose: 5 mg Documented By: MOE Calcium Carbonate (Calcium Carbonate 750 Mg Tab.Chew) 750 mg PO Q4H PRN PRN Reason: Heartburn Docusate Sodium (Docusate Sodium 100 Mg Capsule) 100 mg PO BID [facility] Last Admin: 11/22/23 08:47 Dose: 100 mg Documented By: MOE Finasteride (Finasteride 5 Mg Tablet) 5 mg PO DAILY [facility] Last Admin: 11/22/23 08:46 Dose: 5 mg Documented By: MOE Magnesium Hydroxide (Milk Of Magnesia 30 Ml Oral.Susp) 30 ml PO DAILY PRN PRN Reason: Constipation Last Admin: 11/20/23 14:34 Dose: 30 ml Documented By: KRISH Magnesium Hydroxide (Milk Of Magnesia 30 Ml Oral.Susp) 30 ml PO DAILY PRN PRN Reason: Constipation Melatonin (Melatonin 3 Mg Tablet) 6 mg PO BEDTIME PRN PRN Reason: Insomnia Morphine Sulfate (Morphine Sulfate 4 Mg/Ml Cartridge) 2 mg IVPUSH Q4H PRN; Protocol PRN Reason: Pain, Severe (Pain Scale 7-10) Last Admin: 11/17/23 23:09 Dose: 2 mg Documented By: MELVA Pt Own (Memantine Er (14 Mg)) 14 mg PO BEDTIME [facility] Last Admin: 11/21/23 20:07 Dose: 14 mg Documented By: JASS Ondansetron HCl (Ondansetron Hcl 4 Mg/2 Ml Vial) 4 mg IVPUSH Q8H PRN PRN Reason: Nausea and Vomiting Oxycodone HCl (Oxycodone Hcl Immed Release 5 Mg Tablet) 5 mg PO Q6H PRN PRN Reason: Pain, Moderate(Pain Scale 4-6) Last Admin: 11/20/23 14:34 Dose: 5 mg Documented By: KRISH Polyethylene Glycol (Polyethylene Glycol 3350 17 Gm Powd.Pack) 17 gm PO DAILY PRN PRN Reason: Constipation Last Admin: 11/20/23 09:32 Dose: 17 gm Documented By: KRISH Sodium Chloride (0.9 % Sodium Chloride Flush 3 Ml Syringe) [facility] Last Admin: 11/22/23 08:47 Dose: 3 ml Documented By: MOE Labs 11/22/23 05:38 11/19/23 07:49 Labs: Laboratory Results - last 24 hr 11/22/23 05:38 MCV 91.7 MCH 31.3 MCHC 34.1 RDW 12.7 Plt Count 237 MPV 9.7 Absolute Nucleated RBC 0.000 Nucleated RBC % (auto) 0.0 Assessment and Plan (1) Closed intertrochanteric fracture of left femur: Status: Acute Plan 78/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 Petechial bleed is considered less likely. MRI advised for further evaluation. -MRI of brain no acute finding Consitpation--bowel regimen dvt compression device, eliquis full code dispo/ need for ongoing hos:To STR when bed available Quality Stroke Does the patient have a stroke diagnosis?: No VTE Prior VTE?: No VTE Risk Level:: Surgical - very high VTE Device Contraindication: Treatment Not Indicated VTE Drug Contraindication: N/A - Med Ordered
[2023-11-22 16:00] VITALS: BP 130/69; PULSE 96; RESP 18; TEMP 36; O2SAT 96
--- NOTE | 2023-11-22 16:13 | MHC.CM.PN ---
FREDR[facility] AT [facility] INQUIRING. CLINICALS SENT
[2023-11-22 19:19] VITALS: BP 127/75; PULSE 90; RESP 18; TEMP 36.1; O2SAT 96
[2023-11-22 23:35] VITALS: BP 132/68; PULSE 78; RESP 20; TEMP 36.2; O2SAT 95
[2023-11-23 03:07] VITALS: BP 113/62; PULSE 68; RESP 20; TEMP 36.2; O2SAT 94
[2023-11-23 06:26] LABS: Hematocrit 35.8 % (42.0-52.0); Hemoglobin 12.2 g/dl (14.0-18.0); Mean Corpuscular HGB Conc 34.1 g/dl (31.0-36.0); Mean Corpuscular Hemoglobin 30.9 pg (27.0-33.0); Mean Corpuscular Volume 90.6 fL (80.0-98.0); Platelet Count 251 X10*3/uL (160-400); Red Blood Count 3.95 X10*6/uL (4.60-5.80); Red Cell Distribution Width 12.5 % (11.0-16.0); White Blood Count 9.7 X10*3/uL (4.8-10.8)
[2023-11-23 07:40] VITALS: BP 124/63; PULSE 65; RESP 18; TEMP 36.1; O2SAT 94
[2023-11-23] MEDS: 0.9 % Sodium Chloride Flush 3 ML SYRINGE IVFLUSH ×2 (08:47→17:44)
[2023-11-23] MEDS: Finasteride 5 MG TABLET PO (08:48)
[2023-11-23] MEDS: Docusate Sodium 100 MG CAPSULE PO ×2 (08:48→20:02)
[2023-11-23] MEDS: Apixaban 5 MG TABLET PO ×2 (08:48→20:02)
[2023-11-23 12:00] VITALS: BP 126/72; PULSE 75; RESP 18; TEMP 36.1; O2SAT 97
--- NOTE | 2023-11-23 13:32 | MHC.CM.PN ---
Per MD rounds patient medically cleared for dc to STR. Patient has accepted a bed at [facility]. Facility awaiting response from worker's comp re: auth. CM will continue to follow.
--- NOTE | 2023-11-23 13:56 | P.PNIM_ITS ---
Subjective Subjective Date of Service: 11/23/23 Interval History: f/u on hip fracture Review of Systems denies new c/o Physical Exam 2 Vital Signs: Vital Signs: Last Vital Signs Temp 97.0 F 11/23/23 12:00 Pulse 75 11/23/23 12:00 Resp 18 11/23/23 12:00 BP 126/72 11/23/23 12:00 Pulse Ox 97 11/23/23 12:00 O2 Del Method Room Air 11/23/23 12:00 O2 Flow Rate 2 11/18/23 15:26 BMI result Body Mass Index 23.5 General: AO X 3, no acute distress Resp: CTA bilateral CVS: S1,S2,RRR GI: +BS, NT, no distention Skin: No rash MSK: surgery sitge d/c/i Neuro: motor grossly intact Psych: appropriate affect Objective Data Active Medications Acetaminophen (Acetaminophen 325 Mg Tablet) 650 mg PO Q6H PRN PRN Reason: Pain, Mild (Pain Scale 1-3), fever or headache Last Admin: 11/22/23 21:03 Dose: 650 mg Documented By: JASS Acetaminophen (Acetaminophen 325 Mg Tablet) 650 mg PO Q6H PRN PRN Reason: Pain, Mild (Pain Scale 1-3), fever or headache Al Hydroxide/Mg Hydroxide (Magnesium Hydrox/Alum Hydrox 30 Ml Oral.Susp) 30 ml PO Q4H PRN PRN Reason: Heartburn Apixaban (Apixaban 5 Mg Tablet) 5 mg PO BID [facility] Last Admin: 11/23/23 08:48 Dose: 5 mg Documented By: CITLALY Calcium Carbonate (Calcium Carbonate 750 Mg Tab.Chew) 750 mg PO Q4H PRN PRN Reason: Heartburn Docusate Sodium (Docusate Sodium 100 Mg Capsule) 100 mg PO BID [facility] Last Admin: 11/23/23 08:48 Dose: 100 mg Documented By: CITLALY Finasteride (Finasteride 5 Mg Tablet) 5 mg PO DAILY [facility] Last Admin: 11/23/23 08:48 Dose: 5 mg Documented By: CITLALY Magnesium Hydroxide (Milk Of Magnesia 30 Ml Oral.Susp) 30 ml PO DAILY PRN PRN Reason: Constipation Last Admin: 11/20/23 14:34 Dose: 30 ml Documented By: KRISH Magnesium Hydroxide (Milk Of Magnesia 30 Ml Oral.Susp) 30 ml PO DAILY PRN PRN Reason: Constipation Melatonin (Melatonin 3 Mg Tablet) 6 mg PO BEDTIME PRN PRN Reason: Insomnia Morphine Sulfate (Morphine Sulfate 4 Mg/Ml Cartridge) 2 mg IVPUSH Q4H PRN; Protocol PRN Reason: Pain, Severe (Pain Scale 7-10) Last Admin: 11/17/23 23:09 Dose: 2 mg Documented By: MELVA Pt Own (Memantine Er (14 Mg)) 14 mg PO BEDTIME [facility] Last Admin: 11/22/23 19:51 Dose: 14 mg Documented By: JASS Ondansetron HCl (Ondansetron Hcl 4 Mg/2 Ml Vial) 4 mg IVPUSH Q8H PRN PRN Reason: Nausea and Vomiting Oxycodone HCl (Oxycodone Hcl Immed Release 5 Mg Tablet) 5 mg PO Q6H PRN PRN Reason: Pain, Moderate(Pain Scale 4-6) Last Admin: 11/20/23 14:34 Dose: 5 mg Documented By: KRISH Polyethylene Glycol (Polyethylene Glycol 3350 17 Gm Powd.Pack) 17 gm PO DAILY PRN PRN Reason: Constipation Last Admin: 11/20/23 09:32 Dose: 17 gm Documented By: KRISH Sodium Chloride (0.9 % Sodium Chloride Flush 3 Ml Syringe) 3 ml IVFLUSH [facility] Last Admin: 11/23/23 08:47 Dose: 3 ml Documented By: CITLALY Labs 11/23/23 06:17 11/19/23 07:49 Labs: Laboratory Results - last 24 hr 11/23/23 06:17 MCV 90.6 MCH 30.9 MCHC 34.1 RDW 12.5 Plt Count 251 MPV 10.0 Absolute Nucleated RBC 0.000 Nucleated RBC % (auto) 0.0 Assessment and Plan (1) Closed intertrochanteric fracture of left femur: Status: Acute Plan 78/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 Petechial bleed is considered less likely. MRI advised for further evaluation. -MRI of brain no acute finding Consitpation--bowel regimen dvt compression device, eliquis full code dispo/ need for ongoing hos:To STR when bed available Quality Stroke Does the patient have a stroke diagnosis?: No VTE Prior VTE?: No VTE Risk Level:: Surgical - very high VTE Device Contraindication: Treatment Not Indicated VTE Drug Contraindication: N/A - Med Ordered
[2023-11-23 15:37] VITALS: BP 131/75; PULSE 80; RESP 18; TEMP 36.4; O2SAT 97
[2023-11-23 19:44] VITALS: BP 116/60; PULSE 80; RESP 18; TEMP 36.4; O2SAT 97
[2023-11-23] MEDS: Acetaminophen 325 MG TABLET 650 MG PO (20:02)
[2023-11-24] VITALS: BP 132/63; PULSE 80; RESP 18; TEMP 36.1; O2SAT 97
[2023-11-24 03:32] VITALS: BP 129/64; PULSE 67; RESP 16; TEMP 36.3; O2SAT 97
[2023-11-24 07:30] VITALS: BP 136/67; PULSE 71; RESP 18; TEMP 36.6; O2SAT 97
[2023-11-24] MEDS: Finasteride 5 MG TABLET PO (09:03)
[2023-11-24] MEDS: Apixaban 5 MG TABLET PO ×2 (09:03→20:37)
[2023-11-24] MEDS: Docusate Sodium 100 MG CAPSULE PO ×2 (09:03→20:37)
[2023-11-24] MEDS: 0.9 % Sodium Chloride Flush 3 ML SYRINGE IVFLUSH ×3 (09:03→20:38)
[2023-11-24] MEDS: Acetaminophen 325 MG TABLET 650 MG PO ×2 (10:27→19:40)
[2023-11-24 11:32] VITALS: BP 130/63; PULSE 79; RESP 18; TEMP 36.1; O2SAT 98
--- NOTE | 2023-11-24 14:03 | MHC.CM.PN ---
Addendum entered by Luz Marina Mcgregor RN 11/25/23 12:08: Claim # [id number] Addendum entered by Luz Marina Mcgregor RN 11/24/23 14:35: Patient completed HCP naming agents: 1) daughter Lauren and 2) Della. Copy provided to patient and copy placed in chart. Original Note: Patient medically cleared for dc to STR. Has accepted a bed at [facility]. Awaiting auth from workers comp. [facility] faxed documentation this morning, workers comp confirms they have received and expects to have an answer today. Adjustor: Skinny Ahmadi [phone] Biochemist: Da Smith [phone] Nurse CM: Florecita [phone]
--- NOTE | 2023-11-24 14:49 | HO.PM.IMPN ---
Subjective Subjective Date of Service: 11/24/23 Interval History: f/u on hip fracture Review of Systems denies new c/o Physical Exam Vital Signs: Vital Signs: Last Vital Signs Temp 96.9 F 11/24/23 11:32 Pulse 79 11/24/23 11:32 Resp 18 11/24/23 11:32 BP 130/63 11/24/23 11:32 Pulse Ox 98 11/24/23 11:32 O2 Del Method Room Air 11/24/23 11:32 O2 Flow Rate 2 11/18/23 15:26 BMI result Body Mass Index 23.5 General: AO X 3, no acute distress Resp: CTA bilateral CVS: S1,S2,RRR GI: +BS, NT, no distention Skin: No rash MSK: surgery sitge d/c/i Neuro: motor grossly intact Psych: appropriate affect Objective Data Active Medications Acetaminophen (Acetaminophen 325 Mg Tablet) 650 mg PO Q6H PRN PRN Reason: Pain, Mild (Pain Scale 1-3), fever or headache Last Admin: 11/24/23 10:27 Dose: 650 mg Documented By: CITLALY Acetaminophen (Acetaminophen 325 Mg Tablet) 650 mg PO Q6H PRN PRN Reason: Pain, Mild (Pain Scale 1-3), fever or headache Al Hydroxide/Mg Hydroxide (Magnesium Hydrox/Alum Hydrox 30 Ml Oral.Susp) 30 ml PO Q4H PRN PRN Reason: Heartburn Apixaban (Apixaban 5 Mg Tablet) 5 mg PO BID [facility] Last Admin: 11/24/23 09:03 Dose: 5 mg Documented By: CITLALY Calcium Carbonate (Calcium Carbonate 750 Mg Tab.Chew) 750 mg PO Q4H PRN PRN Reason: Heartburn Docusate Sodium (Docusate Sodium 100 Mg Capsule) 100 mg PO BID [facility] Last Admin: 11/24/23 09:03 Dose: 100 mg Documented By: CITLALY Finasteride (Finasteride 5 Mg Tablet) 5 mg PO DAILY [facility] Last Admin: 11/24/23 09:03 Dose: 5 mg Documented By: CITLALY Magnesium Hydroxide (Milk Of Magnesia 30 Ml Oral.Susp) 30 ml PO DAILY PRN PRN Reason: Constipation Last Admin: 11/20/23 14:34 Dose: 30 ml Documented By: KRISH Magnesium Hydroxide (Milk Of Magnesia 30 Ml Oral.Susp) 30 ml PO DAILY PRN PRN Reason: Constipation Melatonin (Melatonin 3 Mg Tablet) 6 mg PO BEDTIME PRN PRN Reason: Insomnia Morphine Sulfate (Morphine Sulfate 4 Mg/Ml Cartridge) 2 mg IVPUSH Q4H PRN; Protocol PRN Reason: Pain, Severe (Pain Scale 7-10) Last Admin: 11/17/23 23:09 Dose: 2 mg Documented By: MELVA Pt Own (Memantine Er (14 Mg)) 14 mg PO BEDTIME [facility] Last Admin: 11/23/23 20:02 Dose: 14 mg Documented By: PINO Ondansetron HCl (Ondansetron Hcl 4 Mg/2 Ml Vial) 4 mg IVPUSH Q8H PRN PRN Reason: Nausea and Vomiting Polyethylene Glycol (Polyethylene Glycol 3350 17 Gm Powd.Pack) 17 gm PO DAILY PRN PRN Reason: Constipation Last Admin: 11/20/23 09:32 Dose: 17 gm Documented By: KRISH Sodium Chloride (0.9 % Sodium Chloride Flush 3 Ml Syringe) 3 ml IVFLUSH QSHIFT [facility] Last Admin: 11/24/23 09:03 Dose: 3 ml Documented By: DOBROB Labs 11/23/23 06:17 11/19/23 07:49 Assessment and Plan (1) Closed intertrochanteric fracture of left femur: Status: Acute Plan 78/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 Petechial bleed is considered less likely. MRI advised for further evaluation. -MRI of brain no acute finding Consitpation--bowel regimen dvt compression device, eliquis full code dispo/ need for ongoing hos:To STR when bed available Quality Stroke Does the patient have a stroke diagnosis?: No VTE Prior VTE?: No VTE Risk Level:: Surgical - very high VTE Device Contraindication: Treatment Not Indicated VTE Drug Contraindication: N/A - Med Ordered
[2023-11-24 15:17] VITALS: BP 130/66; PULSE 75; RESP 18; TEMP 36.2; O2SAT 97
[2023-11-24 20:00] VITALS: BP 143/73; PULSE 84; RESP 16; TEMP 36.6; O2SAT 97
[2023-11-25] VITALS: BP 121/69; PULSE 79; RESP 16; TEMP 36.3; O2SAT 98
[2023-11-25 04:00] VITALS: BP 133/72; PULSE 80; RESP 16; TEMP 36.3; O2SAT 97
[2023-11-25 07:47] VITALS: BP 127/67; PULSE 77; RESP 18; TEMP 36.1; O2SAT 96
[2023-11-25] MEDS: Docusate Sodium 100 MG CAPSULE PO (08:00)
[2023-11-25] MEDS: Finasteride 5 MG TABLET PO (08:00)
[2023-11-25] MEDS: Apixaban 5 MG TABLET PO (08:00)
[2023-11-25] MEDS: 0.9 % Sodium Chloride Flush 3 ML SYRINGE IVFLUSH (08:01)
[2023-11-25 09:09] VITALS: BP 127/67; PULSE 77; O2SAT 96
--- NOTE | 2023-11-25 11:30 | PM.DS ---
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 He sustained a moderate to severely comminuted displaced intertrochanteric fracture of the femur. with pain of 6/10 , worst with movment. Hospital course: Patient came to the hospital after accidental fall found to have left hip fracture-s/p ORIF on 11/17, h/h stable, pain control with morphine and oxycodone, also added bowel regimen for constipation: Patient seems to be feeling better, seen by PT recommended rehab, patient will go rehab with p.o. oxycodone limited supply. And bowel regimen. Patient initial CT head showed incidental Probable dense perforating vessels near the vertex and falx. Petechial bleed is considered less likely. Subsequently MRI was done-MRI of brain no acute finding. Plan: Oxycodone p.r.n. for pain. Please see Ortho recommendations in the discharge instructions section. Above management discussed with the patient in detail length, he understand in agreement with the above plan, time spent 40 minute. Time Attestation Total time managing care of this patient today: 40 mintues. Discharge Coordination Time (in mins): 40 min Quality: Safe Use of Opioids Does Pt have an Active Cancer Diagnosis on the Problem List?: No Quality: Stroke Does the patient have a stroke diagnosis?: No Physical Exam Vital Signs: Vital Signs: Last Vital Signs Temp 97.0 F 11/25/23 07:47 Pulse 77 11/25/23 09:09 Resp 18 11/25/23 07:47 BP 127/67 11/25/23 09:09 Pulse Ox 96 11/25/23 09:09 O2 Del Method Room Air 11/25/23 07:47 O2 Flow Rate 2 11/18/23 15:26 BMI result Body Mass Index 23.5 General: AO X 3, no acute distress Resp: CTA bilateral CVS: S1,S2,RRR GI: +BS, NT, no distention Skin: No rash MSK: surgery sitge d/c/i Neuro: motor grossly intact Psych: appropriate affect DS: Data Imaging Chest x-ray: Radiologist's impression: ITS Impressions Head CT 11/15/23 14:45 IMPRESSION: Probable dense perforating vessels near the vertex and falx. Petechial bleed is considered less likely. MRI advised for further evaluation. Electronically signed by: Jeremi Trejo MD 11/15/2023 04:29 PM EDT RP Hip CT 11/15/23 14:45 IMPRESSION: Moderate to severely comminuted displaced intertrochanteric left femur fracture. Electronically signed by: Abimael Becerra MD 11/15/2023 04:19 PM EDT RP Cervical Spine CT 11/15/23 15:13 IMPRESSION: Degenerative changes observed without acute abnormalities noted. Fleischner guidelines were followed. Electronically signed by: Jeremi Trejo MD 11/15/2023 04:25 PM EDT RP Chest X-Ray 11/15/23 15:24 IMPRESSION: Mild bilateral interstitial thickening which can be seen with reactive airways disease, atypical/viral infection or mild edema. 1.8 cm rounded opacity in the right lower paratracheal region. Unclear if this represents a lymph node. Correlation with CT chest can be considered as clinically dictated. Electronically signed by: Stewart Bergeron MD 11/15/2023 04:07 PM EDT RP Brain MRI 11/15/23 19:20 IMPRESSION: No evidence of acute intracranial hemorrhage or other acute intracranial abnormality. Electronically signed by: Blue Alvarado MD 11/15/2023 08:46 PM EDT RP Pelvis X-Ray 11/16/23 07:15 IMPRESSION: Stable left hip fracture. Pelvis intact. Electronically signed by: Jeremi Trejo MD 11/16/2023 08:09 AM EDT RP Guidance Fluoroscopy 11/18/23 08:15 impression: Intraoperative imaging.. Placement of compression screw transfixing intertrochanteric fracture of the hip. Electronically signed by: John Salas MD 11/18/2023 09:21 PM EDT Discharge Plan Discharge Anticipated Discharge Date/Time: 11/24/23 14:46 Patient Disposition: Xfer SNF Discharge Diagnosis: left hip fx Referrals: [facility] [Outside] - 1 Day (short term rehab) Erich Mariano PA [Physician Bioinformaticist] - 2 Weeks (12/02/23 14:00 [facility] Erich Mariano PA) Zeke Herrera III, MD [Primary Care Provider] - 1 Week Discharge Medications: Continued memantine 7 mg capsule,sprinkle,ER 24hr 7 mg PO BEDTIME calcium carbonate [Calcium 600] 600 mg calcium (1,500 mg) Tablet 600 mg PO BID apixaban 5 mg tablet 5 mg PO BID finasteride 5 mg tablet 5 mg PO DAILY 90 Days Qty: 90 1RF Discharge Orders: Discharge Order (Routine); Ordered 11/25/23 Ordered By: Merari Estevez Diet: Advance to usual diet Activity on Discharge: As tolerated Stand Alone Forms: Patient Portal Discharge page Print Language: Tamazight Care Plan Goals: Patient was admitted for left hip fracture after accidental fall status post ORIF, H&H stable, seen by PT recommended rehab. Please see ortho instructions below. Constipation continue bowel regimen. Health Concerns: As above. Plan of Treatment: As above. He also sure I am putting discharge order for disc height at Assessment: Gait training, strengthening, ADLs Continue dvt ppx x6 weeks Keep dressing clean,dry and intact-no showering or tub baths Follow up with Orthopedics in 2 weeks
[2023-11-25 12:00] VITALS: BP 123/62; PULSE 72; RESP 17; TEMP 36.2; O2SAT 98
[2023-11-25 15:38] VITALS: BP 142/67; PULSE 80; RESP 18; TEMP 36.1; O2SAT 98
--- NOTE | 2023-11-25 16:05 | MHC.CM.PN ---
Patient medically cleared for dc to [facility] via BLS at 430 pm. MD SYADA, patient and aware.
== END 2023-11-25 17:15 | disposition skilled nursing facility (03) | DRG 482 ==
LOC: HO.ED 16:48 → HO.EDOVER 18:04 → HO.S3 11-16 08:45
PROVIDERS: Orthopaedic Surgery; Admitting Provider Internal Medicine; Emergency Provider Emergency Medicine; PCP Internal Medicine; Visit Provider Internal Medicine
PROC: 0QS706Z Reposition Left Upper Femur with Intramedullary Internal Fixation Device, Open Approach (ICD-10-PCS; principal; 2023-11-18 07:30)
DX: S72.142A Displaced intertrochanteric fracture of left femur, initial encounter for closed fracture (principal); W19.XXXA Unspecified fall, initial encounter; K59.00 Constipation, unspecified; J45.20 Mild intermittent asthma, uncomplicated; Y92.214 College as the place of occurrence of the external cause; Y99.0 Civilian activity done for income or pay; Z86.718 Personal history of other venous thrombosis and embolism; Z79.01 Long term (current) use of anticoagulants; Z79.899 Other long term (current) drug therapy
CPT/HCPCS: 36415; 70450; 70551; 71045; 72125; 72170; 73700; 80048; 80053; 82947; 85014; 85018; 85025; 85027; 85610; 85730; 86850; 86900; 86901; 93005; 97110; 97116; 97162; 97166; 97530; 97535; 99285; C1713; J0690; J1100; J1650; J2270; J2405; J2704; J3010; J7120

== ENCOUNTER → 2023-11-15 17:56 | Outpatient (BNV) | payer OTHER, MEDICARE, SELFPAY | PROVIDERS: Admitting Provider Internal Medicine; Emergency Provider Emergency Medicine; PCP Internal Medicine; Visit Provider Physician Assistant | DX: S72.142A Displaced intertrochanteric fracture of left femur, initial encounter for closed fracture (principal) | CPT/HCPCS: 27245; 99024; 99222; 99232; 99499 ==

== ENCOUNTER → 2023-11-15 17:56 | Outpatient (BNV) | payer OTHER, MEDICARE, SELFPAY | PROVIDERS: Admitting Provider Internal Medicine; Emergency Provider Emergency Medicine; PCP Internal Medicine; Visit Provider Internal Medicine | DX: S72.142A Displaced intertrochanteric fracture of left femur, initial encounter for closed fracture (principal); Z79.01 Long term (current) use of anticoagulants; I82.402 Acute embolism and thrombosis of unspecified deep veins of left lower extremity | CPT/HCPCS: 99223; 99231; 99232; 99233; 99239 ==

== ENCOUNTER 2023-11-30 13:38 | Outpatient (REF) | payer OTHER, MEDICARE, SELFPAY ==
--- NOTE | ~2023-11-30 | XR_ITS ---
EXAMINATION: XR FEMUR, LEFT CLINICAL INFORMATION: Pain in the left leg. Status post intramedullary nail. COMPARISON: 11/16/2023 TECHNIQUE: AP and lateral views of the left femur were obtained. FINDINGS: A short intramedullary nail is present in the left proximal femur across the comminuted intertrochanteric fracture with a single distal interlocking screw and a femoral neck screw. There is improved alignment of the comminuted intertrochanteric fracture with lateral displacement of the distal shaft fragment by approximately 1 cm. The lesser trochanteric fragments are displaced medially by 1.2 cm. A combination of the greater trochanter. Soft tissues are swollen laterally. Skin maximiliano are present. Bones are osteopenic. No additional fractures are identified. Ankylosis of the left SI joint. Degenerative spondylosis in the lower lumbar spine. [id number] tricompartmental osteoarthritis of the left knee. XR/XR femur LT 2V IMPRESSION: Improved alignment of the comminuted intertrochanteric fracture status post ORIF. Electronically signed by: Isai Parra MD 12/13/2023 11:47 PM EDT
== END 2023-11-30 13:39 | disposition home or self-care (01) ==
LOC: HO.HOSX 13:38
PROVIDERS: PCP Internal Medicine
DX: M79.605 Pain in left leg (principal); S72.142D Displaced intertrochanteric fracture of left femur, subsequent encounter for closed fracture with routine healing
CPT/HCPCS: 73552; 99212

== ENCOUNTER 2023-11-30 14:16 | Outpatient (AMB) | payer OTHER, MEDICARE, SELFPAY ==
--- NOTE | 2023-11-30 14:58 | A.OFFVIS_ITS ---
Intake Visit Reasons: PO-Left hip intertrochanteric fracture DOS 11/18/23 Intake Note: Jn is a 78 year old male who presents today with his and granddaughter post operatively S/P ORIF of left hip intertrochanteric fracture with placement of a short gamma nail DOS: 11/18/2023 w/ Dr Churchill. Patient reports pain with ambulation and if he is laying down too long. Granddaughter has a wedding on Tuesday and they are hoping he can be discharged from facility to be able to attend. He was able to ambulate up 5 steps yesterday grand daughter says and thats all he needs to do to walk up into his home. He is ambulating daily, he has wheel chair but rather walk with walker. He is doing PT and says this is hel ping him, he says he is walking throughout the hallways. Allergies No Known Allergies Allergy (Verified 11/30/23 15:04) HPI HPI PO-Left hip intertrochanteric fracture DOS 11/18/23: Details: Patient is a 78-year-old male who presents for postoperative evaluation status post left hip IM nail placement secondary to intertrochanteric fracture, DOS 11/18/[address] Churchill. The patient reports that he is feeling very well, and only experiences minimal discomfort in his left hip. The patient reports that he has been ambulating quite a bit since discharge from the hospital, and is ambulatory with a walker while in the office today. The patient and his granddaughter inquire if we can order for him to be discharged from his rehab facility due to his good recovery, in time for his granddaughter's wedding this Tuesday. The patient reports that physical therapy has been immensely helpful to him, and he feels he has restored very good function in his left hip. 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 Denies any numbness or tingling in the left lower extremity. No other acute complaints or concerns at this time. [facility] Medical History Kidney stones Chronic anticoagulation Left leg DVT Prostate cancer Elevated PSA Surgical History History of cystoscopy Social History Household Members: Family and Children Housing: House Are you a primary reservoir caretaker to a significant other at home: No Do you presently have visiting nurse or other home services: No Patient Tobacco Use Status: Never used Tobacco Advance Directives Date on File: 11/16/23 service: No Review of Systems Const All systems reviewed & are unremarkable except as noted in HPI and below Physical Exam Extrem Other: On inspection, there is noted to be some very mild erythema present about the maximiliano in the patient's left hip, but no other erythema, edema, ecchymosis noted Incision sites are well approximated, no evidence of dehiscence No drainage or evidence of active infection at this time Patient is nontender to gentle palpation about the incision sites in the lateral left hip Patient is able to actively flex at the left hip Patient is also ambulatory and is able to stand with a walker during exam without difficulty Distal sensation intact Capillary refill brisk Compartments soft, nontender Results Reviewed Results Reviewed: X-rays obtained in the office today and independently reviewed by me, Erich Mariano PA-C, demonstrate well approximated intertrochanteric fracture of left hip with intramedullary nail in place and in satisfactory clinical alignment. Assessment & Plan Assessment & Plan (1) Closed intertrochanteric fracture of left femur: Code(s): S72.142A - Displaced intertrochanteric fracture of left femur, initial encounter for closed fracture Category: Medical Plan Intertrochanteric fracture of left hip status post IM nail placement DOS 11/18/2023 Patient appears to be recovering well postoperatively Patient is educated about the typical recovery course Patient and his family are educated that we do not make the decision as to when he can be discharged from short-term rehab, rather this is up to nursing, case management, and providers at the rehab facility The patient does appear to be recovering very well from his procedure, and seems to have made great improvements with therapy [place] were removed in the office today without difficulty Patient is educated on both the signs and symptoms of infection and potential blood clot in his left leg, and is told that he should either call our office or present to the emergency department if he experiencesthese symptoms Patient is told that he should continue with anticoagulation regimen prescribed while in the hospital Patient is amenable to this plan Patient will follow-up in 4 weeks with repeat x-rays for reassessment, sooner with any acute concerns Orders: Orders XR femur LT 2V Today M79.606 - Pain in leg, unspecified XR hip LT min 2V Today M25.552 - Pain in left hip Coding Level of Care Code Global (83370) Diagnoses Closed intertrochanteric fracture of left femur S72.142A
== END 2023-11-30 15:52 | disposition home or self-care (01) ==
PROVIDERS: PCP Internal Medicine
DX: S72.142A Displaced intertrochanteric fracture of left femur, initial encounter for closed fracture (principal)
CPT/HCPCS: 99024

== ENCOUNTER 2023-12-09 10:41 | Outpatient (REF) | payer OTHER, MEDICARE, SELFPAY ==
[2023-12-09 12:32] LABS: Blood Urea Nitrogen 12 mg/dL (9-16); Estimated Glomerular Filt Rate > 60
== END 2023-12-09 10:42 | disposition home or self-care (01) ==
LOC: HO.LAB 10:41
PROVIDERS: PCP Internal Medicine; Visit Provider Urology
DX: C61 Malignant neoplasm of prostate (principal); Z12.5 Encounter for screening for malignant neoplasm of prostate
CPT/HCPCS: 36415; 82565; 84153; 84520

== ENCOUNTER 2023-12-20 11:43 | Outpatient (AMB) | payer OTHER, MEDICARE, SELFPAY ==
--- NOTE | 2023-12-16 10:05 | A.OFFVIS_ITS ---
Intake Visit Reasons: 6M Follow Up-PSA(set) Intake Note: Patient presents today for a telehealth 6m follow up/PSA Meds- Finasteride Allergies to Antibiotic- No Known Allergies Blood Thinner- Apixaban Juvenile Officer Required: No Allergies No Known Allergies Allergy (Verified 12/16/23 10:06) [facility] Medical History Kidney stones Chronic anticoagulation Left leg DVT Prostate cancer Elevated PSA Surgical History History of cystoscopy Social History Household Members: Family and Children Housing: House Are you a primary childcare worker to a significant other at home: No Do you presently have visiting nurse or other home services: No Patient Tobacco Use Status: Never used Tobacco Advance Directives Date on File: 11/16/23 service: No Coding
--- NOTE | 2023-12-20 11:45 | A.OFFVIS_ITS ---
Intake Visit Reasons: 6M Follow Up-PSA(set) Intake Note: Patient is Present for Telephone Follow Up PSA Urology Med: Finasteride Antibiotic Allergy: None Blood Thinner: Eliquis Recent PSA: 12/09/23 PSA 1.80 Bunch Breaker Required: No Accompanied by: Self / Same As Patient Allergies No Known Allergies Allergy (Verified 12/20/23 11:46) HPI Comments Details: Jn is a pleasant male. He is a patient of Dr. Herrera. He is seen for the following urologic conditions - prostate cancer low volume low-grade disease Telemedicine Evaluation 15 min Consultation Doximity Logan Video attempted PSA remains stable Six-month follow-up PSA Finasteride - cut back to Tuesday/Tuesday/Tuesday Prostate cancer - grade group 1 low volume disease 12/05 Current therapy finasteride and surveillance Prostate cancer diagnosed by Dr. Cagle Pathology at diagnosis 2 cores. Subhash 3 + 3. No more than 10%. PSA at diagnosis 4.6 Family history prostate cancer Current therapy active surveillance - 2nd opinion obtained at [facility] with agreement for course of action PSA - 10/07 3.2, 12/09 2.9, 04/11 2.6, 08/09 2.7, 02/09 2.4, 08/10 2.4, 03/12 3.1, 06/11 1.8, 12/12 1.8 Imaging 06/11 - prostate MRI. 35 g gland. No suspicious lesion PI-RADS 2 or greater shown on imaging Therapeutic plan -above PFSH Medical History Kidney stones Chronic anticoagulation Left leg DVT Prostate cancer Elevated PSA Surgical History History of cystoscopy Social History Household Members: Family and Children Housing: House Are you a primary career development associate to a significant other at home: No Do you presently have visiting nurse or other home services: No Patient Tobacco Use Status: Never used Tobacco Advance Directives Date on File: 11/16/23 service: No Telehealth Telehealth Location of provider rendering services: practice address Location of patient: address on file Patient Identification confirmed using: Name, : Yes Telehealth method: video Patient verbally consented to treatment: Yes Patient verbally consented to billing insurance company: Yes Patient informed of any privacy concerns related to visit: Yes Assessment & Plan Assessment & Plan (1) Prostate cancer: Comment: 11/201617 Grade group 1 low volume Code(s): C61 - Malignant neoplasm of prostate Category: Medical Plan Six-month follow up PSA Orders: Orders Prostate Specific Antigen 6 Months C61 - Malignant neoplasm of prostate Patient Instructions: Imaging studies, laboratory and physical exam results were discussed and reviewed in detail. No major barriers to patient understanding were identified. An opportunity to ask questions regarding the treatment plan was provided. All questions were answered. The patient expressed understanding and agreement with the above treatment plan. The patient is aware they should contact our office by phone for worsening of their current condition or the appearance of new urologic symptoms. Compliance is encouraged with any medications and followup testing that is ordered. It is a privilege to participate in the urologic care of your patient. If you have any questions or concerns regarding treatment for the above conditions, or other urologic issues, please do not hesitate to contact me. The office telephone contact is [phone]. This note is constructed using voice recognition software. While every effort has been made to ensure accuracy police communications dispatcher errors may have been included. Yours sincerely, Dr Johnny Pearson MD, [facility] - Urology Providers of Expert, Compassionate Care for the Genitourinary System Coding Level of Care Code Tele Est Pt Level 3 (35169) Diagnoses Prostate cancer C61
== END 2023-12-20 12:57 | disposition home or self-care (01) ==
LOC: HO.HUSH 11:44
PROVIDERS: PCP Internal Medicine; Visit Provider Urology
DX: C61 Malignant neoplasm of prostate (principal)
CPT/HCPCS: 99213

== ENCOUNTER → 2023-12-20 11:43 | Outpatient (BNVA) | payer OTHER, MEDICARE, SELFPAY | PROVIDERS: PCP Internal Medicine; Visit Provider Urology ==

== ENCOUNTER 2023-12-21 10:45 | Emergency (ER) | payer OTHER, MEDICARE, SELFPAY ==
--- NOTE | ~2023-12-21 | US_ITS ---
EXAMINATION: US TRIPLEX LOWER EXTREMITY, LEFT CLINICAL INFORMATION: Calf pain and swelling COMPARISON: None available. TECHNIQUE: Color-flow triplex imaging with spectral analysis and compression Doppler were performed on the left lower extremity. FINDINGS: Respiratory variation, normal compression and augmented flow are noted throughout the left lower extremity. The visualized common femoral vein, superficial femoral vein, profunda femoral vein, popliteal vein and midcalf peroneal and posterior tibial venous segments show no evidence of deep venous thrombosis. There is no Gibson's cyst. Prominent left inguinal lymph node measuring 1.9 cm. US/US venous duplex LE LT IMPRESSION: No evidence of deep venous thrombosis involving the left lower extremity. Electronically signed by: Lupe Huggins MD 12/21/2023 12:09 PM EDT
[2023-12-21 10:54] VITALS: BP 122/65; PULSE 72; RESP 16; TEMP 37; O2SAT 98; BMI 22.8
--- NOTE | 2023-12-21 10:57 | ED_ITS ---
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 Patient reports that over the past 3 or 4 days the lower extremity has become increasingly warm and swollen. Patient also reports a pinching sensation to the calf. Denies any missed doses of the Eliquis. Endorses edema in bilateral L>R lower legs, ankles, feet since the surgery. Denies chest pain, palpitations, shortness of breath, cough, numbness or tingling. MD complaint: left lower leg swelling Onset (ago): day(s) Location: left and lower extremity Radiation: proximal Severity: moderate Quality: aching Pain Consistency: intermittent Relieving factors: none Exacerbating factors: none and movement Associated symptoms: denies other symptoms Treatments prior to arrival: none Related Data Home Medications ?Medication ?Instructions ?Recorded ?Confirmed apixaban 5 mg tablet 5 mg PO BID 06/04/20 11/15/23 calcium carbonate (Calcium 600) 600 mg PO BID 11/15/23 11/15/23 memantine 7 mg capsule 7 mg PO BEDTIME 11/15/23 11/15/23 sprinkle,extended release 24hr apixaban 5 mg tablet (Eliquis) 5 mg PO BID 11/30/23 Previous Rx's ?Medication ?Instructions ?Recorded finasteride 5 mg tablet 5 mg PO DAILY 90 days #90 tabs 06/17/23 acetaminophen 325 mg tablet 650 mg (2 x 325 mg) PO Q6H PRN 11/25/23 Pain, Mild (Pain Scale 1-3), fever or headache #10 tabs Allergies Allergy/AdvReac Type Severity Reaction Status Date / Time No Known Allergies Allergy Verified 12/21/23 10:58 Review of Systems 2 Review of Systems: Yes all other systems are reviewed and are negative PMFSH Past Medical History Medical History Kidney stones Chronic anticoagulation Left leg DVT Prostate cancer Elevated PSA Surgical History History of cystoscopy Social History Social History Household Members: Family and Children Housing: House Are you a primary rn intensive care unit to a significant other at home: No Do you presently have visiting nurse or other home services: No Patient Tobacco Use Status: Never used Tobacco Advance Directives: Yes Advance Directives on File: Yes Advance Directives Date on File: 11/16/23 Do you have a plan to hurt others: No Plan service: No Physical Exam ED Vital Signs: Vital Signs - 24 hr 12/21/23 10:54 12/21/23 12:22 12/21/23 12:26 Temperature 98.6 F 98.7 F 98.7 F Pulse Rate 72 73 73 Respiratory Rate 16 16 16 Blood Pressure 122/65 144/76 H 144/76 H Pulse Oximetry 98 99 99 Oxygen Delivery Method Room Air Room Air Room Air BMI result Body Mass Index 22.8 Appearance: Alert. Oriented X3. No acute distress. HEENT: No obvious external abnormalities. Neck: Normal inspection. Neck supple. CVS: Normal heart rate and rhythm. Pulses normal. Respiratory: No respiratory distress. Breath sounds normal. Abdomen: Normal external inspection. Skin: Skin warm and dry. Normal skin color. Normal skin turgor. No rashes. Extremities: Moderate bilateral 2+ lower leg and ankle pitting edema. Residual ecchymosis noted to medial knee. Mild postsurgical joint swelling to the left leg. DP/PT pulses intact bilaterally. Scar appears to be handing well with no surrounding erythema, drainage. Neuro/psych: Oriented X 3. Neurovascularly intact. CN II-XII grossly intact. Normal speech and cognition. Course Course Course Narrative: This is a rapid medical exam performed by Charito Sharp NP: Additional HPI, ROS, PE not included below will be deferred to primary provider. Patient is a 78-year-old male with history of L leg DVT, recent L hip fracture with surgical repair currently on coumadin, presenting to the ED with complaint of left calf pain and swelling for the past 3-4 days. States was advised by PT to get U/S to out DVT. 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 On exam, there is moderate bilateral 2+ lower leg and ankle pitting edema, residual ecchymosis noted to medial knee, mild postsurgical joint swelling to the left leg, DP/PT pulses intact bilaterally, scar appears to be handing well with no surrounding erythema, drainage with concern for deep vein thrombosis, lymphedema, cellulitis, CHF, unlikely osteomyelitis. Plan for labs, coagulation studies, venous Doppler ultrasound of the left leg Lab workup showing a stable, mild anemia. Ultrasound is negative for DVT. Exam is not concerning for any infectious process. He is ambulatory with his walker. We discussed management of peripheral edema including swelling and compression stockings. He is stable for discharge home with outpatient follow-up, ongoing PT evaluation. Encouraged follow-up with PCP Differential Diagnosis Differential Diagnoses: The differential diagnosis associated with the presentation includes DVT, PVD, lymphedema, cellulitis Admission/Observation Consideration of admission/observation: Escalation of care including admission/observation considered Lab Data [facility] Lab Attestation statement: I reviewed the patient's lab results. Stable mild anemia, no leukocytosis, normal platelet 12/21/23 11:18 12/21/23 11:18 Labs: Lab Results 12/21/23 Range/Units 11:18 WBC 5.9 (4.8-10.8) X10*3/uL RBC 4.47 L (4.60-5.80) X10*6/uL Hgb 13.9 L (14.0-18.0) g/dl Hct 41.3 L (42.0-52.0) % MCV 92.4 (80.0-98.0) fL MCH 31.1 (27.0-33.0) pg MCHC 33.7 (31.0-36.0) g/dl RDW 13.5 (11.0-16.0) % Plt Count 258 (160-400) X10*3/uL MPV 9.3 L (9.4-12.4) fL Immature Gran % (Auto) 0.3 (0.0-0.4) % Neut % (Auto) 58.6 (45-73) % Lymph % (Auto) 20.1 (20-40) % [place] % (Auto) 12.3 H (2-11) % Eos % (Auto) 8.4 H (0-4) % Baso % (Auto) 0.3 (0-2) % Lymph # (Auto) 1.2 (1.2-4.9) X10*3/uL [place] # (Auto) 0.7 (0.1-1.2) X10*3/uL Eos # (Auto) 0.5 H (0.0-0.4) X10*3/uL Baso # (Auto) 0.0 (0.0-0.2) X10*3/uL Abs Immat Gran (auto) 0.02 (0.00-0.03) X10*3/uL Absolute Neuts (auto) 3.4 (2.0-8.3) x10*3/uL Absolute Nucleated RBC 0.000 (0.0-0.012) X10*3/uL Nucleated RBC % (auto) 0.0 (0.0-0.2) /100WBC PT 15.4 H (10.9-12.4) SEC INR 1.3 H (0.9-1.1) APTT 29.9 (26.0-36.8) SEC Sodium 143 (135-145) mmol/L Potassium 4.8 (3.3-5.1) mmol/L Chloride 106 (96-108) mmol/L Carbon Dioxide 29 (22-29) mmol/L Anion Gap 13 (12-20) BUN 15 (9-16) mg/dL Creatinine 1.03 (0.5-1.4) mg/dL Estim Creat Clear Calc 54.1 Estimated GFR > 60 Random Glucose 114 (60-115) mg/dL Calcium 9.5 D (8.4-10.2) mg/dL Total Bilirubin 0.4 (0.0-1.0) mg/dL AST 23 (5-37) U/L ALT 28 (0-40) U/L Alkaline Phosphatase 244 H (39-117) U/L Total Protein 7.4 (6.5-8.0) g/dL Albumin 3.8 (3.5-5.0) g/dL Independent Interpretation I performed an independent interpretation of an: Ultrasound Interpretation: no DVT apprecaited Radiology Impression Discussion of test interpretation with radiology: I have reviewed the radiologist's reading. Independent Historian Clinical information obtained from an independent historian. History obtained from or confirmed by: Spouse External Record Review External record reviewed: Inpatient record, Outpatient record and Prior outpatient radiology Prescription Management I considered prescription management with: Pain Medication and Other (diuretic) Chronic Conditions Patient?s care impacted by: Other (hx multiple DVTs) Critical Care Time Critical Care Time Critical Care Time: No Discharge Plan Discharge Clinical Impression: Leg edema, left Patient Disposition: Home, Self-Care Instructions: Leg Edema (ED) Additional Instructions: Your ultrasound today did not show any DVT or blood clots Recommend elevating your leg when possible at home If you have ongoing or worsening pain and swelling, your doctor may consider repeating the ultrasound in a week If you develop new or worsening symptoms call 911 or come back to the ER for further evaluation. Prescriptions: No Action memantine 7 mg capsule,sprinkle,ER 24hr 7 mg PO BEDTIME calcium carbonate [Calcium 600] 600 mg calcium (1,500 mg) Tablet 600 mg PO BID acetaminophen 325 mg Tablet 650 mg PO Q6H PRN (Reason: Pain, Mild (Pain Scale 1-3), fever or headache) Qty: 10 0RF apixaban 5 mg tablet 5 mg PO BID Eliquis 5 mg tablet 5 mg PO BID finasteride 5 mg tablet 5 mg PO DAILY 90 Days Qty: 90 1RF Interventions: ED Discharge Assessment Last Done: 12/21/23 12:26 Discharge Date/Time: 12/21/23 12:27 Print Language: Slovenian
[2023-12-21 11:23] LABS: MANUAL DIFF FLAG NO
[2023-12-21 11:24] LABS: Basophils Percent Auto 0.3 % (0-2); Eosinophils Absolute Auto 0.5 X10*3/uL (0.0-0.4); Eosinophils Percent Auto 8.4 % (0-4); Hematocrit 41.3 % (42.0-52.0); Hemoglobin 13.9 g/dl (14.0-18.0); Imm Gran Abs Auto 0.02 X10*3/uL (0.00-0.03); Imm Gran Pct Auto 0.3 % (0.0-0.4); Lymphocytes Absolute Auto 1.2 X10*3/uL (1.2-4.9); Lymphocytes Percent Auto 20.1 % (20-40); Mean Corpuscular HGB Conc 33.7 g/dl (31.0-36.0); Mean Corpuscular Hemoglobin 31.1 pg (27.0-33.0); Mean Corpuscular Volume 92.4 fL (80.0-98.0); Mean Platelet Volume 9.3 fL (9.4-12.4); Monocytes Absolute Auto 0.7 X10*3/uL (0.1-1.2); Monocytes Percent Auto 12.3 % (2-11); Neutrophils Absolute Auto 3.4 x10*3/uL (2.0-8.3); Neutrophils Percent Auto 58.6 % (45-73); Platelet Count 258 X10*3/uL (160-400); Red Blood Count 4.47 X10*6/uL (4.60-5.80); Red Cell Distribution Width 13.5 % (11.0-16.0); White Blood Count 5.9 X10*3/uL (4.8-10.8)
[2023-12-21 11:36] LABS: INTERNATIONAL NORM RATIO 1.3 (0.9-1.1); Prothrombin Time 15.4 SEC (10.9-12.4)
[2023-12-21 11:39] LABS: Partial Thromboplastin Time 29.9 SEC (26.0-36.8)
--- NOTE | 2023-12-21 11:40 | PC.NURSE ---
ultrasound being completed at this time.
[2023-12-21 11:42] LABS: Alanine Aminotransferase 28 U/L (0-40); Albumin Level 3.8 g/dL (3.5-5.0); Alkaline Phosphatase 244 U/L (39-117); Anion Gap 13 (12-20); Aspartate Amino Transferase 23 U/L (5-37); Bilirubin Total 0.4 mg/dL (0.0-1.0); Blood Urea Nitrogen 15 mg/dL (9-16); Calcium 9.5 mg/dL (8.4-10.2); Carbon Dioxide 29 mmol/L (22-29); Chloride 106 mmol/L (96-108); Creatinine Clr Calc Pharmacy 54.1; Estimated Glomerular Filt Rate > 60; Glucose Random 114 mg/dL (60-115); Potassium 4.8 mmol/L (3.3-5.1); Sodium 143 mmol/L (135-145); Total Protein 7.4 g/dL (6.5-8.0)
[2023-12-21 12:22] VITALS: BP 144/76; PULSE 73; RESP 16; TEMP 37.1; O2SAT 99
[2023-12-21 12:26] VITALS: BP 144/76; PULSE 73; RESP 16; TEMP 37.1; O2SAT 99
== END 2023-12-21 12:27 | disposition home or self-care (01) ==
PROVIDERS: Registered Nurse Emergency; Emergency Provider Student in an Organized Health Care Education/Training Program; PCP Internal Medicine
DX: R60.0 Localized edema (principal); M79.662 Pain in left lower leg; Z86.718 Personal history of other venous thrombosis and embolism; Z79.01 Long term (current) use of anticoagulants
CPT/HCPCS: 36415; 80053; 85025; 85610; 85730; 93971; 99282; 99284

== ENCOUNTER 2023-12-28 10:39 | Outpatient (REF) | payer OTHER, MEDICARE, SELFPAY | END 2023-12-28 10:40 | disposition home or self-care (01) | LOC: HO.HOSX 10:39 | DX: M25.552 Pain in left hip (principal) | CPT/HCPCS: 73502; 99212 ==

== ENCOUNTER 2023-12-28 14:29 | Outpatient (AMB) | payer OTHER, MEDICARE, SELFPAY ==
--- NOTE | 2023-12-28 14:44 | MHC.OFFVIS ---
Intake Visit Reasons: PO-Left hip intertrochanteric fracture DOS 11/18/23 Intake Note: Jn is a 78 year old male who presents today with his post operatively S/P ORIF of left hip intertrochanteric fracture with placement of a short gamma nail DOS: 11/18/2023 w/ Dr Churchill. Pt states he is overall feeling well. Pt states he has been doing PT 2-3 times a week. Pt states he feels he is getting stronger and is able to walk better. Pt states he does still have some left leg pain occasionally. Allergies No Known Allergies Allergy (Verified 12/28/23 14:44) HPI HPI PO-Left hip intertrochanteric fracture DOS 11/18/23: Details: Patient is a 78-year-old male who presents for postoperative evaluation status post left hip IM nail, DOS 11/18/2023. Today, the patient reports he is feeling very well, and his ambulation and functional capacity have improved significantly since previous evaluation. The patient was still ambulating with a walker, but he feels that physical therapy, which he is getting at home 2-3 times per week, has improved his mobility significantly. Of note, the patient reports that approximately 1.5 weeks ago, he experienced significant swelling, redness, and pain in his left calf, so he presented to the emergency department, where ultrasound was negative. Today, the patient reports that the swelling has improved significantly, but it is still present, and he also states that he experiences some minor discomfort with palpation of the left calf. Distal sensation intact. No other acute complaints or concerns at this time. [facility] Medical History Kidney stones Chronic anticoagulation Left leg DVT Prostate cancer Elevated PSA Surgical History History of cystoscopy Social History Household Members: Family and Children Housing: House Are you a primary healthcare facility administrator to a significant other at home: No Do you presently have visiting nurse or other home services: No Patient Tobacco Use Status: Never used Tobacco Advance Directives Date on File: 11/16/23 service: No Physical Exam Extrem Other: Incision site on left hip well-approximated and well-healed No evidence of surrounding erythema, ecchymosis No evidence of infection Of note, the left lower leg is edematous when compared to the right, no erythema noted Patient reports no tenderness to palpation about the left hip Patient does report some very mild discomfort with palpation and calf squeeze of the left calf Patient is able to ambulate without difficulty Patient is able to forward flex the leg at the hip off of the chair he is sitting in without difficulty Distal sensation intact Capillary refill brisk Results Reviewed Results Reviewed: X-rays obtained in the office today and independently reviewed by me, Erich Mariano PA-C, demonstrate well approximated intertrochanteric fracture of left hip with intramedullary nail in place and in satisfactory clinical alignment with evidence of interval bony healing. Assessment & Plan Assessment & Plan (1) Closed intertrochanteric fracture of left femur: Code(s): S72.142A - Displaced intertrochanteric fracture of left femur, initial encounter for closed fracture Category: Medical (2) Chronic anticoagulation: Code(s): Z79.01 - termination clerk (current) use of anticoagulants Category: Medical Plan 1. Intertrochanteric fracture of the left hip status post IM nail placement DOS 11/18/2023 Patient appears to be recovering well postoperatively Patient is educated about the typical recovery course At this time, patient is informed that due to the fact that his swelling and discomfort are improving in the left lower extremity, he had a negative ultrasound approximately 1.5 weeks ago in the ED, and he has not missed any of his anticoagulation, I do not feel that a repeat ultrasound is necessary at this time However, the patient is informed that if he notices any increases in redness, swelling, or discomfort in the left lower extremity, he should re-present to the emergency department for another ultrasound, as he has a history of DVT in the left lower extremity Patient is advised to continue with strict adherence to his previously prescribed DVT prophylaxis Patient was advised that he should continue with physical therapy to improve functional capacity Of note, 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
== END 2023-12-28 15:16 | disposition home or self-care (01) ==
PROVIDERS: PCP Internal Medicine
DX: S72.142A Displaced intertrochanteric fracture of left femur, initial encounter for closed fracture (principal); Z79.01 Long term (current) use of anticoagulants
CPT/HCPCS: 99024

== ENCOUNTER 2024-02-08 12:59 | Outpatient (REF) | payer OTHER, MEDICARE, SELFPAY | END 2024-02-08 13:00 | disposition home or self-care (01) | LOC: HO.HOSX 12:59 | PROVIDERS: PCP Internal Medicine | DX: M25.552 Pain in left hip (principal) | CPT/HCPCS: 73502 ==

== ENCOUNTER 2024-02-08 12:59 | Outpatient (AMB) | payer OTHER, MEDICARE, SELFPAY ==
--- NOTE | 2024-02-08 13:00 | MHC.OFFVIS ---
Intake Visit Reasons: PO-Left hip intertrochanteric fracture DOS 11/18/23 Intake Note: Jn is a 78 year old male who presents today with his post operatively S/P ORIF of left hip intertrochanteric fracture with placement of a short gamma nail DOS: 11/18/2023 w/ Dr Churchill. Pt states he is doing outpatient PT which he started Tuesday and states is helpful. Pt states he is still using a cane to walk. Allergies No Known Allergies Allergy (Verified 02/08/24 13:01) HPI HPI PO-Left hip intertrochanteric fracture DOS 11/18/23: Details: Patient is a 78-year-old male who presents for postoperative evaluation status post left hip IM nail, DOS 11/18/2023. Today, the patient reports that he is feeling very well, and then he is making slow but steady progress with PT in terms of his ambulation. However, the patient does continue to endorse bilateral lower leg swelling, left slightly worse than right, ongoing for several weeks. 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 The patient was seen in the emergency department last month for this leg swelling, where an ultrasound was taken revealing no acute deep venous thrombosis. No other acute complaints or concerns at this time. [facility] Medical History Kidney stones Chronic anticoagulation Left leg DVT Prostate cancer Elevated PSA Surgical History History of cystoscopy Social History Household Members: Family and Children Housing: House Are you a primary professional healthcare representative to a significant other at home: No Do you presently have visiting nurse or other home services: No Patient Tobacco Use Status: Never used Tobacco Advance Directives Date on File: 11/16/23 service: No Physical Exam Extrem Other: Incision site on left hip well-approximated and well-healed No evidence of surrounding erythema, ecchymosis No evidence of infection Of note, the left lower leg is edematous when compared to the right, no erythema noted Patient reports no tenderness to palpation about the left hip Patient does report some very mild discomfort with palpation and calf squeeze of the left calf Patient is able to ambulate without difficulty Patient is able to forward flex the leg at the hip off of the chair he is sitting in without difficulty Distal sensation intact Capillary refill brisk Results Reviewed Results Reviewed: X-rays obtained in the office today and independently reviewed by me, Erich Mariano PA-C, demonstrate well approximated intertrochanteric fracture of left hip with intramedullary nail in place and in satisfactory clinical alignment with evidence of interval bony healing. 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 Intertrochanteric fracture of the left hip status post IM nail placement DOS 11/18/2023 Patient appears to be recovering well postoperatively Patient is educated about the typical recovery course At this time, patient is informed that due to the fact that his swelling and discomfort are improving in the left lower extremity, he had a negative ultrasound approximately 6 weeks ago in the ED, and he has not missed any of his anticoagulation, I do not feel that a repeat ultrasound is necessary at this time Patient is advised that if he notices any acute worsening of this lower extremity swelling he should go to the emergency department for repeat ultrasound Patient was also advised that he should follow-up with his primary care provider, as this swelling may not be related to any DVT, but might be cardiovascular in origin Patient is advised to continue with strict adherence to his previously prescribed DVT prophylaxis Patient was advised that he should continue with physical therapy to improve functional capacity Of note, 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
== END 2024-02-08 13:44 | disposition home or self-care (01) ==
PROVIDERS: PCP Internal Medicine
DX: S72.142A Displaced intertrochanteric fracture of left femur, initial encounter for closed fracture (principal); Z79.01 Long term (current) use of anticoagulants
CPT/HCPCS: 99024

== ENCOUNTER 2024-04-03 09:52 | Outpatient (REF) | payer OTHER, MEDICARE, SELFPAY ==
--- NOTE | ~2024-04-03 | XR_ITS ---
EXAMINATION: XR HIP 2 OR MORE VIEWS LEFT HISTORY: M25.552 - Pain in left hip COMPARISON: Comparison is made with the prior examination dated 02/08/2024. FINDINGS: A single AP view of the pelvis and two views of the left hip are submitted. Osseous mineralization is normal. The patient is again noted to be status post internal fixation of intertrochanteric fracture with a compression screw and intramedullary joanna. The fixation hardware is intact. A large amount of heterotopic bone formation is again noted. There is mild joint space narrowing. The soft tissues are unremarkable. XR/XR hip LT min 2V IMPRESSION: Internal fixation of an intertrochanteric fracture of the left hip without significant change. Electronically signed by: Gene Rod MD 04/04/2024 03:39 PM BERT AMOR
== END 2024-04-03 09:53 | disposition home or self-care (01) ==
LOC: HO.HOSX 09:52
DX: M25.552 Pain in left hip (principal)
CPT/HCPCS: 73502

== ENCOUNTER 2024-04-03 11:34 | Outpatient (AMB) | payer OTHER, MEDICARE, SELFPAY ==
--- NOTE | 2024-04-03 11:44 | MHC.OFFVIS ---
Vital Signs 04/03/24 11:54 Height 5 ft 6 in Weight 141 lb BMI 22.8 Intake Visit Reasons: OV-Left hip intertrochanteric fracture DOS 11/18/23 Intake Note: Jn is a 78 year old male who presents today with his post operatively S/P ORIF of left hip intertrochanteric fracture with placement of a short gamma nail DOS: 11/18/2023 w/ Dr Churchill. Patient reports he completed PT last week however he feels he would benefit with more sessions. He complains of intermittent pain at the lateral aspect of hip. He continues to use cane with ambulation. Allergies No Known Allergies Allergy (Verified 04/03/24 11:54) HPI HPI OV-Left hip intertrochanteric fracture DOS 11/18/23: Details: Jn is a 78 year old male who presents today with his post operatively S/P ORIF of left hip intertrochanteric fracture with placement of a short gamma nail DOS: 11/18/2023 w/ Dr Churchill. Patient reports he completed PT last week however he feels he would benefit with more sessions. He complains of intermittent pain at the lateral aspect of hip. He continues to use cane with ambulation. [facility] Medical History Kidney stones Chronic anticoagulation Left leg DVT Prostate cancer Elevated PSA Surgical History History of cystoscopy Social History Household Members: Family and Children Housing: House Are you a primary children's zoo caretaker to a significant other at home: No Do you presently have visiting nurse or other home services: No Patient Tobacco Use Status: Never used Tobacco Advance Directives Date on File: 11/16/23 service: No Review of Systems Const All systems reviewed & are unremarkable except as noted in HPI and below Physical Exam Vital Signs: BMI result Body Mass Index 22.8 Extrem Other: Incision site on left hip well-approximated and well-healed No evidence of surrounding erythema, ecchymosis No evidence of infection No erythema or edema noted Patient reports no tenderness to palpation about the left hip Patient is able to ambulate without difficulty Patient is able to forward flex the leg at the hip off of the chair he is sitting in without difficulty Distal sensation intact Capillary refill brisk Results Reviewed Results Reviewed: X-rays obtained in the office today and independently reviewed by me, Erich Mariano PA-C, demonstrate well approximated intertrochanteric fracture of left hip with intramedullary nail in place and in satisfactory clinical alignment with evidence of interval bony healing. 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, and he will be held totally out of work at least until follow-up, but likely longer, as he will not be able to return to work until he is ambulating without devices and without any difficulty, and when the fracture shows signs of good healing Patient was amenable to this plan Patient will follow-up in 3 months with repeat x-rays, sooner with any acute concerns Orders: Orders PT Evaluation and Treatment Today S72.142A - Displaced intertrochanteric fracture of left femur, initial encounter for closed fracture XR hip LT min 2V Today M25.552 - Pain in left hip Coding Level of Care Code Est Pt Level 3 (75489) Diagnoses Closed intertrochanteric fracture of left femur S72.142A Chronic anticoagulation Z79.01
[2024-04-03 11:54] VITALS: BMI 22.8
== END 2024-04-03 12:00 | disposition home or self-care (01) ==
PROVIDERS: PCP Internal Medicine
DX: S72.142A Displaced intertrochanteric fracture of left femur, initial encounter for closed fracture (principal); Z79.01 Long term (current) use of anticoagulants
CPT/HCPCS: 99213

== ENCOUNTER 2024-06-02 15:22 | Outpatient (REF) | payer OTHER, MEDICARE, SELFPAY ==
--- NOTE | ~2024-06-02 | MR_ITS ---
EXAMINATION: MR BRAIN PITUITARY PROTOCOL WITHOUT AND WITH CONTRAST CLINICAL INFORMATION: [facility] COMPARISON: November 15, 2023. TECHNIQUE: Multiplanar, multisequence MRI of the brain /pituitary protocol was obtained before and after the intravenous administration of 3.2 mL gadolinium based contrast without reported immediate complications.. FINDINGS: No restricted diffusion. No acute intracranial hemorrhage, mass effect, midline shift, hydrocephalus or herniation. There is a well-defined, ovoid shaped, 5 x 5 x 6 mm intrinsic hyperintense T1 nonenhancing signal centered in the suprasellar region anterior to the pituitary stalk and beneath in the optic as an without contacting it. The pituitary gland demonstrates normal morphology signal and enhancement pattern. Bilateral multifocal subtle patchy and punctate deep periventricular white matter hyperintense T2 FLAIR signal involving centrum semiovale and desai radiata. Flow-void signal within the main cerebral vessels is normal. No abnormal enhancement within the intra-axial or the extra-axial compartment of the cranium. Craniocervical junction is normal. MR/MR head/brain wo/w con IMPRESSION: 5 x 5 x 6 mm intrinsic high T1 signal lesion, suprasellar region. Differential diagnostic considerations include Rathke's cleft cyst versus lipoma versus dermoid/teratoma. Electronically signed by: Teddy De León MD 06/05/2024 08:21 AM EDT
--- OUTSIDE RECORDS SUMMARY | 2024-06-02 15:29 | XMS_ITS | Encounter Summary ---
Author Organization [place] [address] Care Team Providers Care Appeals Referee Name Role Phone Zeke Herrera MD Primary Care Provider [phone] Reason for Visit * Therapy (Routine) - Closed Specialty Diagnoses / Procedures Referred By Chris t Referred To Contact Physical Therapy Diagnoses Displaced intertrochanteric fracture of left femur, sequela Zeke Herrera MD [address] [place] [id number] Phone: tel: fax: [address] [address] Phone: tel: fax: Referral ID Status Reason Start Date Expiration Date V isits Requested Visits Authorized [id number] Closed Specialty Services Required 01/09/2024 03/18/2025 13 13 Encounter Details Date Type Department Care Team (Latest Contact Info) Description 05/31/2024 3:30 PM EDT Treatment [address] [address] Olu English PTA Displaced intertrochanteric fracture of left femur, sequela (Primary Dx) Social History Tobacco Use Types Packs/Day Years Used Date Smoking Tobacco: Never Smokeless Tobacco: Never Alcohol Use Standard Drinks/Week Comments No 0 (1 standard drink = 0.6 oz pur e alcohol) Sex and Gender Information Value Date Recorded Sex Assigned at Not on file Legal Sex Male 4:50 AM EST Gender Identity Not on file Sexual Orientation Not on file documented as of this encounter Progress Notes * Olu English PTA - 05/31/2024 3:30 PM EDT [facility] - Outpatient PHYSICAL THERAPY DAILY TREATMENT NOTE - OP Date: 05/31/2024 Visit Number: [id number] Patient Name: Jn Resendez : 1945 Age: 79 y.o. Gender: male Diagnosis: ICD-10-CM ICD-9-CM 1. Displaced intertrochanteric fracture of left femur, sequela S72.142S 820.21 Date of Onset/Surgery: Multiple active episodes found Referring Provider: Zeke Herrera MD Insurance: Payor: GENERIC / Plan: GENERIC / Product Type: Indemnity / Patient Identified by: Olu English PTA Language: Speaks and understands Tunisian as preferred language with no feather shaper required Medications: Current Outpatient Medications on File Prior to Visit Medication Sig Dispense Refill acetaminophen (TYLENOL) 500 mg tablet Take 2 tablets (1,000 mg total) by mouth every 8 (eight) hours if needed for mild pain. calcium carbonate-vitamin D3 600 mg-10 mcg (400 unit) capsule Take by mouth. Eliquis 5 mg tablet TAKE ONE TABLET BY MOUTH TWICE A DAY 180 tablet 1 finasteride (PROPECIA) 1 mg tablet Take 1 tablet (1 mg total) by mouth 3 (three) times a week. Do not crush, chew, or split. loratadine (CLARITIN) 10 mg tablet Take 1 tablet (10 mg total) by mouth 1 (one) time each day. memantine (Namenda XR) 21 mg extended release capsule Take 1 capsule (21 mg total) by mouth 1 (one)time each day. 90 capsule 1 No current facility-administered medications on file prior to visit. Allergies: has No Known Allergies. Precautions: none Fall risk: No SUBJECTIVE Subjective Report: Patient reports no changes Chart Reviewed: Yes Pain: no complaints of pain. TREATMENT INTERVENTION: NuStep L5 x 5 mins Calf Stretching on Slant board Hip Flexor and Hamstring stretching on 8 inch step supported at // bars Supine Heelslides using slideboard for easier glides 5 sec hold x 15 reps HL Hip ADD 5 sec hold x 15 reps Seated LAQ Standing Hamstring curls 10 reps Hip ext 12 reps VC to perform correctly ASSESSMENT/Response to Treatment Good response with exercises. HEP issued with above exercises to perform daily Patient Education: Education provided: yes Education Provided To: Patient utilizing Printed Material mode(s) of education Response to Education: Verbal Understanding PLAN POC Development/Review: No Change in the Plan of Care; Participants: Patient Interventions Time Entry: Modalities: Therapeutic procedures: Therapeutic Exercise Time Entry: 30 Total Treatment Time: 30 mins Documentation completed by Olu English PTA documented in this encounter Plan of Treatment Upcoming Encounters Date Type Department Care Team (Late st Contact Info) Description 06/11/2024 1:30 PM EDT Office Visit Orthopedic Surgery - [place] [id number] [phone] Jerardo Kelley, DPKristin [address] [address] 07/19/2024 8:00 AM EDT Office Visit Adult Medicine [address] [phone] Zeke Herrera MD [address] [place] [id number] documented as of this encounter Goals Goal Patient Goal Type Associated Problems Recent Progress Patient-Stated? Author PT STG x 8 visits General Yes David Faith PT Note: Pt will be able to perform full bridge to improve bed mobility Pt will be able to perform one rep sit to stand without UE support Pt will improve hip add strength to 3/5 Pt will require no assist with supine to sit PT LTG x 15 visits General No David Faith PT Note: Pt will ambulate with symmetrical step length Pt will be able to perform 5 reps sit to stand without UE support Pt will be able to negotiate [address]c only documented as of this encounter Visit Diagnoses Diagnosis Displaced intertrochanteric fracture of left femur, sequela- Primary documented in this encounter Care Teams Appeals Referee Relationship Specialty Start Date End Date Zeke Herrera MD [address] [place] [id number] PCP - General Internal Medicine 02/06/24 documented as of this encounter
--- OUTSIDE RECORDS SUMMARY | 2024-06-02 15:29 | XMS_ITS | Clinical Summary ---
Author Organization [facility] Address [address] [place] [address] Phone Care Team Providers Care Hosiery Knitter Name Role Phone Zeke Herrera MD Primary Care Provider [phone] Allergies No known active allergies Medications acetaminophen (TYLENOL) 500 mg tablet Take 2 tablets (1,000 mg total) by mouth every 8 (eight) hours if needed for mild pain. 0 Active calcium carbonate-sandy min D3 600 mg-10 mcg (400 unit) capsule Take by mouth. Active loratadine (CLARITIN) 10 mg tablet Take 1 tablet (10 mg total) by mouth 1 (one) time each day. 3 Active memantine (Namenda XR) 21 mg extended release capsule Take 1 capsule (21 mg total) by mouth 1 (one) time each day. 90 capsule 1 5 Active finasteride (PROPECIA) 1 mg tablet Take 1 tablet (1 mg total) by mouth 3 (three) times a week. Do not crush, chew, or split. Active Eliquis 5 mg tablet TAKE ONE TABLET BY MOUTH TWICE A DAY 180 tablet 1 5 Active apixaban (Eliquis) 5 mg tablet Take 1 tablet (5 mg total) by mouth 2 (two) times a day. 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 Overview (05/28/2023): O update Esophageal reflux 02/01/2005 Encounters Date Type Department Care Team Description 05/31/2024 3:30 PM EDT Treatment [address] [phone] Olu English PTA Displaced intertrochanteric fracture of left femur, sequela (Primary Dx) 05/02/2024 5:00 PM EST Evaluation [address] [phone] David Faith, PT Displaced intertrochanteric fracture of left femur, sequela (Primary Dx); Pain of left hip 04/30/2024 4:08 PM EST - 04/30/2024 11:59 PM EST Hospital Encounter Radiology Department - [address] [phone] Lower extremity edema Discharge Disposition: Home or Self Care 04/16/2024 4:30 PM EST Office Visit Adult Medicine [address] [phone] Zeke Herrera MD Prostate cancer ([facility]) (Primary Dx); MCI (mild cognitive impairment); Lower extremity edema; History of DVT (deep vein thrombosis); Elevated blood pressure reading 03/28/2024 2:00 PM EST Treatment [facility] [address] [phone] Gene Traore, PT Displaced intertrochanteric fracture of left femur, sequela (Primary Dx) 03/26/2024 2:00 PM EST Treatment [address] [phone] Gene Traore, PT Displaced intertrochanteric fracture of left femur, sequela (Primary Dx) 03/07/2024 2:30 PM EST Treatment [address] [phone] Onel George, MONTSE Displaced intertrochanteric fracture of left femur, sequela (Primary Dx) 03/05/2024 2:30 PM EST Treatment [address] [phone] Onel George, MACHINE WHITENER Displaced intertrochanteric fracture of left femur, sequela (Primary Dx) from Last 3 Months Immunizations Name Administration Dates Next Due Influenza Quadravalent, 0.5m l (Fluzone High-dose) 65yo and older 12/21/2021 Influenza trivalent, 0.5mL ( Fluzone High-dose) 65yo and older 12/27/2022,12/30/2020,01/12/2019,12/15 Influenza trivalent, with pr eservative (Fluzone; Afluria) 6mo and older 02/18/2015,01/04/2014,12/19/2012,02/23,12/18/2007 Pneumococcal conjugate 13 va lent (Prevnar 13, PCV13) 2mo and older 10/08/2016 Pneumococcal polysaccharide 23 valent (Pneumovax 23) 2yo and older 01/30/2020 Td Tetanus diptheria (Tdvax) 7yo and older 10/08/2016 Tdap Tetanus diptheria acell ular pertussis (Boostrix; Adacel) 7yo and older 08/16/2006 Zoster Live 11/15/2012 Zoster recombinant (Shingrix ) 19yo and older 11/03/2017,08/05/2017 Surgical History Surgery Date Site/Laterality Comments KNEE SURGERY 2010 PROCEDURE: HISTORICAL KNEE SURGERY; COMMENT: Meniscectomy COLONOSCOPY 2004 PROCEDURE: HISTORICAL COLONOSCOPY; COMMENT: Negative examination UPPER GASTROINTESTINAL ENDOSCOPY 2004 PROCEDURE: MN UPPER GI ENDOSCOPY PERFORMED; COMMENT: Reflux esophagitis CHOLECYSTECTOMY 03/07/2015 PROCEDURE: HISTORICAL CHOLECYSTECTOMY; COMMENT: Negative IOC. PARATHYROIDECTOMY 2012 PROCEDURE: HISTORICAL PARATHYROIDECTOMY; COMMENT: Symptomatic hyperparathyroidism KIDNEY STONE SURGERY PROCEDURE: MN NEPHROLITHOTOMY REMOVAL CALCULUS; COMMENT: History of multiple procedures for stones COLONOSCOPY 2015 PROCEDURE: HISTORICAL COLONOSCOPY; COMMENT: small right colon polyps x 4: Adenomas ? 3 , normal mucosa ? 1 . COLONOSCOPY 10/05/2019 PROCEDURE: HISTORICAL COLONOSCOPY; COMMENT: 8 mm transverse colon polyp: Sessile serrated adenoma. Medical History Medical History Date Comments Esophageal reflux DX:Esophageal reflux Kidney stone 07/31/2010 DX:Kidney stone Degenerative tear of posteri or horn of medial meniscus 07/27/2013 DX:Degenerative tear of post erior horn of medial meniscus Embolism and thrombosis of u nspecified site DX:Embolism and thrombosis o f unspecified site Family History Medical History Relation Name Comments Heart attack Brother 1 DM Prostate cancer Brother 2 Heart attack Father Arthritis Mother Cataracts Mother Diabetes Mother Glaucoma Mother Diabetes Sister 1 Diabetes Sister 2 Diabetes Sister 3 Blindness Neg Hx Macular degeneration Neg Hx Strabismus Neg Hx Relation Name Status Comments Brother 1 Brother 2 Father Mother Sister 1 Sister 2 Sister 3 Social History Tobacco Use Types Packs/Day Years Used Date Smoking Tobacco: Never Smokeless Tobacco: Never Tobacco Cessation:Counseling Given: Not Answered Alcohol Use Standard Drinks/Week Comments No 0 (1 standard drink = 0.6 oz pur e alcohol) Sex and Gender Information Value Date Recorded Sex Assigned at Not on file Legal Sex Male 4:50 AM EST Gender Identity Not on file Sexual Orientation Not on file Obstetrics History Last Filed Vital Signs Vital Sign Reading Time Taken Comments Blood Pressure 146/76 04/16/2024 4:31 PM EST Pulse 81 04/16/2024 4:31 PM EST Temperature 36.5 ??C (97.7 ??F) 04/16/2024 4:31 PM ES T Respiratory Rate 14 04/16/2024 4:31 PM EST Oxygen Saturation 98% 04/16/2024 4:31 PM EST Inhaled Oxygen Concentration - - Weight 70.6 kg (155 lb 9.6 oz) 04/16/2024 4:31 P M EST Height 162.6 cm (5' 4 ) 04/16/2024 4:31 PM EST Body Mass Index 26.71 04/16/2024 4:31 PM EST Plan of Treatment Upcoming Encounters Date Type Department Care Team (Late st Contact Info) Description 06/11/2024 1:30 PM EDT Office Visit Orthopedic Surgery - [place] [phone] [phone] Jerardo Kelley, DPM [address] [phone] 07/19/2024 8:00 AM EDT Office Visit Adult Medicine [address] [phone] Zeke Herrera MD [address] [place] [phone] Health Maintenance Due Date Last Done Comments RSV Immunization Patients 60+ Years Old (1 - 1-dose 75+ series) 2021 Social Influencers of Health Screening 02/27/2022 Depression Screening 06/22/2023 06/21/2022 Falls Risk Assessment 06/22/2023 06/21/2022 Medicare Annual Wellness Visit 06/22/2023 06/21/2022 COVID-19 Vaccine ( season) 2023 01/12/2023, 12/21/2021, 01/24/2021, Additional history exists Influenza Vaccine (#1) 2023 , 12/21/2021, 12/30/2020, Additional history exists Colorectal Cancer Screening: Colonoscopy 10/04/2024 Cholesterol Screening (Lipid Panel) 06/22/2027 06/21/2022 DTaP,Tdap,and Td Vaccines (4 - Td or Tdap) 08/11/2033 08/12/2023, 10/08/2016, 08/16/2006 Hepatitis C Screening Addressed 10/08/2016 Overri dden with the intention of not completing the topic Zoster Vaccines Completed 11/03/2017, 07/19, 11/15/2012 Pneumococcal Vaccine: 50+ Years Completed 01/30/2020, 10/08/2016 HIB Vaccines Aged Out No longer eligi ble based on patient's age to complete this topic HPV Vaccines Aged Out No longer eligi ble based on patient's age to complete this topic Hepatitis A Vaccines Aged Out No long er eligible based on patient's age to complete this topic Hepatitis B Vaccines Aged Out No long er eligible based on patient's age to complete this topic IPV Vaccines Aged Out No longer eligi ble based on patient's age to complete this topic MMR Vaccines Aged Out No longer eligi ble based on patient's age to complete this topic Meningococcal ACWY Vaccine Aged Out N o longer eligible based on patient's age to complete this topic Meningococcal B Vacine Aged Out No lo nger eligible based on patient's age to complete this topic RSV Immunization Patients Under 20 months Aged Out No longer eligible based on patient's age to complete this topic Varicella Vaccines Aged Out No longer eligible based on patient's age to complete this topic Goals Goal Patient Goal Type Associated Problems Recent Progress Patient-Stated? Author PT STG x 8 visits General Yes David Faith, PT Note: Pt will be able to perform full bridge to improve bed mobility Pt will be able to perform one rep sit to stand without UE support Pt will improve hip add strength to 3/5 Pt will require no assist with supine to sit PT LTG x 15 visits General No David Faith, PT Note: Pt will ambulate with symmetrical step length Pt will be able to perform 5 reps sit to stand without UE support Pt will be able to negotiate [address] with spc only Procedures Procedure Name Priority Date/Time Associated Diagnosis Comments VAS US DUPLEX LOWER EXT VENOUS RIGHT Routine 04/30/2024 5:47 PM EST Lower extremity edema from Last 3 Months Results * Vascular US duplex lower extremity venous right (04/30/2024 5:47 PM EST) Anatomical Region Laterality Modality Vascular, Abdomen Ultrasound 04/30/2024 6:07 PM EST Impressions 04/30/2024 6:08 PM EST No ultrasound evidence of deep venous thrombus in the right leg at this time from the upper groin throughout the calf. -------- FINAL REPORT -------- Dictated By: Linda Castro Dictated Date: 04/30/2024 18:07 ET Assigned Physician: Linda Castro Reviewed and Electronically Signed By: Linda Castro Signed Date: 04/30/2024 18:08 ET Workstation ID: [id number] Transcribed By: Self Edit Transcribed Date: 04/30/2024 18:07 ET Narrative 04/30/2024 6:08 PM EST VAS US DUPLEX LOWER EXT VENOUS RIGHT VENOUS ULTRASOUND, RIGHT LOWER EXTREMITY HISTORY: ??Right leg swelling. Procedure: Venous ultrasound of the right leg was performed from the upper groin throughout the calf. FINDINGS: ??No echogenic thrombus was seen. ??The deep venous system throughout the right leg was compressible. ??There was normal waveform respiratory phasicity. There was normal augmentation of color flow and duplex Doppler wave form throughout the deep venous system during compression at the ankle. No fluid or cyst is seen in the popliteal fossa. Procedure Note Linda Castro MD - 04/30/2024 VAS US DUPLEX LOWER EXT VENOUS RIGHT VENOUS ULTRASOUND, RIGHT LOWER EXTREMITY HISTORY: Right leg swelling. Procedure: Venous ultrasound of the right leg was performed from the uppergroin throughout the calf. FINDINGS: No echogenic thrombus was seen. The deep venous systemthroughout the right leg was compressible. There was normal waveformrespiratory phasicity. There was normal augmentation of color flow andduplex Doppler wave form throughout the deep venous system duringcompression at the ankle. No fluid or cyst is seen in the poplitealfossa. IMPRESSION: No ultrasound evidence of deep venous thrombus in the right leg at thistime from the upper groin throughout the calf. -------- FINAL REPORT -------- Dictated By: Linda Castro Dictated Date: 04/30/2024 18:07 ET Assigned Physician: Linda Castro Reviewed and Electronically Signed By: Linda Castro Signed Date: 04/30/2024 18:08 ET Workstation ID: [id number] Transcribed By: Self Edit Transcribed Date: 04/30/2024 18:07 ET us Zeke Herrera MD CV VASCULAR PROCEDURES Final Re sult from Last 3 Months Insurance MEDICARE [facility] [place] [address] [place] [address] Care Teams Hosiery Knitter Relationship Specialty Start Date End Date Zeke Herrera MD [address] [place] [phone] PCP - General Internal Medicine 02/06/24
[2024-06-02] MEDS: gadobutroL 7.5 ML VIAL IVPUSH (16:20)
== END 2024-06-02 15:23 | disposition home or self-care (01) ==
LOC: HO.MRI 15:22
PROVIDERS: Visit Provider Psychiatry & Neurology Neurology
DX: G31.84 Mild cognitive impairment of uncertain or unknown etiology (principal); E23.7 Disorder of pituitary gland, unspecified
CPT/HCPCS: 70553; A9585

== ENCOUNTER → 2024-06-02 15:52 | Outpatient (BNV) | payer OTHER, MEDICARE, SELFPAY | PROVIDERS: Visit Provider Radiology Diagnostic Radiology | DX: G31.84 Mild cognitive impairment of uncertain or unknown etiology (principal) | CPT/HCPCS: 70553 ==

== ENCOUNTER 2024-06-12 08:40 | Outpatient (REF) | payer OTHER, MEDICARE, SELFPAY ==
[2024-06-12 10:31] LABS: Prostate Specific Antigen 1.68 ng/mL (<0.05-4.0)
== END 2024-06-12 08:41 | disposition home or self-care (01) ==
LOC: HO.LAB 08:40
PROVIDERS: PCP Internal Medicine; Visit Provider Urology
DX: C61 Malignant neoplasm of prostate (principal); Z12.5 Encounter for screening for malignant neoplasm of prostate
CPT/HCPCS: 36415; 84153

== ENCOUNTER 2024-06-19 13:41 | Outpatient (AMB) | payer OTHER, MEDICARE, SELFPAY ==
--- NOTE | 2024-06-19 13:57 | A.OFFVIS_ITS ---
Intake Visit Reasons: 6m/PSA Intake Note: Patient is present for 6M/PSA Urology Medication:FINASTERIDE Antibiotic Allergy:NONE Blood Thinner:APIXABAN Senior Administrative Assistant Required: No Allergies No Known Allergies Allergy (Verified 08/24/24 10:55) HPI Comments Details: Jn is a pleasant male. He is a patient of Dr. Herrera. He is seen for the following urologic conditions - prostate cancer low volume low-grade disease PSA remains stable Six-month follow-up PSA Finasteride - continue Tuesday/Tuesday/Tuesday No other issues Prostate cancer - grade group 1 low volume disease 12/05 Current therapy finasteride and surveillance Prostate cancer diagnosed by Dr. Cagle Pathology at diagnosis 2 cores. [place] 3 + 3. No more than 10%. PSA at diagnosis 4.6 Family history prostate cancer Current therapy active surveillance - 2nd opinion obtained at [facility] with agreement for course of action PSA - 10/07 3.2, 12/09 2.9, 04/11 2.6, 08/09 2.7, 02/09 2.4, 08/10 2.4, 03/12 3.1, 06/11 1.8, 12/12 1.8, 06/12 1.7 Imaging 06/11 - prostate MRI. 35 g gland. No suspicious lesion PI-RADS 2 or greater shown on imaging Therapeutic plan -above [facility] Medical History Kidney stones Chronic anticoagulation Left leg DVT Prostate cancer Elevated PSA Surgical History History of cystoscopy Social History Household Members: Family and Children Housing: House Are you a primary care rep to a significant other at home: No Do you presently have visiting nurse or other home services: No Patient Tobacco Use Status: Never used Tobacco Advance Directives Date on File: 11/16/23 service: No Review of Systems Const Denies chills and Denies fever(s) Card Reports no additional complaints and Denies syncope Resp Denies cough GI Denies abdominal pain and Denies heartburn Reports as per HPI and Denies change in libido Neuro Denies syncope Psych Denies change in libido Endo Denies change in libido Physical Exam Const General: cooperative, healthy appearing, comfortable and no acute distress Orientation/consciousness: patient oriented x3 HEENT Face and sinus: Yes normal facial exam Mouth: moist mucous membranes Neck Neck: Yes normal visual inspection, Yes full ROM and Yes trachea midline Chest Chest palpation & inspection: normal inspection of the chest Resp Effort & Inspection: normal respiratory effort, able to speak in complete sentences and no respiratory distress GI Inspection: Yes normal to inspection Back/Spine/Pelvis Cervical Spine: normal cervical lordosis Thoracic/Lumbar Spine: thoracic and lumbar spine normal to inspection Skin General skin exam: no rashes or lesions noted Neuro General: patient oriented x3, gait normal, tone normal and moves all extremities Extrem General: Yes normal to inspection and Yes capillary refill normal Assessment & Plan Assessment & Plan (1) Prostate cancer: Comment: 11/201617 Grade group 1 low volume Code(s): C61 - Malignant neoplasm of prostate Category: Medical Plan Six-month follow-up Orders: Orders Prostate Specific Antigen 6 Months C61 - Malignant neoplasm of prostate Patient Instructions: This note is constructed using voice recognition software. While every effort has been made to ensure accuracy manager packaging errors may have been included. Imaging studies, laboratory and physical exam results were discussed and reviewed in detail. No major barriers to patient understanding were identified. An opportunity to ask questions regarding the treatment plan was provided. All questions were answered. The patient expressed understanding and agreement with the above treatment plan. The patient is aware they should contact our office by phone for worsening of their current condition or the appearance of new urologic symptoms. Compliance is encouraged with any medications and followup testing that is ordered. It is a privilege to participate in the urologic care of your patient. If you have any questions or concerns regarding treatment for the above conditions, or other urologic issues, please do not hesitate to contact me. The office telephone contact is [phone]. Sincerely, Dr Johnny Pearson MD, [facility] - Urology Compassionate Specialist Care for the Genitourinary System Coding Level of Care Code Est Pt Level 3 (77584) Complex EM visit Add On G2211 Diagnoses Prostate cancer C61
--- OUTSIDE RECORDS SUMMARY | 2024-06-19 16:15 | XMS_ITS | Clinical Summary ---
Author Organization 175 [facility] Address 175 [place] [address] Phone Care Team Providers Care College Instructor Name Role Phone Zeke Herrera MD Primary Care Provider [phone] Allergies No known active allergies Medications acetaminophen (TYLENOL) 500 mg tablet Take 2 tablets (1,000 mg total) by mouth every 8 (eight) hours if needed for mild pain. 0 Active calcium carbonate-vitam in D3 600 mg-10 mcg (400 unit) capsule Take by mouth. Activ e loratadine (CLARITIN) 10 mg tablet Take 1 [...] A DAY 180 tablet 1 5 Active ciclopirox (PENLAC) 8 % solution Apply topically at bedtime. Apply over nail and surrounding skin. Apply daily over previous coat. After seven (7) days, may remove with alcohol and continue cycle. 6.6 mL 5 09/10/19 25 Active Active Problems Problem Noted Date Diagnosed Date [...] anticoagulation Left leg DVT 05/04/2005 Overview (05/28/2023): IMO update Esophageal reflux 02/01/2005 Encounters Date Type Department Care Team Description 06/19/2024 10:00 AM EDT Treatment [address] [phone] Olu English, ASSOCIATE MUSIC PROFESSOR Displaced intertrochanteric fracture of left femur, sequela (Primary Dx) 06/15/2024 8:30 AM EDT Treatment [address] [phone] Onel George, ASSOCIATE MUSIC PROFESSOR Displaced intertrochanteric fracture of left femur, sequela (Primary Dx); Pain of left hip 06/13/2024 12:00 PM EDT Treatment [address] [phone] Erich Sandy, ASSOCIATE MUSIC PROFESSOR Displaced intertrochanteric fracture of left femur, sequela (Primary Dx) 06/11/2024 1:30 PM EDT Office Visit Orthopedic Surgery [facility] 250 175 [facility] 250 [place] [phone] Jerardo Kelley, DEIDRA Pain in toes of both feet (Primary Dx); Arthritis of both feet; Ingrown right big toenail; PVD (peripheral vascular disease) ([facility]); Dermatophytosis, nail 05/31/2024 3:30 PM EDT Treatment [address] [phone] Olu English PTA Displaced intertrochanteric fracture of left femur, sequela (Primary Dx) 05/02/2024 5:00 PM EST Evaluation [address] [phone] David Faith, PT Displaced intertrochanteric fracture of left femur, sequela (Primary Dx); Pain of left hip 04/30/2024 4:08 PM EST - 04/30/2024 11:59 PM EST Hospital Encounter Radiology Department - [address] [phone] Lower extremity edema Discharge Disposition: Home or Self Care 04/16/2024 4:30 PM EST Office Visit Adult Medicine [address] [phone] Zeke Herrera MD Prostate cancer ([facility]) (Primary Dx); MCI (mild cognitive impairment); Lower extremity edema; History of DVT (deep vein thrombosis); Elevated blood pressure reading 03/28/2024 2:00 PM EST Treatment [address] [phone] Gene Traore, PT Displaced intertrochanteric fracture of left femur, sequela (Primary Dx) 03/26/2024 2:00 PM EST Treatment [address] [phone] Gene Traore, PT Displaced intertrochanteric fracture of [...] Negative examination UPPER GASTROINTESTINAL ENDOSCOPY 2004 PROCEDURE: AR UPPER GI ENDOSCOPY PERFORMED; COMMENT: Reflux esophagitis CHOLECYSTECTOMY 03/07/2015 PROCEDURE: HISTORICAL CHOLECYSTECTOMY; COMMENT: Negative IOC. PARATHYROIDECTOMY 2012 PROCEDURE: HISTORICAL PARATHYROIDECTOMY; COMMENT: Symptomatic hyperparathyroidism KIDNEY STONE SURGERY PROCEDURE: AR NEPHROLITHOTOMY REMOVAL CALCULUS; COMMENT: History of multiple procedures for stones COLONOSCOPY 2016 PROCEDURE: HISTORICAL COLONOSCOPY; COMMENT: small right colon [...] Orientation Straight 06/15/2024 3: 08 PM EDT Obstetrics History Last Filed Vital Signs Vital Sign Reading Time Taken Comments Blood Pressure 146/76 04/16/2024 4:31 PM EST Pulse 81 04/16/2024 4:31 PM EST Temperature 36.5 ??C (97.7 ??F) 04/16/2024 4:31 PM ES T Respiratory Rate 14 04/16/2024 4:31 PM EST Oxygen Saturation 98% 04/16/2024 4:31 PM EST Inhaled Oxygen Concentration - - Weight 70.3 kg (155 lb) 06/11/2024 1:41 PM EDT Height 162.6 cm (5' 4.02 ) 06/11/2024 1:41 PM ED T Body Mass Index 26.59 06/11/2024 1:41 PM EDT Plan of Treatment Upcoming Encounters Date Type Department Care Team (Late st Contact Info) Description 06/21/2024 11:00 AM EDT Treatment [facility] [address] [phone] Leeroy Graham PTA 06/25/2024 11:00 AM EDT Treatment [facility] [address] [phone] David Faith, PT 175 [place] [address] 06/27/2024 1:30 PM EDT Treatment [facility] 175 [facility] [address] [place] [phone] David Faith, PT 175 [place] [address] 07/19/2024 8:00 AM EDT Office Visit Adult Medicine [facility] [address] [place] [phone] Zeke Herrera MD [address] [place] [address] 08/15/2024 1:30 PM EDT Office Visit Orthopedic Surgery [facility] [address] [phone] Jerardo Kelley, DPM [address] [address] Health Maintenance Due Date Last Done Comments RSV Immunization Patients 60+ Years Old (1 - 1-dose 75+ series) 2021 Social Influencers of Health Screening 02/27/2022 Depression Screening 06/22/2023 06/21/2022 Falls Risk Assessment 06/22/2023 06/21/2022 Medicare Annual Wellness Visit 06/22/2023 06/21/2022 COVID-19 Vaccine ( season) 2023 01/12/2023, 12/21/2021, 01/24/2021, Additional history exists Colorectal Cancer Screening: Colonoscopy 10/04/2024 Influenza Vaccine (Season Ended) 2024 12/27/2022, 12/21/2021, 12/30/2020, Additional history exists Cholesterol Screening (Lipid Panel) 06/22/2027 06/21/2022 DTaP,Tdap,and [...] Signed Date: 04/30/2024 18:08 ET Workstation ID: [id number] Transcribed By: Self Edit Transcribed Date: 04/30/2024 [...] Signed Date: 04/30/2024 18:08 ET Workstation ID: [id number] Transcribed By: Self Edit Transcribed Date: 04/30/2024 18:07 ET us Zeke Herrera MD CV VASCULAR PROCEDURES Final Re sult from Last 3 Months Insurance MEDICARE [facility] Care Teams College Instructor Relationship Specialty Start Date End Date Zeke Herrera MD [address] [place] [phone] PCP - General Internal Medicine 02/06/24
--- OUTSIDE RECORDS SUMMARY | 2024-06-19 16:15 | XMS_ITS | Encounter Summary ---
Author Organization [place] [address] Care Team Providers Care Hand Cementer Name Role Phone Zeke Herrera MD Primary Care Provider [phone] Reason for Visit * Therapy (Routine) - Authorized Specialty Diagnoses / Procedures Referred By Chris gant Referred To Contact Physical Therapy Diagnoses Displaced intertrochanteric fracture of left femur, initial encounter for closed fracture Randi Bui PA [address] [place] [address] Referral ID Status Reason Start Date Expiration Date Visits Requested Visits Authorized [id number] Authorized Consult and Treat 05/03/2024 05/03/2025 7 7 Encounter Details Date Type Department Care Team (Latest Contact Info) Description 06/15/2024 8:30 AM EDT Treatment [address] [phone] Onel George, MONTSE Displaced intertrochanteric fracture of left femur, sequela (Primary Dx); Pain of left hip Social History Tobacco Use Types Packs/Day Years [...] PM EDT documented as of this encounter Progress Notes * Onel George PTA - 06/15/2024 8:30 AM EDT [facility] - Outpatient PHYSICAL THERAPY DAILY TREATMENT NOTE - OP Date: 06/15/2024 Visit Number: 4 Patient Name: Jn Resendez : 1945 Age: 79 y.o. Gender: male Diagnosis: ICD-10-CM ICD-9-CM 1. Displaced intertrochanteric fracture of left femur, sequela S72.142S 820.21 2. Pain of left hip M25.552 719.45 Date of Onset/Surgery: 11/18/2023 Referring Provider: Randi Bui PA Insurance: Payor: GENERIC / Plan: GENERIC / Product Type: Indemnity / Patient Identified by: Onel George PTA Language: Speaks and understands Croatian as preferred language with no american indian policy specialist required Medications: Current Outpatient Medications on File Prior to Visit Medication Sig Dispense Refill acetaminophen (TYLENOL) 500 mg tablet Take 2 tablets (1,000 mg total) by mouth every 8 (eight) hours if needed for mild pain. calcium carbonate-vitamin D3 600 mg-10 mcg (400 unit) capsule Take by mouth. ciclopirox (PENLAC) 8 % solution Apply topically at bedtime. Apply over nail and surrounding skin. Apply daily over previous coat. After seven (7) days, may remove with alcohol and continue cycle. 6.6 mL 0 Eliquis 5 mg tablet TAKE ONE TABLET [...] risk: No SUBJECTIVE Subjective Report: Patient reports some aches but no biggie Chart Reviewed: Yes Pain: soreness only TREATMENT INTERVENTION: NuStep L5 x 5 mins sh 9 Calf Stretching on Slant board L knee flexion with foot on 8 in step x 30 Step ups to 6 in step x 10 - decreased to 4 in step x 25 reps due to pt hopping off of R foot at 6 in height Standing Hamstring curls with 2# x 20 reps Standing may x20 with 2# on L ankle Standing abd with 2# x20 reps Sit-stands with Airex pad on chair, 2x10 Heel raises x20 5 sec holds LAQ with 2# x 20 ASSESSMENT/Response to Treatment Good Tolerated exs well. Some difficulty with step ups to 6 in step. Very tight gastrocs Patient Education: Education provided: yes Education Provided To: Patient utilizing Printed Material mode(s) of education Response to Education: Verbal Understanding PLAN POC Development/Review: No Change in the Plan of Care; Participants: Patient Interventions Time Entry: Modalities: Therapeutic procedures: Therapeutic Exercise Time Entry: 29 Total Treatment Time: 29 mins Documentation completed by Onel George PTA documented in this encounter Plan of Treatment Upcoming Encounters Date Type Department Care Team (Late st Contact Info) Description 06/21/2024 11:[address] [facility] [address] [phone] Leeroy Graham PTA 06/25/2024 11:00 AM EDT Treatment [address] [phone] David Faith, PT 175 [place] [address] 06/27/2024 1:[address] [facility] [address] [phone] David Faith, PT 175 [place] [address] 07/19/2024 8:00 AM EDT Office Visit Adult Medicine [facility] 444 [place] [address] Zeke Herrera MD [address] [place] [address] 08/15/2024 1:30 PM EDT Office Visit Orthopedic Surgery - [place] [address] 175 [facility] [address] [phone] Jerardo Kelley, DPM [address] [address] documented as of this encounter Goals Goal [...] intertrochanteric fracture of left femur, sequela- Primary Pain of left hip documented in this encounter Care Teams Hand Cementer Relationship Specialty Start Date End Date Zeke Herrera MD [address] [place] [address] PCP - General Internal Medicine 02/06/24 documented as of this encounter
--- OUTSIDE RECORDS SUMMARY | 2024-06-19 16:15 | XMS_ITS | Encounter Summary ---
Author Organization [place] [address] Care Team Providers Care Pig Machine Operator Name Role Phone Zeke Herrera MD Primary Care Provider [phone] Reason for Visit * Therapy (Routine) - Authorized Specialty Diagnoses / Procedures Referred By Chris gant Referred To Contact Physical Therapy Diagnoses Displaced intertrochanteric fracture of left femur, initial encounter for closed fracture Randi Bui PA [address] [place] [address] Referral ID Status Reason Start Date Expiration Date Visits Requested Visits Authorized [id number] Authorized Consult and Treat 05/03/2024 05/03/2025 7 7 Encounter Details Date Type Department Care Team (Latest Contact Info) Description 06/19/2024 10:00 AM EDT Treatment [address] [phone] Olu English PTA Displaced intertrochanteric fracture of [...] Progress Notes * Olu English PTA - 06/19/2024 10:00 AM EDT [facility] - Outpatient PHYSICAL THERAPY DAILY TREATMENT NOTE - OP Date: 06/19/2024 Visit Number: 5 Patient Name: Jn Resendez : 1945 Age: 79 y.o. Gender: male Diagnosis: ICD-10-CM ICD-9-CM 1. Displaced intertrochanteric fracture of left femur, sequela S72.142S 820.21 Date of Onset/Surgery: Multiple active episodes found Referring Provider: Randi Bui PA Insurance: Payor: GENERIC / Plan: GENERIC / Product Type: Indemnity / Patient Identified by: Olu English PTA Language: Speaks and understands Tajik as preferred language with no telephone maintenance mechanic required Medications: Current Outpatient Medications on File [...] Chart Reviewed: Yes Pain: no complaints of pain TREATMENT INTERVENTION: NuStep L5 x 5 mins sh 9 Calf Stretching on Slant board L knee flexion with foot on 8 in step x 30 Step ups to 8 in step x 10 - increased VC Prone Hamstring curls x 20 reps Prone Hip Abd 10 reps LAQ with orange theraband x 20 ASSESSMENT/Response to Treatment Good response. Decreased flexibility with Hip Flexors and Hamstrings Patient Education: Education provided: yes Education Provided To: Patient utilizing Explanation mode(s) of education Response to Education: Applied Knowledge and Verbal Understanding PLAN POC Development/Review: No Change in the Plan of Care; Participants: Patient Interventions Time Entry: Modalities: Therapeutic procedures: Therapeutic Exercise Time Entry: 30 Total Treatment Time: 30 mins Documentation completed by Olu English PTA documented in this encounter Plan of Treatment Upcoming Encounters Date Type Department Care Team (Late st Contact Info) Description 06/21/2024 11:00 AM EDT Treatment [facility] [address] [phone] Leeroy Graham PTA 06/25/2024 11:00 AM EDT Treatment [address] [phone] David Faith, PT 175 [place] [address] 06/27/2024 1:30 PM EDT Treatment [address] [phone] David Faith, PT 175 [place] [address] 07/19/2024 8:00 AM EDT Office Visit Adult Medicine [address] [phone] Zeke Herrera MD [address] [place] [address] 08/15/2024 1:30 PM EDT Office Visit Orthopedic Surgery - [place] 250 175 [facility] 250 [place] [phone] Jerardo Kelley, DPM 175 [facility] 250 [place] [address] documented as of this encounter Goals Goal Patient Goal Type Associated Problems Recent Progress Patient-Stated? Author PT STG x 8 visits General Yes Daivd Faith PT Note: Pt will be able [...] Primary documented in this encounter Care Teams Pig Machine Operator Relationship Specialty Start Date End Date Zeke Herrera MD [address] [place] [address] PCP - General Internal Medicine 02/06/24 documented as of this encounter
--- OUTSIDE RECORDS SUMMARY | 2024-06-19 16:15 | XMS_ITS | Encounter Summary ---
Author Organization [employer] [place] [address] Care Team Providers Care Public Affairs Specialist Name Role Phone Zeke Herrera MD Primary Care Provider Encounter Details Date Type Department Care Team [...] Info) Description 06/21/2024 11:00 AM EDT Treatment [facility] [address] [phone] Leeroy Graham, MONTSE 06/25/2024 11:00 AM EDT Treatment [facility] [address] [phone] David Faith, PT 175 [place] [address] 06/27/2024 1:30 PM EDT Treatment [facility] 175 [facility] 350 [place] [phone] David Faith, PT 175 [place] [address] 07/19/2024 8:00 AM EDT Office Visit Adult Medicine [facility] 444 [place] [address] Zeke Herrera MD [address] [place] [address] 08/15/2024 1:30 PM EDT Office Visit Orthopedic Surgery - [place] [address] 175 [facility] 250 [place] [phone] Jerardo Kelley, DPM [address] [address] documented as of this encounter Goals Goal [...] on filedocumented in this encounter Care Teams Public Affairs Specialist Relationship Specialty Start Date End Date Zeke Herrera MD PCP - General 09/27/05 02/05/24 documented as of this encounter
== END 2024-06-19 14:11 | disposition home or self-care (01) ==
LOC: HO.HUSH 13:41
PROVIDERS: PCP Internal Medicine; Visit Provider Urology
DX: C61 Malignant neoplasm of prostate (principal)
CPT/HCPCS: 99213

== ENCOUNTER → 2024-06-19 13:41 | Outpatient (BNVA) | payer OTHER, MEDICARE, SELFPAY | PROVIDERS: PCP Internal Medicine; Visit Provider Urology ==

== ENCOUNTER 2024-07-03 10:23 | Outpatient (REF) | payer OTHER, MEDICARE, SELFPAY ==
--- NOTE | ~2024-07-03 | XR_ITS ---
EXAMINATION: XR HIP, LEFT CLINICAL INFORMATION: M25.552 - Pain in left hip COMPARISON: April 03, 2024. TECHNIQUE: Two views of the left hip. FINDINGS: Metallic hardware placed with a transfemoral head neck screw and intramedullary joanna from the instrumented region to the proximal diaphysis of the left femur. Old traumatic deformity with callus formation in the intercondylar region and lesser and greater trochanters. No acute cortical disruption or gross malalignment. Osteopenia versus osteoporosis. XR/XR hip LT min 2V IMPRESSION: Status post open reduction internal fixation of an intertrochanteric fracture left femur. Stable. Electronically signed by: Teddy De León MD 07/04/2024 01:44 PM EDT
--- OUTSIDE RECORDS SUMMARY | 2024-07-03 12:30 | XMS_ITS | Encounter Summary ---
Author Organization [facility] [place] [address] Care Team Providers Care Supervisor Leaf [place] Repair Name Role Phone Zeke Herrera MD Primary Care Provider [phone] Encounter Details Date Type Department Care Team (Late Contact Info) Description 01/09/2024 9:51 AM EDT [...] Encounters Date Type Department Care Team (Late Contact Info) Description 07/17/2024 3:00 PM EDT Treatment [address] [phone] Onel George PTA 07/19/2024 8:00 AM EDT Office Visit Adult [address] [phone] Zeke Herrera MD [address] [place] [address] 08/15/2024 1:30 PM EDT Office Visit Orthopedic Surgery - [place] 250 175 [facility] 250 [place] [phone] Jerardo Kelley, DPM 175 [facility] [address] [place] [address] documented as of this encounter Goals Goal Patient Goal Type Associated Problems Recent Progress Patient-Stated? Author PT STG x 8 visits General Improving(09/2024 12:21 PM EDT) Yes David Faith PT Note: Pt will be able to perform full bridge to improve bed mobility Pt will be able to perform one rep sit to stand without UE support Pt will improve hip add strength to 3/5 MET Pt will require no assist with supine to sit PT LTG x 15 visits General Improving(09/2024 12:21 PM EDT) No David Faith, PT Note: Pt will ambulate with symmetrical step length Pt will be able to perform 5 reps sit to stand without UE support Pt will be able to negotiate [address]c only documented as of this encounter Visit Diagnoses Not on filedocumented in this encounter Care Teams Supervisor [employer] [place] Repair Relationship Specialty Start Date End Date Zeke Herrera MD PCP - General 09/27/05 02/05/24 documented as of this encounter
--- OUTSIDE RECORDS SUMMARY | 2024-07-03 12:31 | XMS_ITS | Clinical Summary ---
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 Lifelong anticoagulation Left leg DVT ([facility] V24, [facility] V28) 05/04/19 06 Overview (05/28/2023): IMO update Esophageal reflux 02/01/2005 Encounters Date Type Department Care Team Description 06/27/2024 1:00 PM EDT Treatment [address] [phone] VianneyDavid rosenberg M, PT Displaced intertrochanteric fracture of left femur, sequela (Primary Dx); Pain of left hip 06/25/2024 11:00 AM EDT Treatment [address] [phone] VianneyJannethJaved, PT Displaced intertrochanteric fracture of left femur, sequela (Primary Dx); Pain of left hip 06/21/2024 11:00 AM EDT Treatment [address] [phone] Leeroy Graham, FUND DIRECTOR Displaced intertrochanteric fracture of left femur, sequela (Primary Dx) 06/19/2024 10:00 AM EDT Treatment [address] [phone] Olu English, FUND DIRECTOR Displaced intertrochanteric fracture of left femur, sequela (Primary Dx) 06/15/2024 8:30 AM EDT Treatment [address] [phone] Onel George, FUND DIRECTOR Displaced intertrochanteric fracture of left femur, sequela (Primary Dx); Pain of left hip 06/13/2024 12:00 PM EDT Treatment [address] [phone] Erich Sandy, FUND DIRECTOR Displaced intertrochanteric fracture of left femur, sequela (Primary Dx) 06/11/2024 1:30 PM EDT Office Visit Orthopedic Surgery [place] [address] [phone] Jerardo Kelley, DPM Pain in toes of both feet (Primary Dx); Arthritis of both feet; Ingrown right big toenail; PVD (peripheral vascular disease) ([facility] V24); Dermatophytosis, nail 05/31/2024 3:30 PM EDT Treatment [address] [phone] Olu English, FUND DIRECTOR Displaced intertrochanteric fracture of left femur, sequela (Primary Dx) 05/02/2024 5:00 PM EST Evaluation [address] [phone] David Faith, PT Displaced intertrochanteric fracture of left femur, sequela (Primary Dx); Pain of left hip 04/30/2024 4:08 PM EST - 04/30/2024 11:59 PM EST Hospital Encounter Radiology Department - [address] [phone] Lower extremity edema Discharge Disposition: Home or Self Care 04/16/2024 4:30 PM EST Office Visit Adult Medicine [address] [phone] Zeke Herrera MD Prostate cancer ([facility] V24, [facility] V28) (Primary Dx); MCI (mild cognitive impairment); Lower extremity edema; History of DVT (deep vein thrombosis); Elevated blood pressure reading from Last 3 Months Immunizations Name Administration [...] Negative examination UPPER GASTROINTESTINAL ENDOSCOPY 2004 PROCEDURE: [place] UPPER GI ENDOSCOPY PERFORMED; COMMENT: Reflux esophagitis CHOLECYSTECTOMY 03/07/2015 PROCEDURE: HISTORICAL CHOLECYSTECTOMY; COMMENT: Negative IOC. PARATHYROIDECTOMY 2012 PROCEDURE: HISTORICAL PARATHYROIDECTOMY; COMMENT: Symptomatic hyperparathyroidism KIDNEY STONE SURGERY PROCEDURE: [place] NEPHROLITHOTOMY REMOVAL CALCULUS; COMMENT: History of multiple [...] Care Team (Late st Contact Info) Description 07/17/2024 3:00 PM EDT Treatment [place] [address] [facility] [address] [place] [phone] Onel George, MONTSE 07/19/2024 8:00 AM EDT Office Visit Adult Medicine [facility] [address] [place] [address] Zeke Herrera MD [address] [place] [address] 08/15/2024 1:30 PM EDT Office Visit Orthopedic Surgery - [place] [address] 175 [facility] [address] [place] [phone] Jerardo Kelley, DEIDRA 175 [facility] [address] [place] [address] Health Maintenance Due Date Last Done Comments RSV Immunization Adult Patients (1 - 1-dose 75+ series) 2021 Social [...] age to complete this topic Meningococcal B Vaccine Aged Out No l onger eligible based on patient's age to complete [...] General Improving(09/2024 12:21 PM EDT) No David Faith PT Note: Pt will [...] Signed Date: 04/30/2024 18:08 ET Workstation ID: [id number] Transcribed By: Self Edit Transcribed Date: 04/30/2024 [...] Signed Date: 04/30/2024 18:08 ET Workstation ID: [id number] Transcribed By: Self Edit Transcribed Date: 04/30/2024 18:07 ET us Zeke Herrera MD CV VASCULAR PROCEDURES Final Re sult from Last 3 Months Insurance MEDICARE [facility] Care Teams Attendant Lodging Facilities Relationship Specialty Start Date End Date Zeke Herrera MD [address] [place] [id number] PCP - General Internal Medicine 02/06/24
== END 2024-07-03 10:24 | disposition home or self-care (01) ==
LOC: HO.HOSX 10:23
DX: M25.552 Pain in left hip (principal); S72.142D Displaced intertrochanteric fracture of left femur, subsequent encounter for closed fracture with routine healing; Z79.899 Other long term (current) drug therapy
CPT/HCPCS: 73502

== ENCOUNTER 2024-07-03 11:07 | Outpatient (AMB) | payer OTHER, MEDICARE, SELFPAY ==
--- NOTE | 2024-07-03 11:36 | A.OFFVIS_ITS ---
Intake Visit Reasons: OV-LT hip intertrochanteric FC DOS 11/18/23-xray Intake Note: Jn is a 78 year old male who presents today with his post operatively S/P ORIF of left hip intertrochanteric fracture with placement of a short gamma nail DOS: 11/18/2023 w/ Dr Churchill. Patient reports he is doing well and has continued with therapy. He states he has some mild discomfort and tiredness with ambulation. Allergies No Known Allergies Allergy (Verified 07/03/24 11:38) HPI HPI OV-LT hip intertrochanteric FC DOS 11/18/23-xray: Details: Jn is a 78 year old male who presents today with his post operatively S/P ORIF of left hip intertrochanteric fracture with placement of a short gamma nail DOS: 11/18/2023 w/ Dr Churchill. Patient reports he is doing well and has continued with therapy. He states he has some mild discomfort and tiredness with ambulation. COUNTS INCLUDE 234 BEDS AT [facility] Medical History Kidney stones Chronic anticoagulation Left leg DVT Prostate cancer Elevated PSA Surgical History History of cystoscopy Social History Household Members: Family and Children Housing: House Are you a primary intensive care specialist to a significant other at home: No Do you presently have visiting nurse or other home services: No Patient Tobacco Use Status: Never used Tobacco Advance Directives Date on File: 11/16/23 service: No Review of Systems Const All systems reviewed & are unremarkable except as noted in HPI and below Physical Exam Extrem Other: Incision site on left hip well-approximated and well-healed No evidence of surrounding erythema, ecchymosis No evidence of infection No erythema or edema noted Patient reports no tenderness to palpation about the left hip Patient is able to ambulate without difficulty Patient is able to forward flex the leg at the hip off of the chair he is sitting in without difficulty Distal sensation intact Capillary refill brisk Results Reviewed Results Reviewed: X-rays obtained in the office today and independently reviewed by me, Erich Mariano PA-C, demonstrate well approximated intertrochanteric fracture of left hip with intramedullary nail in place and in satisfactory clinical alignment with evidence of interval bony healing. Assessment & Plan Assessment & Plan (1) Closed intertrochanteric fracture of left femur: Code(s): S72.142A - Displaced intertrochanteric fracture of left femur, initial encounter for closed fracture Category: Medical (2) Chronic anticoagulation: Code(s): Z79.01 - penitentiary (current) use of anticoagulants Category: Medical Plan 1. Intertrochanteric fracture of the left hip status post IM nail placement DOS 11/18/2023 Patient appears to be recovering well postoperatively Patient is educated about the typical recovery course Patient is advised to continue with strict adherence to his previously prescribed DVT prophylaxis Patient was advised that he should continue with physical therapy to improve functional capacity Patient is educated that he should not have an issue with [place] the airport, but is provided with a note from our office stating that he does have metal implants in his left hip for his traveling to [place] Patient was amenable to this plan Patient will follow-up in 4 months with repeat x-rays, sooner with any acute concerns Orders: Orders XR hip LT min 2V Today M25.552 - Pain in left hip Coding Level of Care Code Est Pt Level 3 (46887) Diagnoses Closed intertrochanteric fracture of left femur S72.142A Chronic anticoagulation Z79.01
--- OUTSIDE RECORDS SUMMARY | 2024-07-03 13:40 | XMS_ITS | Clinical Summary ---
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 Lifelong anticoagulation Left leg DVT ([facility] V24, [facility] V28) 05/04/19 06 Overview (05/28/2023): IMO update Esophageal reflux 02/01/2005 Encounters Date Type Department Care Team Description 06/27/2024 1:00 PM EDT Treatment [address] [phone] VianneyDavid rosenberg M, PT Displaced intertrochanteric fracture of left femur, sequela (Primary Dx); Pain of left hip 06/25/2024 11:00 AM EDT Treatment [address] [phone] VianneyJannethJaved, PT Displaced intertrochanteric fracture of left femur, sequela (Primary Dx); Pain of left hip 06/21/2024 11:00 AM EDT Treatment [address] [phone] Leeroy Graham, LIBRARY SPECIALIST Displaced intertrochanteric fracture of left femur, sequela (Primary Dx) 06/19/2024 10:00 AM EDT Treatment [address] [phone] Olu English, LIBRARY SPECIALIST Displaced intertrochanteric fracture of left femur, sequela (Primary Dx) 06/15/2024 8:30 AM EDT Treatment [address] [phone] Onel George, LIBRARY SPECIALIST Displaced intertrochanteric fracture of left femur, sequela (Primary Dx); Pain of left hip 06/13/2024 12:00 PM EDT Treatment [address] [phone] Erich Sandy, LIBRARY SPECIALIST Displaced intertrochanteric fracture of left femur, sequela (Primary Dx) 06/11/2024 1:30 PM EDT Office Visit Orthopedic Surgery [place] [address] [phone] Jerardo Kelley, DPM Pain in toes of both feet (Primary Dx); Arthritis of both feet; Ingrown right big toenail; PVD (peripheral vascular disease) ([facility] V[facility]); Dermatophytosis, nail 05/31/2024 3:30 PM EDT Treatment [address] [phone] Olu English, LIBRARY SPECIALIST Displaced intertrochanteric fracture of left femur, sequela (Primary Dx) 05/02/2024 5:00 PM EST Evaluation [address] [phone] David Faith, PT Displaced intertrochanteric fracture of left femur, sequela (Primary Dx); Pain of left hip 04/30/2024 4:08 PM EST - 04/30/2024 11:59 PM EST Hospital Encounter Radiology Department - [address] [phone] Lower extremity edema Discharge Disposition: Home or Self Care 04/16/2024 4:30 PM EST Office Visit Adult Medicine [address] [phone] Zeke Herrera MD Prostate cancer ([facility] V24, [facility] V28) (Primary Dx); MCI (mild cognitive impairment); [...] Negative examination UPPER GASTROINTESTINAL ENDOSCOPY 2004 PROCEDURE: [place] UPPER GI ENDOSCOPY PERFORMED; COMMENT: Reflux esophagitis CHOLECYSTECTOMY 03/07/2015 PROCEDURE: HISTORICAL CHOLECYSTECTOMY; COMMENT: Negative IOC. PARATHYROIDECTOMY 2012 PROCEDURE: HISTORICAL PARATHYROIDECTOMY; COMMENT: Symptomatic hyperparathyroidism KIDNEY STONE SURGERY PROCEDURE: [place] NEPHROLITHOTOMY REMOVAL CALCULUS; COMMENT: History of multiple [...] Info) Description 07/17/2024 3:00 PM EDT Treatment [place] [address] [facility] 350 [place] [phone] Onel George, MONTSE 07/19/2024 8:00 AM EDT Office Visit Adult Medicine [facility] [address] [place] [phone] Zeke Herrera MD 444 [place] [address] 08/15/2024 1:30 PM EDT Office Visit Orthopedic Surgery - [place] 250 175 [facility] 250 [place] [phone] Jerardo Kelley, DEIDRA 175 [facility] 250 [place] [address] Health Maintenance Due Date Last Done Comments [...] Signed Date: 04/30/2024 18:08 ET Workstation ID: [id number] Transcribed By: Self Edit Transcribed Date: 04/30/2024 [...] Signed Date: 04/30/2024 18:08 ET Workstation ID: [id number] Transcribed By: Self Edit Transcribed Date: 04/30/2024 18:07 ET us Zeke Herrera MD CV VASCULAR PROCEDURES Final Re sult from Last 3 Months Insurance MEDICARE [facility] Care Teams Teletypesetter Relationship Specialty Start Date End Date Zeke Herrera MD [address] [place] [phone] PCP - General Internal Medicine 02/06/24
--- OUTSIDE RECORDS SUMMARY | 2024-07-03 13:40 | XMS_ITS | Encounter Summary ---
Author Organization [facility] [place] [address] Care Team Providers Care Steel Buffer Name Role Phone Zeke Herrera MD Primary Care Provider [phone] Encounter Details Date Type Department Care Team [...] Info) Description 07/17/2024 3:00 PM EDT Treatment [address] [phone] Onel George PTA 07/19/2024 8:00 AM EDT Office Visit Adult [address] [phone] Zeke Herrera MD [address] [place] [address] 08/15/2024 1:30 PM EDT Office Visit Orthopedic Surgery - [place] 250 175 [facility] 250 [place] [phone] Jerardo Kelley, DPM 175 [facility] [address] [place] [address] documented as of this encounter Goals Goal [...] on filedocumented in this encounter Care Teams Steel Buffer Relationship Specialty Start Date End Date Zeke Herrera MD PCP - General 09/27/05 02/05/24 documented as of this encounter
== END 2024-07-03 11:56 | disposition home or self-care (01) ==
LOC: HO.HOS 11:07
PROVIDERS: PCP Internal Medicine
DX: S72.142D Displaced intertrochanteric fracture of left femur, subsequent encounter for closed fracture with routine healing (principal)
CPT/HCPCS: 99213

== ENCOUNTER → 2024-07-03 11:12 | Outpatient (BNV) | payer OTHER, MEDICARE, SELFPAY | PROVIDERS: Visit Provider Radiology Diagnostic Radiology | DX: M25.552 Pain in left hip (principal) | CPT/HCPCS: 73502 ==

== ENCOUNTER 2024-08-24 10:34 | Emergency (ER) | payer OTHER, MEDICARE, SELFPAY ==
--- NOTE | ~2024-08-24 | XR_ITS ---
EXAMINATION: XR HAND 1-2 VIEWS RIGHT HISTORY: hand swelling COMPARISON: There are no prior studies available for comparison. FINDINGS: Three views of the right hand are submitted. There are small erosions involving the head of the metacarpal of the thumb proximal phalanx of the thumb. There is no fracture or dislocation. There is narrowing of the DIP joints and the interphalangeal joint of the thumb. There is soft tissue swelling of the index finger. There are vascular calcifications. XR/XR hand RT 2V IMPRESSION: Soft tissue swelling of the index finger. 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 Small erosions involving the metacarpal head and proximal phalanx of the thumb. Electronically signed by: Gene Rod MD 08/24/2024 11:42 AM EDT
--- NOTE | ~2024-08-24 | US_ITS ---
EXAMINATION: US TRIPLEX UPPER EXTREMITY, RIGHT CLINICAL INFORMATION: Right hand swelling, rule out DVT. COMPARISON: None available. TECHNIQUE: Color-flow triplex imaging with spectral analysis and compression Doppler was performed on the right upper extremity. FINDINGS: The right internal jugular, subclavian, and axillary veins are patent and free of thrombus. The imaged segment of the right brachiocephalic vein is patent. Spectral doppler waveforms are normal. The brachial, basilic, cephalic, radial, and ulnar veins are patent and compressible. US/US venous duplex UE RT IMPRESSION: No evidence of deep venous thrombosis involving the right upper extremity. Electronically signed by: Isai Moffett MD 08/24/2024 12:14 PM EDT
[2024-08-24 10:52] VITALS: PULSE 77; RESP 18; O2SAT 96; BMI 24.2
[2024-08-24 11:00] VITALS: BP 145/75; PULSE 69; RESP 12; TEMP 36.6; O2SAT 96
--- NOTE | 2024-08-24 11:03 | ED_ITS ---
HPI - Extremity Problem General Chief complaint: Extremity Injury, Upper Stated complaint: R Hand Pain Time Seen by Provider: 08/24/24 10:52 Source: patient Mode of arrival: ambulatory Limitations: no limitations History of Present Illness ED Provider: Nathaniel Tang HPI Narrative: 79 yold male with pmh of DVT and prostate cancer presents to the ED for right hand swelling for the past 3 days without any trauma. Patient states no chest pain, bluish black discloration, hotness, coldness, or numbness/tingling. Patient states no fever, chills, recent travel, or recent surgery. patient is on eliquis. Related Data Home Medications ?Medication ?Instructions ?Recorded ?Confirmed apixaban 5 mg tablet 5 mg PO BID 06/04/20 11/15/23 calcium carbonate (Calcium 600) 600 mg PO BID 11/15/23 11/15/23 memantine 7 mg capsule 7 mg PO BEDTIME 11/15/23 11/15/23 sprinkle,extended release 24hr apixaban 5 mg tablet (Eliquis) 5 mg PO BID 11/30/23 Previous Rx's ?Medication ?Instructions ?Recorded acetaminophen 325 mg tablet 650 mg (2 x 325 mg) PO Q6H PRN 11/25/23 Pain, Mild (Pain Scale 1-3), fever or headache #10 tabs finasteride 5 mg tablet 5 mg PO DAILY 90 days #90 tabs 01/12/24 oxycodone 5 mg capsule 5 mg PO Q8H PRN pain #9 caps 08/24/24 prednisone 20 mg tablet 40 mg (2 x 20 mg) PO DAILY 5 days 08/24/24 #10 tabs Allergies Allergy/AdvReac Type Severity Reaction Status Date / Time No Known Allergies Allergy Verified 08/24/24 10:55 Review of Systems 2 Review of Systems: right hand swelling Yes all other systems are reviewed and are negative PMFSH Past Medical History Medical History Kidney stones Chronic anticoagulation Left leg DVT Prostate cancer Elevated PSA Surgical History History of cystoscopy Social History Social History Household Members: Family and Children Housing: House Are you a primary health care liaison to a significant other at home: No Do you presently have visiting nurse or other home services: No Patient Tobacco Use Status: Never used Tobacco Advance Directives Date on File: 11/16/23 service: No Physical Exam 2 Vital Signs: Vital Signs: Last Vital Signs Temp 98.2 F 08/24/24 14:54 Pulse 58 08/24/24 14:54 Resp 16 08/24/24 14:54 BP 150/79 H 08/24/24 14:54 Pulse Ox 98 08/24/24 14:54 O2 Del Method Room Air 08/24/24 14:54 BMI result Body Mass Index 24.2 Const: General: cooperative, healthy appearing, comfortable, no acute distress, well developed, alert, awake and Physically active O rientation/consciousness: patient oriented x3 HEENT: Head: Yes normal to inspection, Yes No palpable skull fracture present, Yes normocephalic and Yes atraumatic Eyes: General: appearance normal, both eyes and all related structures Neck: Neck: Yes normal visual inspection, Yes full ROM, Yes no lymphadenopathy, Yes no meningeal signs, Yes trachea midline, Yes supple, No anterior neck swelling and No tender Chest: Chest palpation & inspection: normal inspection of the chest and normal palpation of entire chest wall Resp: Effort & Inspection: normal respiratory effort and able to speak in complete sentences Auscultation: clear to auscultation bilaterally Cardio: Jugular venous distension: no JVD Heart sounds: S1 normal heart sound present and S2 normal heart sound present GI: Inspection: Yes normal to inspection Palpation (GI): Soft to palpation, not firm, nontender, no guarding and not rigid : General: Yes no CVA tenderness Back/Spine/Pelvis: Back: no CVA tenderness and No back tenderness Skin: General skin exam: no rashes or lesions noted, elasticity normal and turgor normal Neuro: General: patient oriented x3, gait normal, tone normal, moves all extremities, Normal light touch and pain sensation, no meningeal signs, no focal motor deficits, CN's II-XI intact bilaterally and normal sensation to monofilament Extrem: Other: Negative for erythema, warmth, stiffness, crepitus, or ecchymosis. Vascular/motor/neuro exam intact General: Yes normal to inspection and Yes full ROM Hand/finger images: 1. And tenderness on palpation. Negative for warmth, erythema, ecchymosis, crepitus, pus discharge, foul odor, or open wound. Rest of extremity normal. Motor/neuro/vascular exam intact. Negative for signs of tenosynovitis. Psych: Appearance: grossly normal, well kempt and not disheveled Medications Administered Discontinued Medications Generic Name Dose Route Start Last Admin Trade Name Freq PRN Reason Stop Dose Admin Methylprednisolone Sodium Succinate 125 mg 08/24/24 11:54 08/24/24 12:49 Methylprednisolone Sod Succ 125 Mg Vial IVPUSH 08/24/24 11:55 125 mg ONCE ONE Administration Medical Decision Making Medical Decision Making [facility] Narrative: [age] year male history of DVT and prostate cancer presents to ED for right hand swelling most near the 2nd metacarpal joint. Presently physical exam does not indicate sepsis or tenosynovitis. We will do labs ultrasound x-ray. 2:14pm: Patient symptoms improved and able to move all fingers of right upper extremities and fingers after IV solumedrol. Ultrasound negative for DVT. Patient negative for elevated white blood cell count. Uric acid negative. X-ray shows RTO gastritis of joints. X-ray states also small erosions which can be seen in osteoarthritis and rheumatoid arthritis. X-ray reading physical exam and images were discussed with Dr. Harrell who agrees this is not osteomyelitis and patient can be discharged. Patient will be discharged with Tylenol, narcotic and steroids. Patient would not be discharged with NSAIDs due to being on Eliquis Differential Diagnosis Differential Diagnoses: The differential diagnosis associated with the presentation includes (DVT, osteomyelitis, cellulitis) Admission/Observation Consideration of admission/observation: Escalation of care including admission/observation considered Lab Data [facility] Lab Attestation statement: I reviewed the patient's lab results. 08/24/24 12:24 08/24/24 12:24 Labs: Lab Results 08/24/24 Range/Units 12:24 WBC 7.9 (4.8-10.8) X10*3/uL RBC 4.41 L (4.60-5.80) X10*6/uL Hgb 12.8 L (14.0-18.0) g/dl Hct 38.3 L (42.0-52.0) % MCV 86.8 (80.0-98.0) fL MCH 29.0 (27.0-33.0) pg MCHC 33.4 (31.0-36.0) g/dl RDW 13.7 (11.0-16.0) % Plt Count 251 (160-400) X10*3/uL MPV 9.5 (9.4-12.4) fL Immature Gran % (Auto) 0.1 (0.0-0.4) % Neut % (Auto) 59.8 (45-73) % Lymph % (Auto) 17.8 L (20-40) % Collin % (Auto) 9.8 (2-11) % Eos % (Auto) 12.2 H (0-4) % Baso % (Auto) 0.3 (0-2) % Lymph # (Auto) 1.4 (1.2-4.9) X10*3/uL Collin # (Auto) 0.8 (0.1-1.2) X10*3/uL Eos # (Auto) 1.0 H (0.0-0.4) X10*3/uL Baso # (Auto) 0.0 (0.0-0.2) X10*3/uL Abs Immat Gran (auto) 0.01 (0.00-0.03) X10*3/uL Absolute Neuts (auto) 4.7 (2.0-8.3) x10*3/uL Absolute Nucleated RBC 0.000 (0.0-0.012) X10*3/uL Nucleated RBC % (auto) 0.0 (0.0-0.2) /100WBC ESR 16 H (0-15) MM/HR PT 15.6 H (10.9-12.4) SEC INR 1.4 H (0.9-1.1) APTT 31.0 (26.0-36.8) SEC Sodium 138 (135-145) mmol/L Potassium 4.0 (3.3-5.1) mmol/L Chloride 106 (96-108) mmol/L Carbon Dioxide 27 (22-29) mmol/L Anion Gap 9 L (12-20) BUN 16 (9-16) mg/dL Creatinine 0.88 (0.5-1.4) mg/dL Estim Creat Clear Calc 62.4 Estimated GFR > 60 Random Glucose 128 H (60-115) mg/dL Uric Acid 5.2 (3.4-7.0) mg/dL Calcium 8.7 D (8.4-10.2) mg/dL Total Bilirubin 0.2 (0.0-1.0) mg/dL AST 27 (5-37) U/L ALT 29 (0-40) U/L Alkaline Phosphatase 127 H (39-117) U/L C-Reactive Protein 2.04 H (< or = 0.50) mg/dL Total Protein 6.7 (6.5-8.0) g/dL Albumin 3.5 (3.5-5.0) g/dL Independent Interpretation I performed an independent interpretation of an: Plain X-Ray and Ultrasound Radiology Impression Discussion of test interpretation with radiology: I have reviewed the radiologist's reading. Independent Historian Clinical information obtained from an independent historian. History obtained from or confirmed by: Other (patient) Prescription Management I considered prescription management with: Pain Medication Discharge Plan Discharge Clinical Impression: Osteoarthritis, Hand swelling Patient Disposition: Home, Self-Care Instructions: Osteoarthritis (ED) Additional Instructions: Recommend follow-up with primary care provider and orthopedic surgeon. Return to the ED immediately for any redness, stiffness, fever, chills, bluish black discoloration, hotness, coldness, numbness/tingling, or any other concerning symptoms. Continue taking nypy-kxk-eoazeup Tylenol as needed. FINDINGS: Three views of the right hand are submitted. There are small erosions involving the head of the metacarpal of the thumb proximal phalanx of the thumb. There is no fracture or dislocation. There is narrowing of the DIP joints and the interphalangeal joint of the thumb. There is soft tissue swelling of the index finger. There are vascular calcifications. XR/XR hand RT 2V IMPRESSION: Soft tissue swelling of the index finger. 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 Small erosions involving the metacarpal head and proximal phalanx of the thumb. [address] [address] Ultrasound Report Signed Patient: Jn Kirkpatrick MR#: [id number] : 1945 Acct:[id number] Age/Sex: 79 / M ADM Date: 08/24/24 Loc: HO.ED Attending Dr: Ordering Physician: Nathaniel Tang Date of Service: 08/24/24 Procedure(s): US venous duplex UE RT Accession Number(s): [id number] cc: Nathaniel Tang; Zeke Herrera III, MD~ EXAMINATION: US TRIPLEX UPPER EXTREMITY, RIGHT CLINICAL INFORMATION: Right hand swelling, rule out DVT. COMPARISON: None available. TECHNIQUE: Color-flow triplex imaging with spectral analysis and compression Doppler was performed on the right upper extremity. FINDINGS: The right internal jugular, subclavian, and axillary veins are patent and free of thrombus. The imaged segment of the right brachiocephalic vein is patent. Spectral doppler waveforms are normal. The brachial, basilic, cephalic, radial, and ulnar veins are patent and compressible. US/US venous duplex UE RT IMPRESSION: No evidence of deep venous thrombosis involving the right upper extremity. Electronically signed by: Isai Moffett MD 08/24/2024 12:14 PM EDT RP Prescriptions: New prednisone 20 mg tablet 40 mg PO DAILY 5 Days Qty: 10 0RF oxycodone 5 mg capsule 5 mg PO Q8H PRN (Reason: pain) Qty: 9 0RF Rx Instructions: Partial Fill upon patient request. side effect is drowsiness. Do not take at work or while driving. No Action finasteride 5 mg tablet 5 mg PO DAILY 90 Days Qty: 90 1RF memantine 7 mg capsule,sprinkle,ER 24hr 7 mg PO BEDTIME calcium carbonate [Calcium 600] 600 mg calcium (1,500 mg) Tablet 600 mg PO BID acetaminophen 325 mg Tablet 650 mg PO Q6H PRN (Reason: Pain, Mild (Pain Scale 1-3), fever or headache) Qty: 10 0RF apixaban 5 mg tablet 5 mg PO BID Eliquis 5 mg tablet 5 mg PO BID Referrals: [facility] Orthopedic Surgeons [Provider Group] (Hand swelling. Osteoarthritis) Interventions: ED Discharge Assessment Last Done: 08/24/24 14:54 Discharge Date/Time: 08/24/24 14:54 Print Language: Filipino
--- OUTSIDE RECORDS SUMMARY | 2024-08-24 11:51 | XMS_ITS | Encounter Summary ---
Author Organization [place] [address] Care Team Providers Care Outdoor Emergency Care Technician Name Role Phone Zeke Herrera MD Primary Care Provider [phone] Encounter Details Date Type Department Care Team [...] Department Care Team (Late Contact Info) Description 08/29/2024 12:15 PM EDT Treatment [facility] Outpatient Rehabilitation [facility] 175 [facility] 350 [place] [address] David Faith, PT 175 [place] [address] 10/09/2024 3:00 PM EDT Consult [facility] [place] [address] [place] [address] Kylie Toro MD [address] [facility] [address] [place] [address] 10/17/2024 1:30 PM EDT Office Visit Orthopedic Surgery [facility] [place] [address] [phone] Jerardo Kelley, DPM [address] [address] 01/28/2025 1:15 PM EST Office Visit Adult Medicine [facility] [address] [place] [address] Zeke Herrera MD 444 [place] [address] documented as of this encounter Goals Goal [...] on filedocumented in this encounter Care Teams Outdoor Emergency Care Technician Relationship Specialty Start Date End Date Zeke Herrera MD PCP - General 09/27/05 02/05/24 documented as of this encounter
[2024-08-24 12:36] LABS: MANUAL DIFF FLAG NO
[2024-08-24 12:38] LABS: Basophils Percent Auto 0.3 % (0-2); Eosinophils Percent Auto 12.2 % (0-4); Hematocrit 38.3 % (42.0-52.0); Hemoglobin 12.8 g/dl (14.0-18.0); Imm Gran Abs Auto 0.01 X10*3/uL (0.00-0.03); Imm Gran Pct Auto 0.1 % (0.0-0.4); Lymphocytes Absolute Auto 1.4 X10*3/uL (1.2-4.9); Lymphocytes Percent Auto 17.8 % (20-40); Mean Corpuscular HGB Conc 33.4 g/dl (31.0-36.0); Mean Corpuscular Volume 86.8 fL (80.0-98.0); Mean Platelet Volume 9.5 fL (9.4-12.4); Monocytes Absolute Auto 0.8 X10*3/uL (0.1-1.2); Monocytes Percent Auto 9.8 % (2-11); Neutrophils Absolute Auto 4.7 x10*3/uL (2.0-8.3); Neutrophils Percent Auto 59.8 % (45-73); Platelet Count 251 X10*3/uL (160-400); Red Blood Count 4.41 X10*6/uL (4.60-5.80); Red Cell Distribution Width 13.7 % (11.0-16.0); White Blood Count 7.9 X10*3/uL (4.8-10.8)
[2024-08-24 12:46] LABS: INTERNATIONAL NORM RATIO 1.4 (0.9-1.1); Prothrombin Time 15.6 SEC (10.9-12.4)
[2024-08-24 13:15] LABS: Erythrocyte Sedimentation Rate 16 MM/HR (0-15)
[2024-08-24 13:18] VITALS: BP 150/79; PULSE 58; RESP 16; O2SAT 98
[2024-08-24 13:50] LABS: Alanine Aminotransferase 29 U/L (0-40); Albumin Level 3.5 g/dL (3.5-5.0); Alkaline Phosphatase 127 U/L (39-117); Anion Gap 9 (12-20); Aspartate Amino Transferase 27 U/L (5-37); Bilirubin Total 0.2 mg/dL (0.0-1.0); Blood Urea Nitrogen 16 mg/dL (9-16); C Reactive Protein 2.04 mg/dL (< or = 0.50); Calcium 8.7 mg/dL (8.4-10.2); Carbon Dioxide 27 mmol/L (22-29); Chloride 106 mmol/L (96-108); Creatinine Clr Calc Pharmacy 62.4; Estimated Glomerular Filt Rate > 60; Glucose Random 128 mg/dL (60-115); Sodium 138 mmol/L (135-145); Total Protein 6.7 g/dL (6.5-8.0); Uric Acid 5.2 mg/dL (3.4-7.0)
[2024-08-24 14:54] VITALS: BP 150/79; PULSE 58; RESP 16; TEMP 36.8; O2SAT 98
== END 2024-08-24 14:54 | disposition home or self-care (01) ==
PROVIDERS: Physician Assistant; Emergency Provider Emergency Medicine; PCP Internal Medicine
DX: M19.041 Primary osteoarthritis, right hand (principal); M79.641 Pain in right hand; R60.0 Localized edema; Z79.899 Other long term (current) drug therapy
CPT/HCPCS: 36415; 73120; 80053; 84550; 85025; 85610; 85652; 85730; 86140; 93971; 99283; 99284; J2919

== ENCOUNTER → 2024-08-24 11:04 | Outpatient (BNV) | payer OTHER, MEDICARE, SELFPAY | PROVIDERS: Emergency Provider Emergency Medicine; PCP Internal Medicine; Visit Provider Radiology Diagnostic Radiology | DX: R22.31 Localized swelling, mass and lump, right upper limb (principal); M19.041 Primary osteoarthritis, right hand | CPT/HCPCS: 73120; 93971 ==

== ENCOUNTER 2024-11-15 16:44 | Outpatient (REF) | payer OTHER, MEDICARE, SELFPAY ==
--- OUTSIDE RECORDS SUMMARY | 2024-01-09 09:51 | XMS_ITS | Encounter Summary ---
Author Organization [facility] [place] [address] Care Team Providers Care Cocoa Milling Machine Operator Name Role Phone Zeke Herrera MD Primary Care Provider [phone] Encounter Details Date Type Department Care Team [...] Info) Description 11/21/2024 2:30 PM EDT Treatment [facility] Out[facility] 175 [facility] 350 [place] [address] David Faith, PT 175 [place] [address] 12/19/2024 2:45 PM EDT Office Visit Orthopedic Surgery [facility] 250 175 [facility] [address] [place] [phone] Jerardo Kelley, DPM 230 [place] [phone] 01/28/2025 1:15 PM EST Office Visit Adult Medicine [facility] 444 [place] [phone] Zeke Herrera MD [address] [place] [phone] documented as of this encounter Goals Goal [...] on filedocumented in this encounter Care Teams Cocoa Milling Machine Operator Relationship Specialty Start Date End Date Zeke Herrera MD PCP - General 09/27/05 02/05/24 documented as of this encounter
--- OUTSIDE RECORDS SUMMARY | 2024-11-13 11:00 | XMS_ITS | Encounter Summary ---
Author Organization [employer] [place] [address] Care Team Providers Care Sandwich Artist Name Role Phone Zeke eHrrera MD Primary Care Provider [phone] Encounter Details Date Type Department Care Team (Late st Contact Info) Description 11/13/2024 11:00 AM EDT Treatment [address] [address] Leeroy Graham, MONTSE Pain of left hip (Primary Dx) Social History Tobacco Use Types [...] as of this encounter Progress Notes * Leeroy Graham PTA - 11/13/2024 11:00 AM EDT [facility] - Outpatient PHYSICAL THERAPY DAILY TREATMENT NOTE - OP Date: 11/13/2024 Visit Number: 14 Patient Name: Jn Resendez : 1945 Age: 79 y.o. Gender: male Diagnosis: ICD-10-CM ICD-9-CM 1. Pain of left hip M25.552 719.45 Date of Onset/Surgery: 11/18/2023 Referring Provider: Randi Bui PA Insurance: Payor: [employer] / Plan: CORVEL / Product Type: *No Product type* / Patient Identified by: Leeroy Graham PTA Language: Speaks and understands Tuvaluan as preferred language with no senior data mining analyst required Medications: Current Outpatient Medications on File [...] none Fall risk: No SUBJECTIVE Subjective Report: Pt reports a feeling pretty good today could be better could be worse DEMARIO Chart Reviewed: Yes Pain: patient reports pain level 5/10 left thigh TREATMENT INTERVENTION: patient late for appointment NuStep L 6 x 5 mins seat 8 Standing hamstring and hip flexor stretch with foot on TRUE 2 x 30 sec hold Calf Stretching on Slant board 3 x 20 sec single legs shuttle 3 x 10 4 cords (B) standing hip abd 2 x 10 oranege tband bridging x20 5 SEC HOLDS standing marching with orange tband x 20 (B) HIP EXT with hand wt as visual to step over 20 reps B-held Seated knee flexion with orange tband x 20 (B)-held Step ups to 6 in step 2 x 10 side step ups x 10 4 in ASSESSMENT/Response to Treatment Good Patient Education: Education provided: yes Education Provided To: Patient utilizing Explanation mode(s) of education Response to Education: Verbal Understanding, decreased carry over due to cognitive decline. PLAN POC Development/Review: No Change in the Plan of Care; Participants: Patient Interventions Time Entry: Modalities: Therapeutic procedures: Total Treatment Time: 30mins Documentation completed by Leeroy Graham PTA documented in this encounter Plan of Treatment Upcoming Encounters Date Type Department Care Team (Late st Contact Info) Description 11/21/2024 2:30 PM EDT Treatment [facility] Outpatient Rehabilitation [facility] 175 [facility] 350 [place] [phone] David Faith, PT 175 [place] [address] 12/19/2024 2:45 PM EDT Office Visit Orthopedic Surgery [facility] [address] [phone] Jerardo Kelley, DEIDRA 230 [place] [address] 01/28/2025 1:15 PM EST Office Visit Adult Medicine [facility] [address] [place] [phone] Zeke Herrera MD [address] [place] [address] documented as of this encounter Goals Goal [...] as of this encounter Visit Diagnoses Diagnosis Pain of left hip- Primary documented in this encounter Care Teams Sandwich Artist Relationship Specialty Start Date End Date Zeke Herrera MD 4 [place] [address] PCP - General Internal Medicine 02/06/24 documented as of this encounter
--- OUTSIDE RECORDS SUMMARY | 2024-11-14 14:30 | XMS_ITS | Encounter Summary ---
Author Organization [employer] [address] Care Team Providers Care Municipal Clerk Name Role Phone Zeke Herrera MD Primary Care Provider [phone] Encounter Details Date Type Department Care Team (Latest Contact Info) Description 11/14/2024 2:30 PM EDT Treatment [facility] [address] [phone] David Faith, PT 175 [place] [address] Pain of left hip (Primary Dx); Displaced [...] Faith, PT - 11/14/2024 2:30 PM EDT [facility] Outpatient PHYSICAL THERAPY RE-EVALUATION/Progress Report Date: 11/14/2024 [...] David Faith, PT Language: Speaks and understands Lao as preferred language with no behavior interventionist required Chart Reviewed: Yes Medications: Current Outpatient [...] Minutes Documentation completed by David Faith, PT [address] [address] Dept: [phone] Dept PATIENT NAME: Jn Resendez : 1945 [...] Info) Description 11/21/2024 2:30 PM EDT Treatment [facility] Outpatient Rehabilitation [facility] [address] [phone] David Faith PT 175 [place] [address] 12/19/2024 2:45 PM EDT Office Visit Orthopedic Surgery [facility] [address] [phone] Jerardo Kelley, DPKristin 230 [place] [address] 01/28/2025 1:15 PM EST Office Visit Adult Medicine [facility] [address] [place] [phone] Zeke Herrera MD 4 [place] [address] documented as of this encounter Goals Goal [...] sequela documented in this encounter Care Teams Municipal Clerk Relationship Specialty Start Date End Date Zeke Herrera MD [address] [place] [address] PCP - General Internal Medicine 02/06/24 documented as of this encounter
--- NOTE | ~2024-11-15 | XR_ITS ---
EXAMINATION: XR HIP 2 OR MORE VIEWS LEFT HISTORY: M25.552 - Pain in left hip COMPARISON: Comparison is made with the prior examination dated 07/03/2024. FINDINGS: A single AP view of the pelvis and two views of the left hip are submitted. The patient is again noted to be status post internal fixation of intertrochanteric fracture with a compression screw and intramedullary joanna. The hardware is intact. There is no new fracture or dislocation. There is mild narrowing of the joint space. The soft tissues are unremarkable. XR/XR hip LT min 2V IMPRESSION: Internal fixation of the left hip. Electronically signed by: Gene Rod MD 11/16/2024 09:52 AM EDT
--- OUTSIDE RECORDS SUMMARY | 2024-11-15 16:47 | XMS_ITS | Clinical Summary ---
Author Organization 175 [facility] Address 175 [place] [address] Phone Care Team Providers Care Rn Neonatal Name Role Phone Zeke Herrera MD Primary Care Provider [phone] Allergies No known active allergies Medications acetaminophen [...] 1 (one) time each day. 3 Active finasteride (PROPECIA) 1 mg tablet Take 1 tablet (1 mg total) by mouth 3 (three) times a week. Do not crush, chew, or split. Active Eliquis 5 mg tablet TAKE ONE TABLET BY MOUTH TWICE A DAY 180 tablet 1 5 Active memantine (NAMENDA XR) 21 mg extended release capsule TAKE 1 CAPSULE BY MOUTH ONCE A DAY. 90 capsule 1 5 Active memantine (Namenda XR) 21 mg extended release capsule Take 1 capsule (21 mg total) by mouth 1 (one) time each day. 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 Lifelong anticoagulation Left leg DVT ([facility] V24, [facility] V28) 05/04/19 06 Overview (05/28/2023): IMO update Esophageal reflux 02/01/2005 Encounters Date Type Department Care Team Description 11/14/2024 2:30 PM EDT Treatment [facility] [address] [phone] David Faith, PT Pain of left hip (Primary Dx); Displaced intertrochanteric fracture of left femur, sequela 11/13/2024 11:00 AM EDT Treatment [facility] [address] [phone] Leeroy Graham, ADMEASURER Pain of left hip (Primary Dx) 11/06/2024 1:00 PM EDT Treatment [facility] [address] [phone] Ercih Sandy, ADMEASURER Pain of left hip (Primary Dx) 10/24/2024 9:30 AM EDT Treatment [address] [phone] Olu English, ADMEASURER Pain of left hip (Primary Dx) 10/23/[address] [phone] VianneyDavid rosenberg, PT 10/17/2024 2:30 PM EDT Treatment [address] [phone] VianneyDvaid rosenberg M, PT Pain of left hip (Primary Dx); Displaced intertrochanteric fracture of left femur, sequela 10/17/2024 1:30 PM EDT Office Visit Orthopedic Surgery [facility] 250 175 [facility] 250 [place] [phone] Jerardo Kelley, DPM Pain in toes of both feet (Primary Dx); Ingrown right big toenail; Arthritis of both feet; PVD (peripheral vascular disease) (CMS/[facility] V24); Dermatophytosis, nail 10/15/2024 5:00 PM EDT Treatment [address] [phone] VianneyDavid rosenberg M, PT Pain of left hip (Primary Dx); Displaced intertrochanteric fracture of left femur, sequela 10/11/2024 11:15 AM EDT Treatment [address] [phone] Leeroy Graham, ADMEASURER Pain of left hip (Primary Dx); Displaced intertrochanteric fracture of left femur, sequela 10/09/2024 3:00 PM EDT Consult Vascular Surgery [facility] 300 [facility] 210 [place] [phone] Kylie Toro MD Post-phlebitic syndrome (Primary Dx); Lower extremity edema; Chronic deep vein thrombosis (DVT) of distal vein of lower extremity, unspecified laterality (CMS/HCC V24, [facility] V28) 09/19/2024 1:45 PM EDT Treatment [address] [phone] VianneyJannethJaved, PT Pain of left hip (Primary Dx); Displaced intertrochanteric fracture of left femur, sequela 09/13/2024 1:30 PM EDT Treatment [address] [phone] Olu English, ADMEASURER Pain of left hip (Primary Dx) 09/10/2024 3:00 PM EDT Treatment [address] [phone] VianneyJannethJaved, PT Pain of left hip (Primary Dx); Displaced intertrochanteric fracture of left femur, sequela 08/31/2024 3:00 PM EDT Treatment [address] [phone] Olu English, ADMEASURER Pain of left hip (Primary Dx); Displaced intertrochanteric fracture of left femur, sequela 08/29/2024 12:15 PM EDT Treatment [address] [phone] VianneyJannethJaved, PT Pain of left hip (Primary Dx); Displaced intertrochanteric fracture of left femur, sequela 08/15/2024 1:30 PM EDT Office Visit Orthopedic Surgery [facility] 250 175 [facility] 250 [place] [phone] Jerardo Kelley DPM Pain in toes of both feet (Primary Dx); Arthritis of both feet; Ingrown right big toenail; PVD (peripheral vascular disease) ([facility] V24); Dermatophytosis, nail from Last 3 Months Immunizations Name Administration [...] Negative examination UPPER GASTROINTESTINAL ENDOSCOPY 2004 PROCEDURE: [place] UPPER GI ENDOSCOPY PERFORMED; COMMENT: Reflux esophagitis CHOLECYSTECTOMY 03/07/2015 PROCEDURE: HISTORICAL CHOLECYSTECTOMY; COMMENT: Negative IOC. PARATHYROIDECTOMY 2012 PROCEDURE: HISTORICAL PARATHYROIDECTOMY; COMMENT: Symptomatic hyperparathyroidism KIDNEY STONE SURGERY PROCEDURE: [place] NEPHROLITHOTOMY REMOVAL CALCULUS; COMMENT: History of multiple procedures for stones COLONOSCOPY 2015 PROCEDURE: HISTORICAL COLONOSCOPY; COMMENT: small right colon polyps x 4: Adenomas 3, normal mucosa 1. COLONOSCOPY 10/05/2019 PROCEDURE: HISTORICAL COLONOSCOPY; COMMENT: 8 [...] Sign Reading Time Taken Comments Blood Pressure 135/72 10/09/2024 2:55 PM EDT Pulse 67 10/09/2024 2:55 PM EDT Temperature 36.7 C (98.1 F) 07/19/2024 8:06 AM EDT Respiratory Rate 14 04/16/2024 4:31 PM EST Oxygen Saturation 98% 04/16/2024 4:31 PM EST Inhaled Oxygen Concentration - - Weight 70.3 kg (155 lb) 10/09/2024 2:55 PM EDT Height 167.6 cm (5' 6 ) 10/09/2024 2:55 PM EDT Body Mass Index 25.02 10/09/2024 2:55 PM EDT Plan of Treatment Upcoming Encounters Date Type Department Care Team (Late st Contact Info) Description 11/21/2024 2:30 PM EDT Treatment [facility] Rehabilitation [facility] 175 [facility] 350 [place] [phone] David Faith, PT 175 [place] [address] 12/19/2024 2:45 PM EDT Office Visit Orthopedic Surgery [facility] 250 175 [facility] 250 [place] [phone] Jerardo Kelley, DEIDRA [address] [place] [address] 01/28/2025 1:15 PM EST Office Visit Adult Medicine [address] [phone] Zeke Herrera MD [address] [place] [address] Health Maintenance Due Date Last Done Comments RSV Immunization Adult Patients (1 - 1-dose 75+ series) 2021 Social Influencers of Health Screening 02/27/2022 Falls Risk Assessment 06/22/2023 06/21/2022 Medicare Annual Wellness Visit 06/22/2023 06/21/2022 COVID-19 Vaccine ( season) 2023 01/12/2023, 12/21/2021, 01/24/2021, Additional history exists Depression Screening 03/21/2024 Colorectal Cancer Screening: Colonoscopy 10/04/2024 Influenza Vaccine (#1) 2024 , 12/21/2021, 12/30/2020, Additional history exists Cholesterol Screening [...] negotiate 6 in curb with spc only Insurance MEDICARE [facility] MEDICARE Care Teams Rn Neonatal Relationship Specialty Start Date End Date Zeke Herrera MD [address] [place] [phone] PCP - General Internal Medicine 02/06/24
--- OUTSIDE RECORDS SUMMARY | 2024-11-15 16:47 | XMS_ITS ---
Author Name [facility] Organization Unknown Care Team Organization Name Specialty Phone Email Start Date End Da te [facility] AC 11/07/[address] [facility] 03/02/[address] [facility] 01/26/2022 4
== END 2024-11-15 16:45 | disposition home or self-care (01) ==
LOC: HO.HOSX 16:44
DX: M25.552 Pain in left hip (principal)
CPT/HCPCS: 73502

== ENCOUNTER 2024-11-16 09:26 | Outpatient (AMB) | payer OTHER, MEDICARE, SELFPAY ==
--- OUTSIDE RECORDS SUMMARY | 2024-01-09 09:51 | XMS_ITS | Encounter Summary ---
Author Organization [facility] [address] Care Team Providers Care Waterproofer Helper Name Role Phone Zeke Herrera MD Primary Care Provider [phone] Encounter Details Date Type Department Care Team (Late st Contact Info) Description 01/09/2024 9:51 AM EDT Hospital Encounter TH HISTORIC ENCOUNTERS EASTERN CONVERSION ONLY Social History Tobacco Use Types Packs/Day Years Used Date Smoking Tobacco: Never Smokeless Tobacco: Never Alcohol Use Standard Drinks/Week Comments No 0 (1 standard drink = 0.6 oz pur e alcohol) Sex and Gender Information Value Date Recorded Sex Assigned at Male 06/15/2024 3:08 PM EDT Legal Sex Male 4:50 AM EST Gender Identity Male 06/15/2024 3:08 PM EDT Sexual Orientation Straight 06/15/2024 3: 08 PM EDT documented as of this encounter Plan of Treatment Upcoming Encounters Date Type Department Care Team (Late st Contact Info) Description 11/21/2024 2:30 PM EDT Treatment [facility] Outpatient Rehabilitation [facility] 175 [facility] [address] [place] [address] David Faith, PT 175 [place] [address] 12/19/2024 2:45 PM EDT Office Visit Orthopedic Surgery [facility] 250 175 [facility] 250 [place] [address] Jerardo Kelley, DPM 230 [place] [address] 01/28/2025 1:15 PM EST Office Visit Adult Medicine [facility] [address] [place], [place] [phone] Zeke Herrera MD [address] [place] [address] documented as of this encounter Goals Goal Patient Goal Type Associated Problems Recent Progress Patient-Stated? Author PT LTG x 15 visits General Improving(04/2024 2:35 PM EDT) No David Faith, PT Note: Pt will ambulate with symmetrical step length Pt will be able to perform 5 reps sit to stand without UE support Pt will be able to negotiate [address] only documented as of this encounter Visit Diagnoses Not on filedocumented in this encounter Care Teams Waterproofer Helper Relationship Specialty Start Date End Date Zeke Herrera MD PCP - General 09/27/05 02/05/24 documented as of this encounter
--- OUTSIDE RECORDS SUMMARY | 2024-11-13 11:00 | XMS_ITS | Encounter Summary ---
Author Organization [employer] [place] [address] Care Team Providers Care Turf Farmer Name Role Phone Zeke Herrera MD Primary Care Provider [phone] Encounter Details Date Type Department Care Team (Late st Contact Info) Description 11/13/2024 11:00 AM EDT Treatment [address] [address] Leeroy Graham, MONTSE Pain of [...] Graham PTA - 11/13/2024 11:00 AM EDT [facility] - Outpatient PHYSICAL THERAPY DAILY TREATMENT NOTE - OP Date: 11/13/2024 Visit Number: 14 Patient Name: Jn Resendez : 1945 Age: 79 y.o. Gender: male Diagnosis: ICD-10-CM ICD-9-CM 1. Pain of left hip M25.552 719.45 Date of Onset/Surgery: 11/18/2023 Referring Provider: Randi Bui PA Insurance: [facility]: [facility] / Plan: CORVEL / Product Type: *No Product type* / Patient Identified by: Leeroy Graham PTA Language: Speaks and understands Moroccan as preferred language with no application security developer required Medications: Current Outpatient Medications on File [...] today could be better could be worse DEMAROI Chart Reviewed: Yes Pain: patient reports pain [...] Info) Description 11/21/2024 2:30 PM EDT Treatment [facility] Outpatient Rehabilitation [facility] 175 [facility] 350 [place] [phone] David Faith, PT 175 [place] [address] 12/19/2024 2:45 PM EDT Office Visit Orthopedic Surgery [facility] [address] [phone] Jerardo Kelley, DEIDRA 230 [place] [address] 01/28/2025 1:15 PM EST Office Visit Adult Medicine [address] [phone] Zeke Herrera MD [address] [place] [address] documented as of this encounter Goals Goal [...] Primary documented in this encounter Care Teams Turf Farmer Relationship Specialty Start Date End Date Zeke Herrera MD [address] [place] [phone] PCP - General Internal Medicine 02/06/24 documented as of this encounter
--- OUTSIDE RECORDS SUMMARY | 2024-11-14 14:30 | XMS_ITS | Encounter Summary ---
Author Organization [place] [address] Care Team Providers Care Biometrics Technician Name Role Phone Zeke Herrera MD Primary Care Provider [phone] Encounter Details Date Type Department Care Team (Latest Contact Info) Description 11/14/2024 2:30 PM EDT Treatment [facility] [address] [phone] David Faith, PT 175 [place] [address] Pain of left hip (Primary Dx); Displaced intertrochanteric fracture of left femur, sequela Social History Tobacco Use Types Packs/Day Years [...] as of this encounter Progress Notes * David Faith, PT - 11/14/2024 2:30 PM EDT [facility] Outpatient PHYSICAL THERAPY RE-EVALUATION/Progress Report Date: 11/14/2024 Visit Number: 20 Patient Name: Jn Resendez : 1945 Age: 79 y.o. Gender: male Diagnosis: ICD-10-CM ICD-9-CM 1. Pain of left hip M25.552 719.45 2. 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 On December 18 underwent left hip ORIF. Initially to rehab then then home with home therapies which ended on 12/30/23> Pt attended outpatient PT through 03/28/2024 with good results. Reports Sx have once again increased after stopping PT. Pt now referred back toPT. Pt is out on due to current injury. Referring Provider: Randi Bui PA Insurance: Payor: [employer] / Plan: CORVEL / Product Type: *No Product type* / Patient identified by: David Faith, PT Language: Speaks and understands Maltese as preferred language with no hand stonecutter required Chart Reviewed: Yes Medications: Current Outpatient Medications on File Prior [...] mouth 1 (one) time each day. memantine (NAMENDA XR) 21 mg extended release capsule TAKE 1 CAPSULE BY MOUTH ONCE A DAY. 90 capsule 1 [DISCONTINUED] memantine (Namenda XR) 21 mg extended release capsule Take 1 capsule (21 mg total) by mouth 1 (one) time each day. 90 capsule 1 No current facility-administered medications on file prior to visit. Precautions: none SUBJECTIVE History of Present Illness/Subjective Report: Pt reports: I'm not using the cane. It still hurts though. Is the patient at Risk for Falls: No Pain: Unable to comprehend pain scale OBJECTIVE General Observations/Comments: symmetrical gait pattern, with antalgic gait. *= Pain LE MMT Right Left Ankle PF SLHR 4 reps 1 Ankle DF 5/5 5/5 Ankle Inversion 5/5 5/5 Ankle Eversion 5/5 5/5 Knee extension 5/5 4+/5 Knee flexion 5/5 5/5 Hip ER 4/5 4/5 Px Hip IR 4/5 4+/5 Hip flexion 5/5 4/5 Hip abduction 4-/5 4-/5 Hip adduction 3+/5 3/5 Hip extension 3+/5 3/5 Ability to standard bridge 100% Ability to unilateral bridge 50% Clears table Tight hip flexors B, tight HS, mild quad tightness Suspects due to compensation LE ROM----> in degrees WFL unless otherwise noted AROM Right AROM Left PROM Right PROM Left Hip flexion (0-120) 92 93 114 115 px Hip IR (0-45) 10 8 12 10 Knee flexion (0-150) Knee extension (0) 6 4 3 0 px Special Tests: Positive: Negative: SLR TREATMENT INTERVENTION NuStep L 6 x 5 mins seat 8 Standing hamstring and hip flexor stretch with foot on TRUE 2 x 30 sec hold Calf Stretching on Slant board 3 x 20 se Step ups to 6 in step 2 x 10 side step ups x 10 4 in Re-eval components Pt education: yes ASSESSMENT/Response to Treatment: Jn Resendez is a 79 y.o. male has attended 20 PT visits to date. Pt's improvement has slowed,although he is now able to perform at least one rep sit to stand, and dc spc. Pt still apprehensiveabout damage to repair with some IADLs. At this point, this PT would normally suggest something like work conditioning as this would likely help pt achieve maximum functional outcome. These programs are usually self directed, and tend to be 3-4 hrs/day, for 4-8 wks. However, due to mild cognitive deficits, I'm not sure how appropriate it would be to have this specific patient to transition to oneof those programs. A compromise to this unique situation would be something like 3-4 x wk x 1-1.5 hr, x 6-8 wks of PT directed deficit related more frequent visits, longer in duration, and crossing over to conditioning as well, whether in this facility, or in a work conditioning facility, provided assurances can be made he would receive the kind of instruction and supervision he needs. Rehabilitation Potential: Rehab Potential: Fair Patient Education: [x] Discussed, with patient and/or caregiver, the recommended plan of care/goals, the importance oftherapy and appointment compliance in order to achieve goals in a timely manner. GOALS Goals Addressed This Visit's Progress COMPLETED: PT STG x 8 visits Pt will be able to perform full bridge to improve bed mobility MET Pt will be able to perform one rep sit to stand without UE support MET Pt will improve hip add strength to 3/5 MET Pt will require no assist with supine to sit MET PLAN Pt's improvement has slowed, although he is now able to perform at least one rep sit to stand, and dc spc. Pt still apprehensive about damage to repair with some IADLs. At this point, this PT would normally suggest something like work conditioning as this would likely help pt achieve maximum functional outcome. These programs are usually self directed, and tend to be 3-4 hrs/day, for 4-8 wks. However, due to mild cognitive deficits, I'm not sure how appropriate it would be to have this specificpatient to transition to one of those programs. A compromise to this unique situation would be something like 3-4 x wk x 1-1.5 hr, x 6-8 wks of PT directed deficit related more frequent visits, longer in duration, and crossing over to conditioning as well, whether in this facility, or in a work conditioning facility, provided assurances can be made he would receive the kind of instruction and supervision he needs. BILLING TOTAL TREATMENT TIME: 30 Minutes Documentation completed by David Faith, PT [address] [address] Dept: [phone] Dept PATIENT NAME: Jn Resendez : 1945 Certification: This is to certify that the above named patient, who is under my care, requires skilled Therapy services as described in the above treatment plan. I further certify that the services outlined in this plan are skilled and medically necessary. I have reviewed this plan for rehabilitation services, and I recommend that these services continue to meet the above stated goals and plan. SIGNATURE: DATE Randi Bui PA Referring provider Phone: N/A Fax: documented in this encounter Plan of Treatment Upcoming Encounters Date Type Department Care Team (Late st Contact Info) Description 11/21/2024 2:30 PM EDT Treatment [facility] Outpatient Rehabilitation [facility] [address] [phone] David Faith PT 175 [place] [address] 12/19/2024 2:45 PM EDT Office Visit Orthopedic Surgery [facility] [address] [phone] Jerardo Kelley, DPKristin 230 [place] [address] 01/28/2025 1:15 PM EST Office Visit Adult Medicine [address] [phone] Zeke Herrera MD [address] [place] [address] documented as of this encounter Goals Goal Patient Goal Type Associated Problems Recent Progress Patient-Stated? Author PT LTG x 15 visits General Improving(04/2024 2:35 PM EDT) No David Faith PT Note: Pt will ambulate with symmetrical step length Pt will be able to perform 5 reps sit to stand without UE support Pt will be able to negotiate [address] only documented as of this encounter Visit Diagnoses Diagnosis Pain of left hip- Primary Displaced intertrochanteric fracture of left femur, sequela documented in this encounter Care Teams Biometrics Technician Relationship Specialty Start Date End Date Zeke Herrera MD 4 [place] [address] PCP - General Internal Medicine 02/06/24 documented as of this encounter
[2024-11-16 09:35] VITALS: BMI 24.2
--- NOTE | 2024-11-16 09:35 | MHC.OFFVIS ---
Vital Signs 11/16/24 09:35 Height 5 ft 6 in Weight 150 lb BMI 24.2 Intake Visit Reasons: OV-LT hip intertrochanteric FC DOS 11/18/23 Intake Note: Jn is a 79 year old male who presents today post-operatively status post Left Hip ORIF with IM Nail Placement, DOS: 11/18/[address] Churchill. At his last visit he was advised to continue taking blood thinners and going to physical therapy. Patient reports today he continues going to physical therapy and taking his blood thiners. He is using a cane to aid with ambulation as he sometimes feels like he is going to fall. Denies any pain today. Allergies No Known Allergies Allergy (Verified 11/16/24 09:43) HPI HPI OV-LT hip intertrochanteric FC DOS 11/18/23: Details: Jn is a 79 year old male who presents today post-operatively status post Left Hip ORIF with IM Nail Placement, DOS: 11/18/[address] Churchill. At his last visit he was advised to continue taking blood thinners and going to physical therapy. Patient reports today he continues going to physical therapy and taking his blood thiners, as he has a DVT. He is using a cane to aid with ambulation as he sometimes feels like he is going to fall. Denies any pain today. [facility] Medical History Kidney stones Chronic anticoagulation Left leg DVT Prostate cancer Elevated PSA Surgical History History of cystoscopy Social History Household Members: Family and Children Housing: House Are you a primary care team assistant to a significant other at home: No Do you presently have visiting nurse or other home services: No Patient Tobacco Use Status: Never used Tobacco Advance Directives Date on File: 11/16/23 service: No Review of Systems Const All systems reviewed & are unremarkable except as noted in HPI and below Physical Exam Vital Signs: BMI result Body Mass Index 24.2 Extrem Other: Incision site on left hip well-approximated and well-healed No evidence of surrounding erythema, ecchymosis No evidence of infection No erythema or edema noted Patient reports no tenderness to palpation about the left hip Patient is able to ambulate without difficulty Patient is able to forward flex the leg at the hip off of the chair he is sitting in without difficulty Distal sensation intact Capillary refill brisk Assessment & Plan Assessment & Plan (1) Closed intertrochanteric fracture of left femur: Code(s): S72.142A - Displaced intertrochanteric fracture of left femur, initial encounter for closed fracture Category: Medical (2) Chronic anticoagulation: Code(s): Z79.01 - long-term (current) use of anticoagulants Category: Medical Plan 1. 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
--- OUTSIDE RECORDS SUMMARY | 2024-11-16 10:15 | XMS_ITS | Clinical Summary ---
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 Lifelong anticoagulation Left leg DVT ([facility] V24, [facility] V28) 05/04/19 06 Overview (05/28/2023): IMO update Esophageal reflux 02/01/2005 Encounters Date Type Department Care Team Description 11/14/2024 2:30 PM EDT Treatment [facility] [address] [phone] David Faith, PT Pain of left hip (Primary Dx); Displaced intertrochanteric fracture of left femur, sequela 11/13/2024 11:00 AM EDT Treatment [facility] [address] [phone] Leeroy Graham, DEVELOPMENT ASSOCIATE Pain of left hip (Primary Dx) 11/06/2024 1:00 PM EDT Treatment [facility] [address] [phone] Erich Sandy, DEVELOPMENT ASSOCIATE Pain of left hip (Primary Dx) 10/24/2024 9:30 AM EDT Treatment [address] [phone] Olu English, DEVELOPMENT ASSOCIATE Pain of left hip (Primary Dx) 10/23/[address] [phone] VianneyDavid rosenberg, PT 10/17/2024 2:30 PM EDT Treatment [address] [phone] VianneyDavid rosenberg M, PT Pain of left hip (Primary Dx); Displaced intertrochanteric fracture of left femur, sequela 10/17/2024 1:30 PM EDT Office Visit Orthopedic Surgery [facility] 250 175 [facility] 250 [place] [phone] Jerardo Kelley, DPM Pain in toes of both feet (Primary Dx); Ingrown right big toenail; Arthritis of both feet; PVD (peripheral vascular disease) (CMS/[facility] V24); Dermatophytosis, nail 10/15/2024 5:00 PM EDT Treatment [address] [phone] VianneyDavid rosenberg M, PT Pain of left hip (Primary Dx); Displaced intertrochanteric fracture of left femur, sequela 10/11/2024 11:15 AM EDT Treatment [address] [phone] Leeroy Graham, DEVELOPMENT ASSOCIATE Pain of left hip (Primary Dx); Displaced intertrochanteric fracture of left femur, sequela 10/09/2024 3:00 PM EDT Consult Vascular Surgery [facility] 300 [facility] 210 [place] [phone] Kylie Toro MD Post-phlebitic syndrome (Primary Dx); Lower extremity edema; Chronic deep vein thrombosis (DVT) of distal vein of lower extremity, unspecified laterality (CMS/HCC V24, [facility] V28) 09/19/2024 1:45 PM EDT Treatment [address] [phone] VianneyJannethJaved, PT Pain of left hip (Primary Dx); Displaced intertrochanteric fracture of left femur, sequela 09/13/2024 1:30 PM EDT Treatment [address] [phone] Olu English, DEVELOPMENT ASSOCIATE Pain of left hip (Primary Dx) 09/10/2024 3:00 PM EDT Treatment [address] [phone] Vianney Javed, PT Pain of left hip (Primary Dx); Displaced intertrochanteric fracture of left femur, sequela 08/31/2024 3:00 PM EDT Treatment [address] [phone] Olu English, DEVELOPMENT ASSOCIATE Pain of left hip (Primary Dx); Displaced intertrochanteric fracture of left femur, sequela 08/29/2024 12:15 PM EDT Treatment [address] [phone] VianneyJannethJaved, PT Pain of left hip (Primary Dx); Displaced intertrochanteric fracture of left femur, sequela from Last 3 Months Immunizations Name Administration [...] Negative examination UPPER GASTROINTESTINAL ENDOSCOPY 2004 PROCEDURE: [place] UPPER GI ENDOSCOPY PERFORMED; COMMENT: Reflux esophagitis CHOLECYSTECTOMY 03/07/2015 PROCEDURE: HISTORICAL CHOLECYSTECTOMY; COMMENT: Negative IOC. PARATHYROIDECTOMY 2012 PROCEDURE: HISTORICAL PARATHYROIDECTOMY; COMMENT: Symptomatic hyperparathyroidism KIDNEY STONE SURGERY PROCEDURE: [place] NEPHROLITHOTOMY REMOVAL CALCULUS; COMMENT: History of multiple [...] Info) Description 11/21/2024 2:30 PM EDT Treatment [facility] 175 [facility] 350 [place] [phone] David Faith, PT 175 [place] [address] 12/19/2024 2:45 PM EDT Office Visit Orthopedic Surgery [facility] 250 175 [facility] 250 [place] [phone] Jerardo Kelley, DEIDRA 230 [place] [address] 01/28/2025 1:15 PM EST Office Visit Adult Medicine [address] [phone] Zeke Herrera MD [address] [place] [phone] Health Maintenance Due Date Last Done Comments [...] able to negotiate 6 in curb with [facility] only Insurance MEDICARE [facility] MEDICARE Care Teams Obstetrics And Gynecology Professor Relationship Specialty Start Date End Date Zeke Herrera MD [address] [place] [phone] PCP - General Internal Medicine 02/06/24
== END 2024-11-16 09:54 | disposition home or self-care (01) ==
LOC: HO.HOS 09:27
PROVIDERS: PCP Internal Medicine
DX: S72.142A Displaced intertrochanteric fracture of left femur, initial encounter for closed fracture (principal); Z79.01 Long term (current) use of anticoagulants
CPT/HCPCS: 99213

== ENCOUNTER → 2024-11-16 09:29 | Outpatient (BNV) | payer OTHER, MEDICARE, SELFPAY | PROVIDERS: Visit Provider Radiology Diagnostic Radiology | DX: M25.552 Pain in left hip (principal) | CPT/HCPCS: 73502 ==

== ENCOUNTER 2024-12-04 09:36 | Outpatient (REF) | payer OTHER, MEDICARE, SELFPAY ==
--- OUTSIDE RECORDS SUMMARY | 2024-01-09 09:51 | XMS_ITS | Encounter Summary ---
Author Organization [facility] [place] [address] Care Team Providers Care Planning And Analysis Manager Name Role Phone Zeke Herrera MD Primary Care Provider [phone] Encounter Details Date Type Department Care Team [...] Care Team (Late st Contact Info) Description 12/19/2024 2:45 PM EDT Office Visit Orthopedic Surgery - [place] [address] [phone] Jerardo Kelley, DPKristin 175 [facility] 250 [place] [address] 01/28/2025 1:15 PM EST Office Visit Adult [address], [place] [phone] Zeke Herrera MD [address] [place] [address] documented as of this encounter Goals Goal [...] on filedocumented in this encounter Care Teams Planning And Analysis Manager Relationship Specialty Start Date End Date Zeke Herrera MD PCP - General 09/27/05 02/05/24 documented as of this encounter
[2024-12-04 11:54] LABS: Prostate Specific Antigen 1.65 ng/mL (<0.05-4.0)
--- OUTSIDE RECORDS SUMMARY | 2024-12-04 12:18 | XMS_ITS | Clinical Summary ---
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 Lifelong anticoagulation Left leg DVT ([facility] V24, [facility] V28) 05/04/19 06 Overview (05/28/2023): IMO update Esophageal reflux 02/01/2005 Encounters Date Type Department Care Team Description 11/14/2024 2:30 PM EDT Treatment [facility] [address] [phone] David Faith, PT Pain of left hip (Primary Dx); Displaced intertrochanteric fracture of left femur, sequela 11/13/2024 11:00 AM EDT Treatment [facility] [address] [phone] Leeroy Graham, CERTIFIED APPLIANCE SERVICE TECHNICIAN Pain of left hip (Primary Dx) 11/06/2024 1:00 PM EDT Treatment [facility] [address] [phone] Erich Sandy, CERTIFIED APPLIANCE SERVICE TECHNICIAN Pain of left hip (Primary Dx) 10/24/2024 9:30 AM EDT Treatment [address] [phone] Olu English, CERTIFIED APPLIANCE SERVICE TECHNICIAN Pain of left hip (Primary Dx) 10/23/[address] [phone] VianneyDavid rosenberg, PT 10/17/2024 2:30 PM EDT Treatment [address] [phone] VianneyDavid rosenberg M, PT Pain of left hip (Primary Dx); Displaced intertrochanteric fracture of left femur, sequela 10/17/2024 1:30 PM EDT Office Visit Orthopedic Surgery [facility] 250 175 [facility] 250 [place] [phone] Jerardo Kelley, DPM Pain in toes of both feet (Primary Dx); Ingrown right big toenail; Arthritis of both feet; PVD (peripheral vascular disease) (CMS/HCC V24); Dermatophytosis, nail 10/15/2024 5:00 PM EDT Treatment [address] [phone] VianneyDavid rosenberg M, PT Pain of left hip (Primary Dx); Displaced intertrochanteric fracture of left femur, sequela 10/11/2024 11:15 AM EDT Treatment [address] [phone] Leeroy Graham, CERTIFIED APPLIANCE SERVICE TECHNICIAN Pain of left hip (Primary Dx); Displaced intertrochanteric fracture of left femur, sequela 10/09/2024 3:00 PM EDT Consult Vascular Surgery [facility] 300 [facility] 210 [place] [phone] Kylie Toro MD Post-phlebitic syndrome (Primary Dx); Lower extremity edema; Chronic deep vein thrombosis (DVT) of distal vein of lower extremity, unspecified laterality (CMS/HCC V24, [facility] V28) 09/19/2024 1:45 PM EDT Treatment [address] [phone] Vianney Javed, PT Pain of left hip (Primary Dx); Displaced intertrochanteric fracture of left femur, sequela 09/13/2024 1:30 PM EDT Treatment [facility] [address] [phone] TamekaOlu, CERTIFIED APPLIANCE SERVICE TECHNICIAN Pain of left hip (Primary Dx) 09/10/2024 3:00 PM EDT Treatment [address] [phone] Vianney, Javed, PT Pain of left hip (Primary [...] Negative examination UPPER GASTROINTESTINAL ENDOSCOPY 2004 PROCEDURE: [place] UPPER GI ENDOSCOPY PERFORMED; COMMENT: Reflux esophagitis CHOLECYSTECTOMY 03/07/2015 PROCEDURE: HISTORICAL CHOLECYSTECTOMY; COMMENT: Negative IOC. PARATHYROIDECTOMY 2012 PROCEDURE: HISTORICAL PARATHYROIDECTOMY; COMMENT: Symptomatic hyperparathyroidism KIDNEY STONE SURGERY PROCEDURE: [place] NEPHROLITHOTOMY REMOVAL CALCULUS; COMMENT: History of multiple [...] PM EDT Office Visit [facility] [place] [address] [phone] Jerardo Kelley DPM [address] [address] 01/28/2025 1:15 PM EST Office Visit Adult Medicine [facility] [address] [place] [phone] Zeke Herrera MD [address] [place] [phone] Health Maintenance Due Date Last Done Comments RSV Immunization Adult Patients (1 - 1-dose 75+ series) 2021 Social Influencers of Health Screening 02/27/2022 Falls Risk Assessment 06/22/2023 06/21/2022 Medicare Annual Wellness Visit 06/22/2023 06/21/2022 Depression Screening 03/21/2024 Colorectal Cancer Screening: Colonoscopy 10/04/2024 COVID-19 Vaccine ( season) 2024 01/12/2023, 12/21/2021, 01/24/2021, Additional history exists Influenza Vaccine (#1) 2024 , 12/21/2021, 12/30/2020, [...] in curb with spc only Insurance MEDICARE [facility] MEDICARE Care Teams Pc Network Technician Relationship Specialty Start Date End Date Zeke Herrera MD [address] [place] [phone] PCP - General Internal Medicine 02/06/24
== END 2024-12-04 09:37 | disposition home or self-care (01) ==
LOC: HO.LAB 09:36
PROVIDERS: PCP Internal Medicine; Visit Provider Urology
DX: C61 Malignant neoplasm of prostate (principal); Z12.5 Encounter for screening for malignant neoplasm of prostate
CPT/HCPCS: 36415; 84153

== ENCOUNTER 2024-12-21 12:57 | Outpatient (AMB) | payer OTHER, MEDICARE, SELFPAY ==
--- OUTSIDE RECORDS SUMMARY | 2024-01-09 09:51 | XMS_ITS | Encounter Summary ---
Author Organization [facility] [place] [address] Care Team Providers Care Filbert Grower Name Role Phone Zeke Herrera MD Primary Care Provider [phone] Encounter Details Date Type Department Care Team [...] Care Team (Late st Contact Info) Description 01/28/2025 1:15 PM EST Office Visit Adult Medicine [address] [phone] Zeke Herrera MD [address] [place] [phone] 02/20/2025 1:00 PM EST Office Visit Orthopedic Surgery - [address] [phone] Jerardo Kelley, DPKristin [address] [facility] 250 [place] [address] documented as of this encounter Goals Goal Patient Goal Type Associated Problems Recent Progress Patient-Stated? Author PT LTG x 15 visits General Improving(04/2024 2:35 PM EDT) David Baldwin, PT Note: Pt will ambulate with symmetrical step length Pt will be able to perform 5 reps sit to stand without UE support Pt will be able to negotiate [address] only documented as of this encounter Visit Diagnoses Not on filedocumented in this encounter Care Teams Filbert Grower Relationship Specialty Start Date End Date Zeke Herrera MD PCP - General 09/27/05 02/05/24 documented as of this encounter
--- OUTSIDE RECORDS SUMMARY | 2024-12-19 14:45 | XMS_ITS | Encounter Summary ---
Author Organization [employer] [place] [address] Care Team Providers Care Brusher Name Role Phone Zeke Herrera MD Primary Care Provider [phone] Reason for Visit * Reason Comments Foot Pain Pain in toes of both feetIngrown right big toenailArthritis of both feetPVD (peripheral vascular disease) (CMS/HCC V24)Dermatophytosis, nail Encounter Details Date Type Department Care Team (Late st Contact Info) Description 12/19/2024 2:45 PM EDT Office Visit Orthopedic Surgery - [place] [address] [phone] Jerardo Kelley, DPM [address] [address] Pain in toes of both feet (Primary Dx); Arthritis of both feet; PVD (peripheral vascular disease) (CMS/HCC V24); Ingrown right big toenail; Dermatophytosis, nail Social History Tobacco Use Types Packs/Day Years [...] as of this encounter Progress Notes * Jerardo Kelley DPM - 12/19/2024 2:45 PM EDT Referring MD: Javier Last PCP visit: 07/19/2024 IDENTIFIER: Mal is a 79 y.o. year old male who presents for consultation. CC: Bilateral foot pain HPI: 79-year-old male presents office for bilateral foot pain. Patient notes he has not had any recent infections to the feet though he continues to have pain at the distal yasmin of the digits bilaterally. Patient notes that he has difficulty in close toed shoes and prolonged ambulation. Patient is herefor evaluation and treatment ROS: GENERAL: Pt denies nausea, fever, vomiting, chills, or shortness of breath. Pt in NAD. CARDIOLOGY: pt denies chest pain, palpitations LUNGS: pt denies shortness of breath MUSCULOSKELETAL: See HPI, otherwise no joint pain or swelling, back pain, or muscle pain. SKIN: see HPI, otherwise no lesions, rash or itching NEURO: No persistent headache, weakness or numbness The remainder of the review of systems is noncontributory PAST MEDICAL HISTORY: Patient Active Problem List Diagnosis Left leg DVT ([facility] V24, CMS/[facility] V28) Kidney stone Esotropia Esophageal reflux DVT (deep venous thrombosis) ([facility] V24, CMS/[facility] V28) MCI (mild cognitive impairment) Pre-diabetes Prostate cancer ([facility] V24, [facility] V28) Trigger ring finger of right hand Degenerative tear of posterior horn of medial meniscus Pituitary mass ([facility] V24) SOCIAL HISTORY: Social History Tobacco Use Smoking status: Never Smokeless tobacco: Never Substance Use Topics Alcohol use: No ACTIVE MEDICATIONS: No outpatient medications have been marked as taking for the 12/19/24 encounter (Office Visit) with Jerardo Kelley DPM. ALLERGIES: @ALL@ PHYSICAL EXAM: There were no vitals taken for this visit. PODIATRIC EXAMINATION: GENERAL: Patient appears well nourished, with NAD. VASCULAR: Dorsalis pedis pulses are 1/4 bilaterally and Posterior tibial pulses are 0/4 bilaterally. Capillary filling time within normal limits the digits. No pallor on elevation or rubor on dependency. Positive hair growth. Many varicosities. +2 pitting edema. Denies rest pain or claudication pain. NEUROLOGICAL: Sharp/dull sensation intact, protective sensation intact on [place]. Multiple peripheral neuropathies bilaterally ORTHOPEDIC: Good muscle strength 5/5 of all flexors and extensors. Dorsi flexion of ankle ,10 degrees, plantar flexion WNL. No muscle atrophy. Arthritic changes to the midfoot bilaterally with dorsalexostoses that are palpable. Contractures of digits 2 through 5. DERMATOLOGICAL:.No masses or skin lesions noted. Normal skin temperature, normal skin turgor. Nailscontinue to be ingrown at the great toes bilaterally with some swelling on the medial lateral border. Nails are once again elongated dystrophic discolored x 10 with subungual debris BIOMECHANICS: STJ ROM wnl, MTJ ROM wnl, 1st MPJ ROM wnl. IMPRESSION: 1. Pain in toes of both feet 2. Arthritis of both feet 3. PVD (peripheral vascular disease) (CMS/[facility] V24) 4. Ingrown right big toenail 5. Dermatophytosis, nail PLAN: Pt was seen and examined, history reviewed. He was encouraged to ambulate and proper shoe gear as this limits chances for arthritic flares and pain Patient continues to have decreased pulses bilateral feet was educated on the need for continued ambulation in order to promote blood flow to the feet patient understands that though he has ingrowth and pain to the great toes bilaterally he has decreased blood flow and matrixectomy may result in nonhealing wounds infection and further amputation. Nail debridement performed to nails 1-5 bilateral as nails were described to be causing pain and difficulty for walking while in shoegear at their previous length. They were debrided in thickness andlength, with no incident. Clinical evidence of mycosis is documented which required active treatment. Patient expressed immediate relief. Patient is to RTC in 9 weeks Patient can continue with the topical antifungal medication as it does appear to be helping with the thickness and discoloration of the nail Jerardo Kelley DPM documented in this encounter Plan of Treatment Upcoming Encounters Date Type Department Care Team (Late st Contact Info) Description 01/28/2025 1:15 PM EST Office Visit Adult Medicine [facility] [address] [place], [place] [phone] Zeke Herrera MD [address] [place] [address] 02/20/2025 1:00 PM EST Office Visit Orthopedic Surgery - [place] [address] [facility] [address] [phone] Jerardo Kelley, DPKristin 175 [facility] [place] [address] [place] [id number] documented as of this encounter Goals Goal Patient Goal Type Associated Problems Recent Progress Patient-Stated? Author PT LTG x 15 visits General Improving(04/2024 2:35 PM EDT) aDvid Baldwin, PT Note: Pt will ambulate with symmetrical step length Pt will be able to perform 5 reps sit to stand without UE support Pt will be able to negotiate [address]c only documented as of this encounter Visit Diagnoses Diagnosis Pain in toes of both feet- Primary Arthritis of both feet PVD (peripheral vascular disease) (CMS/HCC V24) Unspecified peripheral vascular disease Ingrown right big toenail Ingrowing nail Dermatophytosis, nail Dermatophytosis of nail documented in this encounter Care Teams Brusher Relationship Specialty Start Date End Date Zeke Herrera MD [address] [place] [address] PCP - General Internal Medicine 02/06/24 documented as of this encounter
--- NOTE | 2024-12-21 12:57 | A.OFFVIS_ITS ---
Intake Visit Reasons: 6m/PSA Intake Note: Patient is present for 6M follow up Telehealth Urology Medication:FINASTERIDE Antibiotic Allergy:NONE Blood Thinner:APIXABAN Reference Services Head Required: No Accompanied by: Self / Same As Patient Allergies No Known Allergies Allergy (Verified 12/21/24 12:58) HPI Comments Details: Jn is a pleasant male. He is a patient of Dr. Herrera. He is seen for the following urologic conditions - prostate cancer low volume low-grade disease Telemedicine Evaluation 15 min Consultation [employer] [place] [employer] PSA remains stable Six-month follow-up PSA Finasteride - continue Tuesday/Tuesday/Tuesday No other issues Prostate cancer - grade group 1 low volume disease 12/05 Current therapy finasteride and surveillance Prostate cancer diagnosed by Dr. Cagle Pathology at diagnosis 2 cores. Flom 3 + 3. No more than 10%. PSA at diagnosis 4.6 Family history prostate cancer Current therapy active surveillance - 2nd opinion obtained at [facility] with agreement for course of action PSA - 10/07 3.2, 12/09 2.9, 04/11 2.6, 08/09 2.7, 02/09 2.4, 08/10 2.4, 03/12 3.1, 06/11 1.8, 12/12 1.8, 06/12 1.7, 12/13 1.6 Imaging 06/11 - prostate MRI. 35 g gland. No suspicious lesion PI-RADS 2 or greater shown on imaging Therapeutic plan -above PFS Medical History Kidney stones Chronic anticoagulation Left leg DVT Prostate cancer Elevated PSA Surgical History History of cystoscopy Social History Household Members: Family and Children Housing: House Are you a primary care team coordinator scheduler to a significant other at home: No Do you presently have visiting nurse or other home services: No Patient Tobacco Use Status: Never used Tobacco Advance Directives Date on File: 11/16/23 service: No Review of Systems Const All systems reviewed & are unremarkable except as noted in HPI and below Reports no additional complaints Resp Reports no additional complaints GI Reports no additional complaints Reports as per HPI Musc Reports no additional complaints Physical Exam Telemedicine evaluation Appropriate responses Regular breathing rate and rhythm HEENT Head: Yes normal to inspection Ears: hearing grossly normal bilaterally Eyes General: appearance normal, both eyes and all related structures Neck Neck: Yes normal visual inspection Chest Chest palpation & inspection: normal inspection of the chest Resp Effort & Inspection: normal respiratory effort and able to speak in complete sentences Telehealth Telehealth Telehealth Platform: [employer] Location of provider rendering services: practice address Location of patient: address on file Patient Identification confirmed using: Name, : Yes Telehealth method: video Patient verbally consented to treatment: Yes Patient verbally consented to billing insurance company: Yes Patient informed of any privacy concerns related to visit: Yes Minutes spent on Phone/Video with Pt.: 15 Assessment & Plan Assessment & Plan (1) Elevated PSA: Code(s): R97.20 - Elevated prostate specific antigen [PSA] Category: Medical (2) Prostate cancer: Comment: 11/201617 Grade group 1 low volume Code(s): C61 - Malignant neoplasm of prostate Category: Medical Plan Six-month follow-up PSA office Orders: Orders Prostate Specific Antigen 6 Months C61 - Malignant neoplasm of prostate Patient Instructions: This note is constructed using voice recognition software. While every effort hendrix s been made to ensure accuracy green end department supervisor errors may have been included. Imaging studies, laboratory and physical exam results were discussed and reviewed in detail. No major barriers to patient understanding were identified. An opportunity to ask questions regarding the treatment plan was provided. All questions were answered. The patient expressed understanding and agreement with the above treatment plan. The patient is aware they should contact our office by phone for worsening of their current condition or the appearance of new urologic symptoms. Compliance is encouraged with any medications and followup testing that is ordered. It is a privilege to participate in the urologic care of your patient. If you have any questions or concerns regarding treatment for the above conditions, or other urologic issues, please do not hesitate to contact me. The office telephone contact is [phone]. Sincerely, Dr Johnny Pearson MD, LINDA [facility] - Urology Compassionate Specialist Care for the Genitourinary System Coding Level of Care Code Tele Est Pt Level 3 (62064) Complex EM visit Add On G2211 Diagnoses Elevated PSA R97.20 Prostate cancer C61
--- OUTSIDE RECORDS SUMMARY | 2024-12-21 13:20 | XMS_ITS | Clinical Summary ---
Author Organization 175 [facility] Address [address] [place] [address] Phone Care Team Providers Care Silica Filter Operator Name Role Phone Zeke Herrera MD Primary Care Provider [phone] Allergies No known active allergies Medications acetaminophen (TYLENOL) 500 mg tablet Take 2 tablets (1,000 mg total) by mouth every 8 (eight) hours if needed for mild pain. 09/04/2019 Active calcium carbonate-vitam in D3 600 mg-10 mcg (400 unit) capsule Take by mouth. Active loratadine (CLARITIN) 10 mg tablet Take 1 tablet (10 mg total) by mouth 1 (one) time each day. 06/21/2022 Active finasteride (PROPECIA) 1 mg tablet Take 1 tablet (1 mg total) by mouth 3 (three) times a week. Do not crush, chew, or split. Active Eliquis 5 mg tablet TAKE ONE TABLET BY MOUTH TWICE A DAY 180 tablet 1 05/07/2024 Active memantine (NAMENDA XR) 21 mg extended release capsule TAKE 1 CAPSULE BY MOUTH ONCE A DAY. 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 Lifelong anticoagulation Left leg DVT ([facility] V24, [facility] V28) 05/04/19 06 Overview (05/28/2023): IMO update Esophageal reflux 02/01/2005 Encounters Date Type Department Care Team Description 12/19/2024 2:45 PM EDT Office Visit Orthopedic Surgery [facility] 250 175 [facility] [address] [place] [phone] Jerardo Kelley, DPM Pain in toes of both feet (Primary Dx); Arthritis of both feet; PVD (peripheral vascular disease) ([facility] V24); Ingrown right big toenail; Dermatophytosis, nail 11/14/2024 2:30 PM EDT Treatment [facility] [address] [phone] David Faith, PT Pain of left hip (Primary Dx); Displaced intertrochanteric fracture of left femur, sequela 11/13/2024 11:00 AM EDT Treatment [facility] 175 [facility] [address] [place] [phone] Leeroy Graham, VIDEOGAME DESIGNER Pain of left hip (Primary Dx) 11/06/2024 1:00 PM EDT Treatment [address] [phone] Erich Sandy, VIDEOGAME DESIGNER Pain of left hip (Primary Dx) 10/24/2024 9:30 AM EDT Treatment [address] [phone] Olu English, VIDEOGAME DESIGNER Pain of left hip (Primary Dx) 10/23/[address] [phone] David Faith, PT 10/17/2024 2:30 PM EDT Treatment [address] [phone] VianneyDavid rosenberg, PT Pain of left hip (Primary Dx); Displaced intertrochanteric fracture of left femur, sequela 10/17/2024 1:30 PM EDT Office Visit Orthopedic Surgery [facility] 250 175 [facility] [address] [place] [phone] Jerardo Kelley, DPM Pain in toes of both feet (Primary Dx); Ingrown right big toenail; Arthritis of both feet; PVD (peripheral vascular disease) ([facility] V24); Dermatophytosis, nail 10/15/2024 5:00 PM EDT Treatment [address] [phone] David Faith, PT Pain of left hip (Primary Dx); Displaced intertrochanteric fracture of left femur, sequela 10/11/2024 11:15 AM EDT Treatment [address] [phone] Leeroy Graham, VIDEOGAME DESIGNER Pain of left hip (Primary Dx); Displaced intertrochanteric fracture of left femur, sequela 10/09/2024 3:00 PM EDT Consult Vascular Surgery [facility] 300 [facility] [address] [place] [phone] Kylie Toro MD Post-phlebitic syndrome (Primary Dx); Lower extremity edema; Chronic deep vein thrombosis (DVT) of distal vein of lower extremity, unspecified laterality ([facility] V24, [facility] V28) from Last 3 Months Immunizations Immunization Administration Dates Next Due Influenza Quadravalent, 0.5m [...] Negative examination UPPER GASTROINTESTINAL ENDOSCOPY 2004 PROCEDURE: UT UPPER GI ENDOSCOPY PERFORMED; COMMENT: Reflux esophagitis CHOLECYSTECTOMY 03/07/2015 PROCEDURE: HISTORICAL CHOLECYSTECTOMY; COMMENT: Negative IOC. PARATHYROIDECTOMY 2012 PROCEDURE: HISTORICAL PARATHYROIDECTOMY; COMMENT: Symptomatic hyperparathyroidism KIDNEY STONE SURGERY PROCEDURE: UT NEPHROLITHOTOMY REMOVAL CALCULUS; COMMENT: History of multiple [...] 1:15 PM EST Office Visit Adult Medicine [address] [phone] Zeke Herrera MD [address] [place] [address] 02/20/2025 1:00 PM EST Office Visit Orthopedic Surgery - [place] 250 175 [facility] [address] [place] [address] Jerardo Kelley, DPKristin 175 [facility] [address] [place] [address] Health Maintenance Due Date Last Done Comments [...] in curb with spc only Insurance MEDICARE [facility] MEDICARE Care Teams Silica Filter Operator Relationship Specialty Start Date End Date Zeke Herrera MD [address] [place] [phone] PCP - General Internal Medicine 02/06/24
== END 2024-12-21 14:54 | disposition home or self-care (01) ==
LOC: HO.HUSH 12:57
PROVIDERS: PCP Internal Medicine; Visit Provider Urology
DX: R97.20 Elevated prostate specific antigen [PSA] (principal); C61 Malignant neoplasm of prostate
CPT/HCPCS: 99213; G2211